=== PATIENT | female | born 1955 | race Caucasian/White ===

== ENCOUNTER 2016-11-01 12:10 | Day surgery (SDC) | payer OTHER ==
[~2016-11-01] VITALS: Ht 166.4 cm; Wt 63.9 kg
[~2016-11-01 12:10] MED LIST: ACET-171 PO; DXM4T PO; IBUP200C PO; LORA0.5T PO; Lactated Ringer's 1,000 ML IV SCH; MOME30SO TP; ONDA8TAB7 PO; OXYC10TA69 PO; OXYC1TAB24 PO; PROC-4 PO; Vancomycin Inj 1,000 MG in IV Premix 1 EACH IV ONE
[2016-11-01] MEDS ORDERED: fentaNYL-PF 50 mCg/mL 2 mL Inj ONE (12:11)
[2016-11-01] MEDS ORDERED: Propofol 10,000 mCg/mL 20 mL Inj ONE (12:11)
[2016-11-01] MEDS ORDERED: Dexamethasone 4 mg/mL Inj ONE (12:11)
[2016-11-01] MEDS ORDERED: Vancomycin 1,000mg/200 mL NS IV ONE (12:47)
[2016-11-01 13:00] VITALS: BP 118/70; PULSE 66; RESP 16; O2SAT 98
[2016-11-01] MEDS ORDERED: Lactated Ringer's 1,000 ML IV ONE (13:00)
[2016-11-01] MEDS ORDERED: Bupivacaine-MPF 0.25%/EPI 30 mL Inj INJ ONE (16:30)
[2016-11-01] MEDS ORDERED: Lidocaine PF 1% 30 mL Inj INFILTRATE ONE (16:30)
[2016-11-01] MEDS ORDERED: HepLOK Flush 100 unit/mL 5 mL Inj IVFLUSH ONE (16:30)
[2016-11-01] MEDS ORDERED: Lactated Ringer's 1,000 ML IV SCH (16:42)
[2016-11-01] MEDS ORDERED: Lactated Ringer's 500 ML IV PRN (16:42)
[2016-11-01] MEDS ORDERED: EPHEDrine Sulfate 50 mg/mL Inj IVPUSH PRN (16:45)
[2016-11-01] MEDS ORDERED: Labetalol 5 mg/mL 4 mL Inj IV PRN (16:45)
[2016-11-01] MEDS ORDERED: fentaNYL-PF 50 mCg/mL 2 mL Inj IVPUSH PRN (16:45)
[2016-11-01] MEDS ORDERED: HYDROmorphone 1 mg/mL Inj IVPUSH PRN (16:45)
[2016-11-01] MEDS ORDERED: Atropine 0.4 mg/mL Inj IVPUSH PRN (16:45)
[2016-11-01] MEDS ORDERED: MetoCLOpramide 5 mg/mL 2 mL Inj IVPUSH PRN (16:45)
[2016-11-01] MEDS ORDERED: Ondansetron 2 mg/mL 2 mL Inj IVPUSH PRN (16:45)
[2016-11-01] MEDS ORDERED: Phenylephrine 10,000 mCg/mL Inj IVPUSH PRN (16:45)
[2016-11-01 17:05] VITALS: BP 121/75; PULSE 71; RESP 14; O2SAT 98
--- NOTE | 2016-11-01 18:14 | PCM.ANEP1 ---
Post Anesthesia Phase 1 PACU Phase 1 Assessment Vital Signs Vital Signs Date Time Temp Pulse Resp B/P Pulse Ox O2 Delivery O2 Flow Rate FiO2 11/01/16 17:05 36.3 71 14 121/75 98 Room Air 11/01/16 13:00 36.6 66 16 118/70 98 Room Air Anesthetic Administered: MAC Level of Alertness: Awake, talking LUCIANO's with Equal Strength: Yes Pain: No Nausea or Vomiting: No Oxygen Delivery: Simple Mask Lungs: Clear to Auscultation, Normal Air Movement Dermatome Level: Full Sensation Isacc Oliveira MD Nov 01, 2016 18:14
--- NOTE | 2016-11-01 18:14 | PCM.HPANE ---
Patient Data Surgeon Admitting Provider: Attending Provider:Pato Mojica MD Primary Care Physician:Sarah Mahajan MD Other Provider:Cydney Schofieldingham Anesthesia Reason for Visit Large B-Cell Lymphoma Ht/WT & BMI Height (Feet): 5 Height (Inches): 5.5 Weight (Kilograms): 63.957 Body Mass Index 23.00 Allergies Coded Allergies: No Known Allergies (Verified , 11/01/16) Past Anesthesia History Anesthesia History: Denies:: Anesthesia Reactions (Pain/anxiety meds cause nausea), Malignant Hyperthermia Diabetes History Hx Diabetes?: No MRSA MRSA: No Medications Reported Medications Dexamethasone 4 Mg Tablet4 Mg PO BID Ref 0 10/30/16 Ondansetron ODT (Zofran ODT)8 Mg Tablet8 Mg PO q8hrs PRN For Nausea 10/30/16 Lorazepam 0.5 Mg Tablet0.5-1 Mg PO HS PRN For Insomnia Ref 0 10/30/16 oxyCODONE-Acetaminophen 5-325 mg 1 Each Tablet1-2 Tab PO Q6H PRN For Pain Ref 0 10/27/16 Discontinued Reported Medications Mometasone Furoate (Elocon)30 Ml Solution1 Applic TP DAILY 0.1% 10/31/16 Oxycodone ER (Oxycontin)10 Mg Tab.er.12h10 Mg PO BID 10/30/16 Prochlorperazine Maleate (Compazine)10 Mg Rkctar58 Mg PO q6hrs prn 10/27/16 Acetaminophen 500 Mg Saqmeu424 Mg PO Q4-6 HRS PRN PRN For Pain 10/13/16 Ibuprofen 200 Mg [id number] Mg PO Q4-6HRS PRN PRN For Pain Ref 0 10/13/16 Omeprazole Magnesium (Prilosec Otc)20 Mg Tablet.dr20 Mg PO DAILY Ref 0 10/27/16 Cyanocobalamin (Vitamin B-12) (Vitamin B-12)250 Mcg Uffhybm818 Mcg PO DAILY 10/13/16 Cholecalciferol (Vitamin D3) (Vitamin D)1,000 Unit Tablet1,000 Unit PO DAILY Ref 0 10/13/16 Calcium Carbonate (Calcium)600 Mg Jvftco379 Mg PO DAILY 10/13/16 History History of ENT Problems?: Yes HEENT History: Positive for:: Sinus Problem (NASAL CONGESTION/DRAINAGE) Hx of Heart Problems?: No Cardiovascular History: Denies:: Cardiac Surgery Chest Pain Congestive Heart Failure Edema Heart Murmur Hypertension Irregular Heartbeat Pacemaker Rheumatic Fever Thrombophlebitis Hx of Respiratory Problem?: Yes Respiratory History: Denies:: Asthma COPD Chest Surgery (NEW PULMONARY NODULES ON CHEST CT) Dyspnea Emphysema Hemoptysis Pneumonia Tuberculosis Use of C-PAP Machine Hx Neurologic Problems?: No Neurological History: Denies:: Alzheimer's Disease CVA Dementia Dizziness Headaches Parkinson's Disease Seizures Hx of GI Problems?: Yes Gastrointestinal History: Denies:: Cirrhosis Diverticulitis Gastroesphageal Reflux Gastrointestinal Bleeding Heartburn Hepatitis Hiatal Hernia Rectal Bleeding Other GI Pertinent History: C/OF CONSTIPATION HX OF C. DIFF AFTER A COURSE OF ABX Hx of Problems?: No Genitourinary History: Denies:: HX of Hemodialysis Kidney Stones Urinary Tract Infection Female Hx: Denies:: Currently Pelvic Inflammatory Problems with Breasts? Skin History: Denies:: History Skin Disorders? Pressure Ulcers Hx Musculoskeletal Problems?: Yes Musculoskeletal History: Positive for:: Joint Replacement (PLATE IN LEFT ANKLE ) Musculoskeletal Trauma (S/P ORIF LT ANKLE) Denies:: Back Injury Hx of Psycho/Social Problems?: No Psycho Social History: Denies:: Anxiety Bipolar Disorder Hx Depression Suicide Attempt Hx Surgeries?: Yes (ORIF LT ANKLE) Hx Any Other Health Problems?: Yes Other History: Positive for:: Cancer (LARGE B-CELL LYMPHOMA/IV ACCESS=CURRENT PROBLEM) Hospitalization Denies:: Endocrine Disease (C/OF NIGHT SWEATS) Thyroid Disease History Blood Transfusions: Denies:: Blood Transfusions Hx Diabetes: No Hx Alcohol Use: NoHx Substance Use: No Smoking Status: Unknown if Ever Smoker Have You Smoked inLast 12 mo: No Stop/Bang S-Snoring: Do You Snore Loudly: No T-Tired: feel tired, fatigued: No O-Obsered: Observed not breath: No P-Blood Pressure: treated: No B- Body Mass Index > 35 kg/m2: No A- Age over 50: Yes N- Neck Large Circumference: No G- Gender Male: No KIM Total Score: 1 Risk Assessment Category Category 1A: Patient has history of documented sleep apnea, and HAS NOT received any narcotic, sedative or anesthesia administration during this stay. Category 1B: Patient has history of documented sleep apnea, and HAS received any narcotic , sedative or anesthesia administration during this stay Category 2: Patient has SUSPECTED Obstructive Sleep Apnea, and HAS received any narcotic , sedative or anesthesia administration during this stay. Category 3: Patient has SUSPECTED Obstructive Sleep Apnea and HAS NOT received narcotic, sedative or anesthesia administration during this stay. Category 4: Outpatient in Procedural Areas with known sleep apnea or who screen positive for High Risk via the STOP/BANG questionnaire. Exam Exam General Appearance: Alert, Oriented X3, Cooperative, No Acute Distress HEENT/AIRWAY: MP 2, Neck Movement (FROM), Mouth Opening (3 FBMO) Lungs: Clear to Auscultation, Normal Air Movement Heart: Exam Unremarkable, Regular Rate/Rhythm, No Murmurs/Rubs/Gallops Plan Impression Patient chart reviewed, patient interviewed and anesthestic plan with risks, benefits, and alternatives discussed, and informed consent obtained. NPO Status: > 8 hrs ASA Physical Status: ASA3 Severe Disease (B-cell lymphoma) Anesthetic Plan: MAC Bene/Risks/Altern/Consents: Yes HP Complete Prior to Induction: Yes Isacc Oliveira MD Nov 01, 2016 12:13
--- NOTE | 2016-11-01 18:14 | PCM.ANEP2 ---
Post Anesthesia Evaluation ASA/CMS Post Anesthesia VS in Patient's Normal Range?: Yes Resp Stable; Airway Patent?: Yes CV Function & Hydration Stable: Yes Mental Status Recovered?: Yes Pain control Satisfactory?: Yes N/V Control Satisfactory?: Yes Isacc Oliveira MD Nov 01, 2016 18:14
--- NOTE | 2016-11-01 18:15 | DRSVH ---
PROCEDURE: X-RAY CHEST ONE VIEW, PORTABLE ([id number]) INDICATIONS: port TECHNIQUE: One view of the chest was acquired. COMPARISON: None. FINDINGS: Surgical changes and devices: There is a left Port-A-Cath, the tip of which is in the SVC. Lungs and pleura: No pleural effusions or pneumothorax. Lungs are clear. Mediastinum: Mediastinal contours appear normal. Heart size is normal. Bones and chest wall: No suspicious bony lesions. Overlying soft tissues appear unremarkable. IMPRESSION: Left Port-A-Cath. No acute cardiopulmonary findings. Dictated by: Laura Arellano M.D. on 11/01/2016 at 18:13 Approved by: Laura Arellano M.D. on 11/01/2016 at 18:14
[2016-11-01 18:30] VITALS: BP 127/76; PULSE 68; RESP 15; O2SAT 98
--- NOTE | 2016-11-01 19:48 | OP ---
[address] [address] OPERATIVE REPORT PATIENT: MAYCOL IRBY : 1955 MR#: [id number] ADMIT: 11/01/2016 JOB ID: [id number] DATE OF SURGERY: 11/01/2016 ANESTHESIA: MAC with local. PREOPERATIVE DIAGNOSIS(ES): Lymphoma. POSTOPERATIVE DIAGNOSIS(ES): Lymphoma. OPERATIVE PROCEDURE: Insertion of left subclavian vein Port-A-Cath using fluoroscopy with interpretation for guidance. SURGEON: Pato Mojica MD MANUFACTURING TEST TECHNICIAN: None. COMPLICATIONS: None. ESTIMATED BLOOD LOSS: Minimal. CONDITION: Satisfactory. SPECIMEN: None. FINDINGS: A standard port was placed through the left subclavian vein without complication. INDICATION/SIGNIFICANT HISTORY: The patient is a 61-year-old female with a recent diagnosis of lymphoma after developing abdominal pain. OPERATIVE TECHNIQUE: The patient was taken to the operating room and placed in supine position. Light sedation was administered and perioperative antibiotics were given. The chest and neck were prepped and draped in standard surgical fashion. A procedure pause was performed. The patient was placed in Trendelenburg position, and the left subclavian vein was accessed with the first attempt using a finder needle. A wire was inserted and position confirmed using fluoroscopy. The wire was seen to course through the heart into the inferior vena cava. Local anesthetic was injected, and a subcutaneous pocket was created in the left anterior chest. A standard Port-A-Cath was secured in place using three 2-0 Prolene sutures. The catheter was tunneled up to the wire exit point and inserted into the vein using the Seldinger technique under fluoroscopic visualization. Good final position was confirmed. The port aspirated and flushed nicely. This was locked with heparin. The skin was closed using 3-0 Vicryl deep dermals followed by a running 4-0 Monocryl. Dermabond was applied. The entire procedure was well tolerated without complication.
[2016-11-09] MEDS ORDERED: DXM4T PO (12:56)
[2016-11-27] MEDS ORDERED: LEVO500T79 PO (15:15)
[2016-12-05] MEDS ORDERED: PRE20 PO (12:47)
[2016-12-05] MEDS ORDERED: PRED50TA PO (12:47)
[2016-12-12] MEDS ORDERED: PROC-4 PO (10:37)
[2016-12-27] MEDS ORDERED: PRED5TAB PO (08:36)
[2016-12-27] MEDS ORDERED: prednison (08:36)
[2017-01-05] MEDS ORDERED: LEVO500T79 PO (08:42)
[2017-01-16] MEDS ORDERED: PRE20 PO (12:34)
== END 2016-11-01 23:59 | disposition home or self-care (01) ==
LOC: SAS 12:10
PROVIDERS: ATTEND General Practice
DX: C85.10 Unspecified B-cell lymphoma, unspecified site (principal); Z80.1 Family history of malignant neoplasm of trachea, bronchus and lung
CPT/HCPCS: 36561; 71010; 77001; C1788; J1100; J1642; J1885; J3010; J3370; J7120

== ENCOUNTER 2017-01-05 09:15 | Inpatient (IN) | payer OTHER ==
[~2017-01-05] VITALS: Ht 165.1 cm; Wt 57.5 kg
[2017-01-05] VITALS (10 sets, daily range): BP systolic 91–115; BP diastolic 57–72; PULSE 97–144; RESP 14–21; O2SAT 94–100
[~2017-01-05 09:15] MED LIST changes: -ACET-171 PO; -DXM4T PO; -IBUP200C PO; +LEVO500T79 PO; -Lactated Ringer's 1,000 ML IV SCH; -MOME30SO TP; -OXYC10TA69 PO; +PRED5TAB PO; -Vancomycin Inj 1,000 MG in IV Premix 1 EACH IV ONE; +prednison
[2017-01-05] MEDS ORDERED: 0.9% Sodium Chloride 1,000 ML IV ONE (09:42)
--- NOTE | 2017-01-05 09:47 | ED.REPORT ---
HPI-General Illness Date of Service Jan 05, 2017 ED Provider: Brock Cameron MD The patient is a 61 year old female currently undergoing treatment for large B- cell lymphoma who was sent to the ED by her oncology clinic for tachycardia and hypotension (85/62) noted this morning. Associated symptoms include recent fatigue, nausea, vomiting, and generalized weakness.The patient denies chest pain, SOB, abdominal pain, cough, fever, rash, or other symptoms. Nursing Notes Stated Complaint: HEART RATE ISSUE/SENT BY Chief Complaint: General Complaint Nursing Notes Reviewed: Yes Allergies: Coded Allergies: No Known Allergies (Verified , 01/05/17) Scheduled Levofloxacin (Levofloxacin) 500 Mg Tablet 500 MG PO daily x 7 dys Lorazepam (Ativan) 0.5 Mg Tablet 0.5-1 MG PO HS Prochlorperazine Maleate (Compazine) 10 Mg Tablet 10 MG PO q4hrs prn Scheduled PRN Acetaminophen (Acetaminophen) 325 Mg Tablet 650 MG PO Q4H PRN PRN Bone Pain Ibuprofen (Ibuprofen) 200 Mg Capsule 400 MG PO QID PRN PRN Bone pain Ondansetron ODT (Ondansetron ODT) 8 Mg Tab.rapdis 8 MG PO Q4H PRN PRN For Nausea oxyCODONE-Acetaminophen 5-325 mg (oxyCODONE-Acetaminophen 5-325 mg) 1 Each Tablet 1-2 TAB PO Q6H PRN PRN For Pain General Time Seen by MD: 09:23 Chief Complaint Other (Tachycardia and Hypotension) Hx Obtained From: Patient Arrived By: Walk-in Sudden in Onset?: No Onset Occurred: 1 - 4 hours ago (Hypotension and tachycardia noticed this morning in clinic) Symptom Duration: Since onset Severity: Current: No pain currently Severity: Maximum: No pain Pertinent Negative: Relieved by nothing Context Related History: Reports Cancer Recent Healthcare: Recent doctor visit Past Medical History Past Medical History 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 C. Diff infection Past Surgical History Left ankle ORIF and plate placement Smoking History Unknown if Ever Smoker Social History Other Social History: Good social support Ambulatory Status Independent Review of Systems + Tachycardia and hypotension (85/62 in clinic) Full Review of Systems Constitutional: Reports: Fatigue, Weakness - generalized, Denies: Fever Respiratory: Denies: Non-productive cough, Shortness of breath Cardiovascular: Denies: Chest pain GI: Reports: Nausea, Vomiting, Denies: Abdominal pain Skin: Denies Rash Complete sys rev & neg: except as marked. Physical Exam Vital Signs Vital Signs Date Time Temp Pulse Resp B/P Pulse Ox O2 Delivery O2 Flow Rate FiO2 01/05/17 12:46 106 104/64 100 Room Air 01/05/17 12:13 110 21 110/67 01/05/17 10:48 118 14 106/57 100 Room Air 01/05/17 10:11 36.9 117 15 92/60 98 Nasal Cannula 2 01/05/17 09:18 36.1 144 18 91/67 100 Room Air Initial VS: Reviewed Head / Eyes: Atraumatic, Normocephalic Neck: Supple, Full range of motion Skin: Warm, Dry Psychiatric: Mood/affect normal, Behavior normal, Normal thought content General/Constitutional: Awake, Alert, No acute distress Appearance / Presentation: Positive: Ill appearing/not toxic ENT: Airway patent, Pharynx NL Mouth: Positive: Mucous membranes dry Respiratory / Chest: Breath sounds NL, Breath sounds = bilat, No respiratory distress Cardiovascular: Regular rhythm, Heart sounds NL Heart Rate / Rhythm: Positive: Tachycardia Abdomen: Soft, No guarding, No rebound Tenderness/Guarding/Rebound: Positive: Tender diffuse (Upper) Lower Extremity / Pelvis / MS: Neurologic intact, Vascular intact Neurologic: Oriented X3, Speech NL, No motor deficits, No sensory deficits Interpretation & Diagnostics Lab Results Interpretation Result Diagram: 01/05/17 0935 01/05/17 0935 Test 01/05/17 09:35 01/05/17 10:35 White Blood Count 1.1th/mm3 (3.8-10.1) Red Blood Count 3.11mil/mm3 (3.90-5.20) Hemoglobin 9.5g/dL (12.0-15.6) Hematocrit 27.8% (35.0-46.0) Mean Corpuscular Volume 89.4fL (81-100) Mean Corpuscular Hemoglobin 30.5pg (27.0-35.0) Mean Corpuscular Hemoglobin Concent 34.2% (32.0-37.0) Red Cell Distribution Width 14.9% (12.3-15.4) Platelet Count 93bil/L (150-400) Neutrophils (%) (Auto) 55% (40-74) Lymphocytes (%) (Auto) 12% (14-46) Monocytes (%) (Auto) 24% (4-12) Eosinophils (%) (Auto) 1% (0-5) Basophils (%) (Auto) 1% (0-3) Band Neutrophils % 7% (1-5) Prothrombin Time 10.8sec (8.1-12.5) Prothromb Time International Ratio 1.01ratio Activated Partial Thromboplast Time 26.1sec (22.8-33.0) Sodium Level 132mEq/L (134-144) Potassium Level 3.7mEq/L (3.5-5.2) Chloride Level 92mEq/L (97-108) Carbon Dioxide Level 25mmol/L (18-29) Blood Urea Nitrogen 12mg/dL (8-27) Creatinine 0.70mg/dL (0.57-1.00) Estimat Glomerular Filtration Rate 122mL/min (>59) Glucose Level 138mg/dL (60-99) Lactic Acid Level 2.8mmol/L (0.4-2.0) Calcium Level 9.5mg/dL (8.5-10.1) Magnesium Level 2.0mg/dL (1.6-2.6) Total Bilirubin 0.5mg/dL (0.0-1.2) Aspartate Amino Transf (AST/SGOT) 12U/L (0-50) Alanine Aminotransferase (ALT/SGPT) 15U/L (0-32) Alkaline Phosphatase 63U/L (25-165) Troponin T 0.010ug/L (0.0-0.011) Total Protein 6.3g/dL (6.4-8.4) Albumin 3.5g/dL (3.4-5.0) Lipase 14U/L (13-60) Urine Color Yellow (YELLOW) Urine Appearance Hazy (CLEAR,HAZY) Urine pH 7.0 (5.0-8.0) Urine Specific Alexander 1.015 (1.003-1.035) Urine Protein 30mg/dL (NEG,TRACE) Urine Glucose (UA) Negativemg/dL (NEGATIVE) Urine Ketones Negativemg/dL (NEGATIVE) Urine Occult Blood Trace (NEGATIVE) Urine Nitrite Negative (NEGATIVE) Urine Bilirubin Negative (NEGATIVE) Urine Urobilinogen Normalmg/dL (NORMAL) Urine Leukocyte Esterase Negative (NEGATIVE) Urine RBC 0-2/hpf (0-2) Urine WBC 0-5/hpf (0-5) Urine Epithelial Cells Occasional/hpf (NONE-MOD) Urine Crystals Oxalic acid crystals (NONE Urine Bacteria None/hpf (NONE-FEW) Urine Hyaline Casts None/lpf (NONE) Urine Granular Casts None seen (NONE SEEN) Urine Waxy Casts None seen (NONE SEEN) Urine Red Blood Cell Casts None seen (NONE SEEN) Urine White Blood Cell Casts None seen (NONE SEEN) Urine Mucus Present (None Seen) Urine Trichomonas None seen (NONE SEEN) Urine Yeast None (NONE SEEN) Urinalysis Comment None Urine Culture Reflexed Not indicated ECG Interpretation ECG Interpretation: Sinus tachycardia rate 118 Atrial premature complexes Abnormal R-wave progression, early transition Time: 09:52 Interpreted by: ED physician X-Ray Chest Interpretation Chest Xray Interpretation: IMPRESSION: 1. No acute cardiopulmonary disease. Dictated by: Sebastian Velasco M.D. on 01/05/2017 at 10:43 View: Portable, 1 view Interpretation / Wet Read by: Interpret - Radiologist Re-Eval/Medical Decision Med Decision/Clinical Course In summary, 61-year-old female with complex past medical history including diffuse large B-cell lymphoma presented to the ED for evaluation of tachycardia and hypotension since earlier today. As per above, no obvious source for infection, however given her immunocompromise, decision made to treat for sepsis of unknown etiology. She is not having any chest pain, EKG with no evidence of atrial fibrillation or acute ischemic changes. Discussed the patient with both the hospitalist and Dr. Kc - will admit for further eval and mgmt as noted elsewhere. Time of Eval: 12:44 Patient Status: Condition improved Re-Evaluation/Progress Note: Patient is feeling better. Discussed with patient lab and x-ray results, oncology consult, diagnosis, and plan for admit. Patient agrees with plan for care and all questions were addressed. Consultation #1: Referral / Consult Name: Kojo Ferris MD Call Returned at: 12:16 [employer] Program Compliance Specialist: Agrees with eval, Agrees with plan Note: Oncology: Discussed patient's case. Consultation #2: Referral / Consult Name: Wilmer Dominguez MD Consulted With: Hospitalist Call Returned at: 12:48 [employer] Program Compliance Specialist: Agrees with eval, Agrees with plan, Accepts admit Counseled Regarding: Diagnosis, Lab results, Need for admission Discharge & Departure Primary Impression: Sepsis due to other etiology Disposition: ADMITTED TO HOSPITAL Discharge Condition All VS Reviewed: Yes Condition: Stable Referrals: Sarah Mahajan MD (PCP) Crit Care Except Billable Proc Time Spent: 30-74 minutes Services Performed: Patient management by me, Time spent at bedside, Reviewing test results, Reviewing imaging, Discussing patient care Critical Care Notes: Please see MDM Scribe Attestation Portions of this note were transcribed by Izzy Abdullahi. I, Dr. Cameron, personally performed the history, physical exam, and medical decision-making; I reviewed and confirmed the accuracy of the information in the transcribed note. Signed by: Yaron Xiong, 01/05/2017, 13:50 copies to: Sarah Mahajan MD, William B MD Jan 05, 2017 09:47 IZZY ABDULLAHI Jan 05, 2017 09:50
[2017-01-05 09:49] LABS: Mean Corpuscular Hemoglobin 30.5 pg (27.0-35.0); Mean Corpuscular Volume 89.4 fL (81-100); Platelet Count 93 bil/L (150-400)
[2017-01-05 10:05] LABS: INR 1.01 ratio
[2017-01-05] MEDS ORDERED: Vancomycin Dose per Pharmacist XX ONE (10:05)
[2017-01-05] MEDS ORDERED: Piperacillin-Tazo 3.375 Gm Inj 3.375 GM in Dextrose 5% Minibag Plus 50 ML IV ONE (10:05)
[2017-01-05] MEDS ORDERED: Vancomycin Inj 1,250 MG in 0.9% Sodium Chloride 250 ML IV ONE (10:10)
[2017-01-05 10:11] LABS: TROPONIN T 0.01 ug/L (0.0-0.011)
[2017-01-05 10:26] LABS: BASOPHILS % (AUTO) 1 % (0-3); EOSINOPHILS % (AUTO) 1 % (0-5); MONOCYTES % (AUTO) 24 % (4-12); NEUTROPHILS % (AUTO) 55 % (40-74)
--- NOTE | 2017-01-05 10:47 | DRSVH ---
PROCEDURE: X-RAY CHEST ONE VIEW, PORTABLE ([id number]) INDICATIONS: fatigue TECHNIQUE: One view of the chest was acquired. COMPARISON: [facility], CR, XR CHEST 1VW (PORTABLE), 11/01/2016, 17:49. FINDINGS: Surgical changes and devices: Left subclavian Port-A-Cath appears stable in position. Lungs and pleura: No pleural effusions or pneumothorax. Lungs are clear. Mediastinum: Mediastinal contours appear normal. Heart size is normal. Bones and chest wall: No suspicious bony lesions. Overlying soft tissues appear unremarkable. IMPRESSION: 1. No acute cardiopulmonary disease. Dictated by: Sebastian Velasco M.D. on 01/05/2017 at 10:43 Approved by: Sebastian Velasco M.D. on 01/05/2017 at 10:45
[2017-01-05] MEDS ORDERED: ACET325T51 PO (10:52)
[2017-01-05] MEDS ORDERED: IBUP200C PO (10:52)
[2017-01-05 11:18] LABS: APPEARANCE,URINE HAZY (CLEAR,HAZY); COLOR,URINE YELLOW (YELLOW); OCCULT BLOOD,URINE TRACE (NEGATIVE); UROBILINOGEN,URINE NORMAL (NORMAL)
[2017-01-05] MEDS ORDERED: LORA-302 PO (12:51)
[2017-01-05] MEDS ORDERED: ONDA8TAB10 PO (12:51)
[2017-01-05] MEDS ORDERED: Alum-Mag Hydrox-Simeth 30 mL Suspension PO PRN (14:00)
[2017-01-05] MEDS ORDERED: Polyethylene Glycol (PEG) 17 Gm Powder PO PRN (14:00)
[2017-01-05] MEDS ORDERED: Vancomycin Dose per Pharmacist XX SCH (14:10)
--- NOTE | 2017-01-05 14:15 | PCM.HPMED ---
Subjective Date of Service Jan 05, 2017 Primary Provider: Admitting Physician: Wilmer Dominguez MD Primary Care Physician: Kojo Ferris MD Attending Physician: Wilmer Dominguez MD Chief Complaint: Sent to ER by primary oncologist for neutropenic fever Generalized weakness History of Present Illness: This is a 61 years old female who moves a past medical history of lymphoma currently on chemotherapy last session being approximately 10 days ago. Patient has been feeling very weak lately and went to her primary oncologist Dr. Gary . She was noted to be febrile. Given patient being neutropenic and has pancytopenia secondary to chemotherapy, she is tender over the hospital for admission. Here in the ER patient was found to have a systolic blood pressure around 70. Pressure improve up to around 90 after 2 L of normal saline bolus. Initial workup so pancytopenia with a white cell count of 1. Patient is being admitted to the hospital for IV antibiotics and treatment for neutropenic fever Review of Systems: Review of system is pertinent for generalized weakness, fever as described above ,otherwise complaints of usual I 12 points is negative. Allergies Coded Allergies: No Known Allergies (Verified , 01/05/17) Home Medications Levofloxacin (Levofloxacin) 500 Mg Tablet 500 MG PO daily x 7 dys Lorazepam (Ativan) 0.5 Mg Tablet 0.5-1 MG PO HS Prochlorperazine Maleate (Compazine) 10 Mg Tablet 10 MG PO q4hrs prn Scheduled PRN Acetaminophen (Acetaminophen) 325 Mg Tablet 650 MG PO Q4H PRN PRN Bone Pain Ibuprofen (Ibuprofen) 200 Mg Capsule 400 MG PO QID PRN PRN Bone pain Ondansetron ODT (Ondansetron ODT) 8 Mg Tab.rapdis 8 MG PO Q4H PRN PRN For Nausea oxyCODONE-Acetaminophen 5-325 mg (oxyCODONE-Acetaminophen 5-325 mg) 1 Each Tablet 1-2 TAB PO Q6H PRN PRN For Pain PMH 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 C. Diff infection Surgical History Left ankle ORIF and plate placement Family History Reviewed and non contributory to the present illness Social History Hx Alcohol Use: No Hx Substance Use: No Hx Tobacco Use: No Smoking Status: Unknown if Ever Smoker Living Arrangement: with Family Other Exam Vital Signs Vital Sign - Last Date Time Temp Pulse Resp B/P Pulse Ox O2 Delivery O2 Flow Rate FiO2 01/05/17 13:59 37.2 106 16 100/66 100 Room Air 01/05/17 13:39 2 Exam Gen : Chronically ill appearing, in no acute distress HEENT : PERRL, sclerae anicteric. Neck: Supple, trachea midline, no JVD, no cervical lymphadenopathy Chest: Normal respiratory effort, Long l: Clear bilaterally, no wheezing Heart S1-S2 regular rate and rhythm no murmur no gallop Abdomen: Soft non tender, non distended, bowel sounds audible. Extremities: No edema, no calf tenderness, no cyanosis Skin: No rash, no ulcers. Neuro :Grossly non focal Lab and Diagnostics Result Diagram: 01/05/17 0935 01/05/17 0935 X-Rays, CTs and MRIs Chest X-ray reviewed : No acute cardiopulmonary disease Assessment & Plan 1. Neutropenic fever with hypotension Sent to Er by primary cardiology due to fever. Will start empiric antibiotic : Zosyn and vancomycin. Chest X-ray and urine analysis are negative . Blood culture in process. Infection disease to be consulted . Patient to be seen by oncology . Last chemotherapy around 10 days ago . 2. Hypotensive shock : Cause unknown . clinically doesn't look like sepsis clinically but this is an immunocompromised patient . Probably fluid depletion due to poor oral intake. Patient with very poor appetite and generalized weakness and debilitated Stat NS @ 100 ml/hr . No need for pressors at this time Monitor electrolytes and renal function 3. Pancytopenia secondary to chemotherapy . H/H not at transfusion threshold and platelet count is int he 90 Will monitor closely 4. Diffused B -cell Lymphoma :Currently on chemotherapy Oncology to see pt in consultation . 5. Hyponatremia Stable but this is a very sick patient , immunocompromised, on active chemotherapy for diffused large B-cell lymphoma Plan of care as above and to be adjusted as per clinical course Discussed with ER physician Dr Cameron VTE Prophylaxis: SCDs Time spent 75 minutes Wilmer Dominguez MD Jan 05, 2017 14:15
[2017-01-05] MEDS: Ondansetron 2 mg/mL 2 mL Inj IVPUSH PRN ×2 (14:45→21:47)
[2017-01-05] MEDS: Lactated Ringer's 1,000 ML IV SCH (14:45)
--- NOTE | 2017-01-05 17:04 | NUR ---
Social Work: Screen D: Per EMR review, pt is a 61 year old female admitted for sepsis of an unknown source. Pt is [facility]. Pt has no supplement. PCP is not listed- pt followed by Dr. Wallace from Oncology. NOK is pt's spouse Horace Orozco. Advanced directives not completed- information provided to patient. Readmit score not entered at this time. A: Pt lives in [place] with her spouse. She is I at baseline. Per MD, pt being admitted for IV ABX and neutropenic fever. P: Evolving; Anticipate pt to likely discharge home when medically stable; ACADEMIC COUNSELOR to continue to follow and assess for needs. ELVIS Staton
[2017-01-05] MEDS: Piperacillin-Tazo 3.375 Gm Inj 3.375 GM in Dextrose 5% Minibag Plus 50 ML IV SCH (17:25)
--- NOTE | 2017-01-05 18:12 | NUR ---
Admit/Tele/BP Denies chest pain/pressure/discomfort. Tele sinus/tachy 90s-110s, per tele up to 150s when ambulating to BR. BP low 100s/mid 60s since arrival to unit -- LR infusing at 75 per MD orders. No ectopy, distal pulses strong, no edema noted. No reports of SOB. SPO2 on RA 100%. Denies cough. Reports mild nausea, takes zofran PO at home Q8 hours. PRN IV Zofran given. Bowel tones hyperactive, reports decreased appetite. Reports mild lower abdominal pain with light palpation. Denies diarrhea/constipation. Voiding without complication. Alert and oriented x3, LUCIANO, reports full sensation.
[2017-01-05] MEDS ORDERED: oxyCODONE-Acetamin 5-325 mg Tablet PO PRN (18:50)
[2017-01-05] MEDS: Vancomycin Inj 750 MG in 0.9% Sodium Chloride 250 ML IV SCH (21:42)
[2017-01-05] MEDS: LORazepam 0.5 mg Tablet PO SCH (21:48)
[2017-01-06] VITALS (8 sets, daily range): BP systolic 89–112; BP diastolic 53–68; PULSE 95–109; RESP 16–20; O2SAT 96–99
--- NOTE | 2017-01-06 00:09 | CCS NOTE ---
[facility] [address], [address] [address] MEDICAL ONCOLOGY OFFICE NOTE PATIENT: MAYCOL IRBY : 1955 MR#: [id number] DATE: 01/05/2017 JOB ID: [id number] DATE: 01/05/2017 I saw the patient today in the office leading to the hospitalization. For details, please refer to my notes of the office visit earlier today. She was seen in the hospital as well this afternoon. Her workup was negative for atrial fibrillation and she was in sinus tachycardia associated with hypotension. I agree that infectious etiology should be covered although clinically it appears less likely. She was on prophylactic levofloxacin at home that she has been taking over the past six days. Antibiotic coverage has been started with vancomycin and Zosyn. The patient has not been febrile at any point. I started her back on the G-CSF to be continued at 480 mcg of Granix daily. She already is looking significantly better this afternoon compared to the mid morning with heart rate coming down to around 100 and blood pressure also improving with hydration. I am hopeful that she can be discharged after a couple of days if her blood pressure improves and white count improves as well ideally with absolute neutrophil count of greater than 1200.
[2017-01-06] MEDS: Piperacillin-Tazo 3.375 Gm Inj 3.375 GM in Dextrose 5% Minibag Plus 50 ML IV SCH ×3 (00:30→18:14)
[2017-01-06] MEDS: Lactated Ringer's 1,000 ML IV SCH (03:17)
[2017-01-06 04:06] LABS: EOSINOPHILS % (AUTO) 0 % (0-5); Mean Corpuscular Hemoglobin 30.6 pg (27.0-35.0); Mean Corpuscular Volume 91.5 fL (81-100); Platelet Count 68 bil/L (150-400)
[2017-01-06 04:36] LABS: BASOPHILS % (AUTO) 3 % (0-3); MONOCYTES % (AUTO) 10 % (4-12); NEUTROPHILS % (AUTO) 49 % (40-74)
--- NOTE | 2017-01-06 06:13 | NUR ---
Insomnia Patient put billing collections specialist light with complaint of difficulty sleeping. Scheduled PO ativan was not effective. Page to night hospitalist. New order obtained for ambien. On re-check after ambien administration, patient noted to be sleeping.
--- NOTE | 2017-01-06 07:45 | NUR ---
BP BP 89/53. HR 109. Notified MD. ordered 500 mL bolus NS. Ordered 1000 L NS to run at 100 mL/hr. DC'd LR. Recheck BP 113/74 HR 95. Care continues.
[2017-01-06 09:14] LABS: BASOPHILS % (AUTO) 4 % (0-3); EOSINOPHILS % (AUTO) 1 % (0-5); MONOCYTES % (AUTO) 6 % (4-12); NEUTROPHILS % (AUTO) 81 % (40-74)
[2017-01-06] MEDS ORDERED: 0.9% Sodium Chloride 500 ML IV ONE (09:25)
[2017-01-06] MEDS: Vancomycin Inj 750 MG in 0.9% Sodium Chloride 250 ML IV SCH ×2 (09:25→22:07)
--- NOTE | 2017-01-06 11:53 | PCM.PNMED ---
Subjective Date of Service Jan 06, 2017 Subjective Follow up for neutropenic fever. Hypotension Patient BP still in the low side this morning with systolic around 80. No chest pain , no shortness of breath, no fever, no chills Exam Vital Signs Vital Sign - Last Date Time Temp Pulse Resp B/P Pulse Ox O2 Delivery O2 Flow Rate FiO2 01/06/17 10:45 104 01/06/17 09:03 36.8 16 89/53 97 Room Air 01/05/17 13:39 2 Intake and Output 01/05/17 01/05/17 01/06/17 Cumulative From/Thru 15:00 23:00 07:00 01/05/17 09:18 - 01/06/17 06:37 Intake Total 1000 ml 803 ml 965 ml 2768 ml Output Total 1000 ml 1000 ml Balance 1000 ml 803 ml -35 ml 1768 ml Intake Oral 640 ml 350 ml 990 ml IV Total 1000 ml 163 ml 615 ml 1778 ml Output Urine Total 1000 ml 1000 ml # Voids 3 3 # Bowel Movements 1 1 Exam Gen : AAA . NAD HEENT : PERRL, sclerae anicteric. Neck: Supple, trachea midline, no JVD, no cervical lymphadenopathy Chest: No deformity, Normal respiratory effort, Long : Clear bilaterally, no wheezing Heart S1-S2 regular rate and rhythm no murmur no gallop Abdomen: Soft non tender, non distended, bowel sounds normal al quadrants Extremities: No edema, no calf tenderness, no cyanosis Skin: No rash, no ulcers. Neuro :AAO x 3. Non focal IVs and Medications Medications Reviewed: Medications were reviewed in detail Lab and Diagnostics Result Diagram: 01/06/17 0349 01/06/17348 X-Rays, CTs and MRIs Chest X-ray reviewed : No acute cardiopulmonary disease Assessment & Plan 1. Neutropenic fever with hypotension Continue empiric antibiotic : Zosyn and vancomycin. Chest X-ray and urine analysis are negative . Blood culture in process. . Patient seen by oncology , agreeable to continue antibiotics but no evidence of infection 2. Hypotensive shock Still hypotensive this morning with systolic around 80, which improved to 110 after bolus of 500ml NS Cause unknown . clinically doesn't look like sepsis clinically but this is an immunocompromised patient . Probably fluid depletion due to poor oral intake. Patient with very poor appetite and generalized weakness and debilitated On NS @ 100 ml/hr . No need for pressor at this time,. Monitor electrolytes and renal function 3. Pancytopenia secondary to chemotherapy . H/H not at transfusion threshold and platelet count is int he 90 Will monitor closely 4. Diffused B -cell Lymphoma :Currently on chemotherapy Oncology consult and recommendation noted . 5. Hyponatremia Clinically better today . BP still in the low side and improved after NS 500 ml bolus x 1 . Continue NS and current antibiotics Patient is afebrile and has no chills . CBC, CMP in am Discharge anticipated within 24- 48 hours VTE Prophylaxis: SCDs VTE Mechanical Devices: Intermittant Pneumatic CD Resuscitation Status: CPR: Attempt Resuscitation Time spent 35 minutes Wilmer Dominguez MD Jan 06, 2017 11:53
--- NOTE | 2017-01-06 13:36 | NUR ---
Ambulation Pt ready to ambulate. MD notified. Ambulation around unit okay per MD. Care continues.
[2017-01-06] MEDS ORDERED: Vancomycin Dose per Pharmacist XX SCH (14:31)
[2017-01-06] MEDS: 0.9% Sodium Chloride 1,000 ML IV SCH ×2 (18:13→19:30)
[2017-01-06] MEDS: LORazepam 0.5 mg Tablet PO SCH (22:05)
[2017-01-07] VITALS (10 sets, daily range): BP systolic 99–123; BP diastolic 58–74; PULSE 94–113; RESP 16–20; O2SAT 95–99
[2017-01-07] MEDS: Piperacillin-Tazo 3.375 Gm Inj 3.375 GM in Dextrose 5% Minibag Plus 50 ML IV SCH (01:04)
--- NOTE | 2017-01-07 04:18 | NUR ---
Sleep Patient expresses worry at start of shift that her medications did not give her adequate sleep last night. Discussed with patient options for trying the same medications again or trying something different. PRN ambien and ativan given at HS per orders. Patient noted to be sleeping on subsequent checks. Interruptions minimized to allow patient to sleep as much as possible.
[2017-01-07 04:40] LABS: Mean Corpuscular Hemoglobin 29.7 pg (27.0-35.0); Platelet Count 78 bil/L (150-400)
[2017-01-07 04:56] LABS: BASOPHILS % (AUTO) 0 % (0-3); EOSINOPHILS % (AUTO) 0 % (0-5); MONOCYTES % (AUTO) 8 % (4-12); NEUTROPHILS % (AUTO) 77 % (40-74)
[2017-01-07] MEDS: 0.9% Sodium Chloride 1,000 ML IV SCH ×3 (05:30→22:05)
[2017-01-07] MEDS ORDERED: Vancomycin Serum Trough XX ONE (08:00)
[2017-01-07] MEDS ORDERED: Vancomycin Inj 1,000 MG in IV Premix 1 EACH IV SCH (10:30)
--- NOTE | 2017-01-07 11:41 | PCM.PHAPRO ---
Progress Sent to ER by primary oncologist for neutropenic fever Generalized weakness VANCOMYCIN DOSING PER PHARMACY Indication: Suspected neutropenic fever WBC: 11 SCr: 0.62 (stable) Blood cultures: NGTD Vancomycin trough: 8.3 A/P -Subtherapeutic level with trough drawn after prior to 4th dose. -Will change to vancomycin 1,000mg q12h -Trough to be scheduled 01/08/17@2130 (1hr prior). Ryan Rodriguez, PharmD Ryan Rodriguez Jan 07, 2017 11:41
--- NOTE | 2017-01-07 13:15 | NUR ---
Feet Pt stated she is having difficulty pulling feet toward head this shift. States she has been having tingling for past 2-3 weeks. Stated this morning is the first time unable to pull feet toward face. MD notified and assessed. Care continues.
--- NOTE | 2017-01-07 13:43 | PCM.PNMED ---
Subjective Date of Service Jan 07, 2017 Exam Vital Signs Vital Sign - Last Date Time Temp Pulse Resp B/P Pulse Ox O2 Delivery O2 Flow Rate FiO2 01/07/17 12:00 36.8 111 16 103/66 98 Room Air 01/05/17 13:39 2 Intake and Output 01/06/17 01/06/17 01/07/17 Cumulative From/Thru 15:00 23:00 07:00 01/05/17 09:18 - 01/07/17 06:06 Intake Total 1400 ml 1005 ml 5173 ml Output Total 2250 ml 1000 ml 4250 ml Balance -850 ml 5 ml 923 ml Intake Oral 1400 ml 400 ml 2790 ml IV Total 605 ml 2383 ml Output Urine Total 2250 ml 1000 ml 4250 ml # Voids 3 # Bowel Movements 1 2 Exam Gen : Chronically ill appearing. AAA . NAD HEENT : PERRL, sclerae anicteric. Neck: Supple, no cervical lymphadenopathy Chest: No deformity, Normal respiratory effort, Long : Clear bilaterally, no wheezing Heart S1-S2 regular rate and rhythm no murmur no gallop Abdomen: Benign Extremities: No edema, no calf tenderness, no cyanosis Skin: No rash, no ulcers. Neuro :AAO x 3. LE : Sensation is lightly decreased in both LE . IVs and Medications Medications Reviewed: Medications were reviewed in detail Lab and Diagnostics Result Diagram: 01/07/1742001/07/17420 X-Rays, CTs and MRIs Chest X-ray reviewed : No acute cardiopulmonary disease Assessment & Plan 1. Neutropenic fever with hypotension: Continue empiric antibiotic : Zosyn and vancomycin. Chest X-ray and urine analysis are negative . Blood culture negative to date Infectious disease consulted 2. Hypotensive shock : Improved Systolic blood pressure 120 now. Continue normal saline 75 mL/h. Monitor electrolytes and renal function 3. Pancytopenia secondary to chemotherapy . H/H not at transfusion threshold and platelet count is int he 90 Will monitor closely 4. Diffused B -cell Lymphoma :Currently on chemotherapy Oncology consult and recommendation noted . 5. Hyponatremia : Resolved 6. Foot drop. Patient is complaining about pain sensation in his bilateral and foot drop. Tangling sensation is on and off for a week or so. She denies any back pain , urinary or bowl incontinence . Sensation is intact on exam but strength is weak when asked to raise her foot up . Downward strength is intact . Will obtain LS MRI. Patient continue to improved . Her foot drop is of concern . I doubt any spinal cord involvement/ infiltration by lymphoma but an MRI is warranted Other possibility is chemotherapy induced peripheral neuropathy . Neuritis or nerve palsy is less likely given the timing and unlikely to be B/L Discharge planning ID to see patient in consultation. Case discussed with Dr. Crane VTE Prophylaxis: SCDs VTE Mechanical Devices: Intermittant Pneumatic CD Resuscitation Status: CPR: Attempt Resuscitation Time spent 35 minutes Wilmer Dominguez MD Jan 07, 2017 13:43
--- NOTE | 2017-01-07 13:52 | CONS ---
[address] [address] CONSULTATION REPORT PATIENT: MAYCOL IRBY : 1955 MR#: [id number] ADMIT: 01/05/2017 JOB ID: [id number] DATE OF SERVICE: 01/07/[address] Dominguez for this timely consult. REASON FOR CONSULTATION: Possible febrile neutropenia. HISTORY OF THE PRESENT ILLNESS: The patient is a 61-year-old woman with recently diagnosed B-cell lymphoma. She recently finished her 2nd course of R-CHOP. Following that, she developed significant neutropenia for which she has received been receiving colony-stimulating factors to improve her white count. She was also receiving prophylactic levofloxacin. Despite these measures, the patient continued to be quite neutropenic, and on January 05, she was admitted from Dr. Kc's office because of hypotension and tachycardia. It was felt that she might be dehydrated, but there was also concern about infection. One note in the chart suggests that there was a documented temperature either in Dr. Kc's office or after admission here, but I can find no confirmation of that at any point. In fact we have many negative temperatures since January 05. For her part, the patient states she was just getting diffusely weak when she was seen in Dr. Kc's office and was aware of her low blood pressure as well as tachycardia but did not have any fevers, chills or sweats. She additionally denies any sinus complaints, sore throat, cough, shortness of breath, nausea, vomiting, diarrhea, or dysuria. No skin rash was noted either. Since her admission here she had received vigorous fluid hydration and her blood pressure has improved, even as her pulse has decreased. She has had no symptoms of infection and is at the point where there is consideration about stopping antibiotics and sending her home. She has received additional cell stimulating factors and her white count has normalized. Today's main problem, however, is that she has had weakness and dorsiflexing her ankles bilaterally. She was able to ambulate to the bathroom this morning, but she notes that this weakness with dorsiflexion is quite sudden and she clearly did not have it yesterday and clearly does have it today and is of concern to her. She has had no bowel or bladder problems and no back pain or headache. PAST MEDICAL HISTORY: 1. 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 2. Distant history of C. diff. She states that in 2004 she was diagnosed and treated as an outpatient for C. diff and has never had it again. 3. Left ankle open reduction and internal fixation. 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 She traveled in August to [place] and lasts summer to [place]. She does not drink or smoke. She lives with her and they have two dogs. Her is healthy. No unusual dietary habits and no foreign travel. FAMILY HISTORY: Negative for tuberculosis in any first- or second-degree relatives. REVIEW OF SYSTEMS: The patient has no headache or sinus complaint. No sore throat, odynophagia or dysphagia. No stiff neck. No back pain whatsoever. No bowel or bladder problems. No cough, shortness of breath, chest pain. No nausea, vomiting, diarrhea. No swelling of the joints and no skin rash. She does have the weakness with dorsiflexion which came on just this morning. The remainder of the review of systems is negative. PHYSICAL EXAMINATION: Reveals an afebrile woman. Temperature 36.6, pulse 109, respiratory rate 16, blood pressure 120/65. She is saturating well on room air. She is in no distress. 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 Eyes without conjunctivitis or scleral icterus. Nose is normal. Oral cavity: No thrush, pharyngitis or hairy leukoplakia. Neck is supple without adenopathy. The entire back was carefully palpated and is nontender. Lungs are clear. Cardiac tones: Regular rate and rhythm without murmur. There is a port in the left upper chest which is nontender. The abdomen is soft and nontender. No organomegaly is appreciated. No suprapubic fullness is appreciated. She does not have a Lama catheter. She has no skin rash. There is no evidence for synovitis about any of her joints. She has excellent peripheral pulses. Her motor strength is intact except that she is profoundly weak in terms of dorsiflexion of the ankles bilaterally. She is able to plantar flex, with 5/5 strength but maybe 2/5 dorsiflexion strength. She has absent knee and ankle jerks. LABORATORY STUDIES: Include white count of 11,000. It had been as low as 1100 on January 05, but she was never actually neutropenic from an absolute point of view. She has never had a neutrophil count less than about 600. Today, of course, she has over 7000 neutrophils. Creatinine is 0.62. LFTs are normal. Procalcitonin 0.13. Urinalysis negative. Hep C, hep B negative. Blood cultures x8 bottles all negative. Chest x-ray was done and it is clear. IMPRESSION: I see no evidence for infection in this patient. She is neither neutropenic nor febrile, and as far as I can tell, has not been over the past couple days since her admission. Dr. Kc has indicated in his notes that he has a plan to give levo with subsequent cycles of R-CHOP to avoid febrile neutropenia. I think that is reasonable though one must be a little concerned about this history of Clostridium difficile, though it is quite distant. A bigger issue here is the acute onset of weakness dorsiflexing the ankles bilaterally. Given that her lymphoma was in the vicinity of her spine, I think we have to be concerned about spinal cord involvement. Likewise, I would be concerned about Guillain-[place] or a chronic inflammatory distal polyneuropathy in this patient and wonder if perhaps chemo could have played a role in this as well. RECOMMENDATIONS: 1. No antibiotics are indicated at this time and I would discontinue her vanc and Zosyn. 2. The patient's weakness and areflexia in the lower extremities certainly demands an urgent workup. Though I am not an expert in this field, I would think about MRI scan of the spine with possibly lumbar puncture to follow. Nerve conduction velocities and EMG may also be indicated. Neuro consult would make sense here. 3. ID will go ahead and sign off as there are no active infection issues but please do not hesitate to call me as things change. Thank you very much. Note, that this case was discussed with Dr. Dominguez.
--- NOTE | 2017-01-07 15:20 | NUR ---
Heart Rate Pt HR continues to remain above 110 at rest, 150s with activity per Unit Leader. notified. EKG ordered. RT called. Care continues.
--- NOTE | 2017-01-07 17:20 | DRSVH ---
PROCEDURE: MRI LUMBAR SPINE WITH AND WITHOUT CONTRAST ([id number]) INDICATIONS: B-cell lymphoma. Lower extremity weakness and tingling, foot drop. TECHNIQUE: Noncontrast sagittal T1 spin echo and T2 fast spin echo, sagittal STIR, axial T1 and T2 fast spin ech o through the lumbar spine. In cases with scoliosis, additional coronal T2 fast spin echo may be per formed. After the administration of contrast, sagittal and axial T1 spin echo with fat saturation th rough the lumbar spine. COMPARISON: [facility], MR, MR THORACIC SPINE W&WO CON, 10/27/2016, 18:35. [facility], NM, PET NECK TO MID THIGH STD, 11/08/2016, 13:17. [facility], MR, MR LUMBAR SP INE W&WO CON, 10/23/2016, 12:33. FINDINGS: Image quality: Excellent. Alignment and curvature: There is normal bony alignment. Marrow: There is abnormal signal and enhancement involving L3 vertebral body with involvement of the right pedicle consistent with metastasis. No acute vertebral body compression fractures. No suspici ous marrow enhancement. Spinal cord: Conus medullaris terminates at the L1 level. Visualized spinal cord demonstrates joshua l signal, without suspicious enhancement. Paraspinous soft tissues: Paravertebral soft tissue thickening and enhancement adjacent to L3. L1-L2: Mild loss of disc height and disc desiccation with minimal posterior disc bulge. Mild bilatera l facet arthropathy and hypertrophy of ligament and flavum. No central canal or foraminal stenosis. L2-L3: Mild bilateral facet arthropathy and hypertrophy of ligamentum flavum. No central canal or f oraminal stenosis. L3-L4: Moderate loss of disc height and disc desiccation. There is broad posterior disc bulge. Mild b ilateral facet arthropathy and hypertrophy of ligament and flavum. Mild central canal stenosis. No fo raminal stenosis. L4-L5: Mild loss of disc height and moderate disc desiccation. There is broad posterior disc bulge an d a small posterior central annular tear. Mild bilateral facet arthropathy. Mild central canal stenos is. No foraminal stenosis. L5-S1: Preservation of disc height and mild disc desiccation. There is mild posterior disc bulge. Mil d bilateral facet arthropathy. No central canal or foraminal stenosis. IMPRESSION: 1. Abnormal signal and enhancement in L3 vertebral body with associated paravertebral soft tissue thi ckening consistent with neoplasm such as B-cell lymphoma. 2. Degenerative changes in lumbar spine as described. 3. Mild central canal at L3-L4 and L4-L5. 4. No foraminal stenosis. Dictated by: Cece Jung M.D. on 01/07/2017 at 15:57 Transcribed by: SHARITA on 01/07/2017 at 16:20 Approved by: Cece Jung M.D. on 01/07/2017 at 16:39
--- NOTE | 2017-01-07 18:46 | NUR ---
Metoprolol BP 111/69 HR 112 Per order and set parameters administered 12.5 mg Metoprolol. Care continues.
--- NOTE | 2017-01-07 20:04 | NUR ---
Ambulation Pt ambulating around unit with several times this shift. Tolerated well, steady gait. Care continues.
[2017-01-07] MEDS: LORazepam 0.5 mg Tablet PO SCH (22:02)
[2017-01-08 04:02] VITALS: BP 112/77; PULSE 118; RESP 18; O2SAT 96
[2017-01-08 04:58] LABS: EOSINOPHILS % (AUTO) 0 % (0-5); Platelet Count 95 bil/L (150-400)
--- NOTE | 2017-01-08 05:04 | NUR ---
Tachycardia/ VSS / Weakness with Dorsiflexing Pt denies chest pain, Tele SR 90's to 110's at rest, up to 130-145's with activity, then back to baseline at rest. VS stable and RA sats 96-98%. Pt using BSC tonight to decrease activity and to limit increase in HR. Pt denies pain and discomfort all night. Pt still having bilateral dorsiflexing weakness tonight.
[2017-01-08 05:20] LABS: BASOPHILS % (AUTO) 0 % (0-3); MONOCYTES % (AUTO) 7 % (4-12); NEUTROPHILS % (AUTO) 71 % (40-74)
[2017-01-08 08:06] VITALS: BP 98/62; PULSE 102; RESP 16; O2SAT 96
[2017-01-08] MEDS: 0.9% Sodium Chloride 1,000 ML IV SCH ×2 (08:55→19:27)
[2017-01-08 09:36] VITALS: PULSE 97
--- NOTE | 2017-01-08 16:08 | PCM.PNMED ---
Subjective Date of Service Jan 08, 2017 Subjective Patient seen and examined at bedside . No interval changes. She is still with B/L foot drop. no bowel, nor urinary incontinence Afebrile . Exam Vital Signs Vital Sign - Last Date Time Temp Pulse Resp B/P Pulse Ox O2 Delivery O2 Flow Rate FiO2 01/08/17 09:36 97 01/08/17 08:06 37.0 16 98/62 96 Room Air 01/05/17 13:39 2 Intake and Output 01/07/17 01/07/17 01/08/17 Cumulative From/Thru 15:00 23:00 07:00 01/05/17 09:18 - 01/08/17 05:27 Intake Total 2306 ml 1928 ml 85336 ml Output Total 900 ml 2200 ml 7350 ml Balance 1406 ml -272 ml 5017 ml Intake Oral 600 ml 750 ml 4140 ml IV Total 1706 ml 1178 ml 8227 ml Output Urine Total 900 ml 2200 ml 7350 ml # Voids 3 # Bowel Movements 1 0 3 Exam Gen : AAA . NAD , very pleasant HEENT : PERRL, sclerae anicteric. Neck: Supple, no cervical lymphadenopathy Chest: No deformity, Normal respiratory effort, Long : Clear bilaterally, no wheezing, no crackles Heart Sinus tachycardia with HR 105/110. No murmir Abdomen: Benign , BS all quadrant Extremities: No edema, no calf tenderness, no cyanosis Skin: No rash, no ulcers. Neuro :AAO x 3. LE with B/L foot drop IVs and Medications Medications Reviewed: Medications were reviewed in detail Lab and Diagnostics Result Diagram: 01/08/17 0444 01/08/17 0444 X-Rays, CTs and MRIs Chest X-ray reviewed : No acute cardiopulmonary disease MRI reviewed personally . Report noted . Assessment & Plan 1. Neutropenic fever with hypotension: Antibiotic discontinued . Patient is afebrile . ID consult and recommendation appreciated 2. Hypotensive shock : Improved Systolic blood pressure 110-130 now. Continue normal saline 75 mL/h. Monitor electrolytes and renal function 3. Pancytopenia secondary to chemotherapy . H/H not at transfusion threshold and platelet count is int he 90 Will monitor closely 4. Diffused B -cell Lymphoma :Currently on chemotherapy Oncology consult and recommendation noted . 5. Hyponatremia : Resolved 6. Foot drop. MRI shows trivial findings , including an L3 vertebral body soft tissue thickening, that were discussed with oncology Dr. Kc I think her foot droop is secondary to chemotherapy probably Vincristin . I also think her tachycardia is likely related to autonomous dysfunction from chemo. Neurology, Dr Rose who will see her in consultation At this time I think she will need and ankle brace to facilitate ambulation . Physical therapy consulted Plan of care and finding discussed with patient and at bedside Hopefully home tomorrow VTE Prophylaxis: SCDs VTE Mechanical Devices: Intermittant Pneumatic CD Resuscitation Status: CPR: Attempt Resuscitation Time spent 35 minutes Wilmer Dominguez MD Jan 08, 2017 16:08
--- NOTE | 2017-01-08 16:37 | PCM.CHPMED ---
Subjective Date of Service: Jan 08, 2017 Provider requesting consult: Wilmer Dominguez MD Primary Physician: Admitting Physician: Wilmer Dominguez MD Primary Care Physician: Kojo Ferris MD Attending Physician: Wilmer Dominguez MD Chief Complaint: Chief Complaint: Foot drop History of Present Illness: Neurology Consultation Patient is a 61 year old female with history of a recent diagnosis of diffuse large B-cell lymphoma involving the paraspinal soft tissue and spleen with epidural extension into the lower thoracic and upper lumbar spine, who was started on chemotherapy with R-CHOP beginning November 14, 2016. She has since received 3 rounds of chemotherapy, the most recent on December 27. Together with her chemotherapy, she has received high dose prednisone with treatments. She became significantly neutropenic and has also been receiving G-CSF and prophylactic levofloxacin with each treatment. She presented to Dr. Kc's office on January 05 complaining of generalized weakness, difficulty ambulating, and was significantly hypotensive (BP 85/62) and tachycardic (HR 145-150). She was sent to the hospital where she was admitted. She has been afebrile during this time, and denies fevers or chills. Prior to admission, she was functional and had no difficulty ambulating or moving around the house. However, yesterday on hospital day 3, she woke up and noticed sudden severe weakness on dorsiflexion of both her feet. She states she has not had this before, except once a week ago when she was at a grocery store and noticed left foot weakness. She denies focal weakness elsewhere. She reports bilateral foot numbness which began in her toes bilaterally, about 1 week after starting chemotherapy in November, and has slowly progressed to her ankles bilaterally. She also reports some mild left thumb numbness over the last few days. She states her generalized weakness , hypotension, and tachycardia have since improved, but she continues to have bilateral foot weakness. She denies bowel or bladder incontinence, vision changes, hearing changes, slurred speech, facial droop, nausea, vomiting, diarrhea, chest pain, palpitations, shortness of breath, or edema. Review of Systems: Comprehensive review of systems conducted and was negative except for the pertinent positives listed above. PMH Past Medical History 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 C. Diff infection in 2004 Surgical History Left ankle open reduction and internal fixation. Allergies: Coded Allergies: No Known Allergies (Verified , 01/05/17) Family History Family History Noncontributory Social History Hx Alcohol Use: NoHx Substance Use: NoHx Tobacco Use: No Smoking Status: Unknown if Ever Smoker Living Arrangement: with Family Other Exam Vital Signs Vital Sign - Last Date Time Temp Pulse Resp B/P Pulse Ox O2 Delivery O2 Flow Rate FiO2 01/08/17 09:36 97 01/08/17 08:06 37.0 16 98/62 96 Room Air 01/05/17 13:39 2 Intake and Output 01/07/17 01/07/17 01/08/17 Cumulative From/Thru 15:00 23:00 07:00 01/05/17 09:18 - 01/08/17 05:27 Intake Total 2306 ml 1928 ml 95748 ml Output Total 900 ml 2200 ml 7350 ml Balance 1406 ml -272 ml 5017 ml Intake Oral 600 ml 750 ml 4140 ml IV Total 1706 ml 1178 ml 8227 ml Output Urine Total 900 ml 2200 ml 7350 ml # Voids 3 # Bowel Movements 1 0 3 Additional Information: General: Alert, Oriented X3, Cooperative, No acute distress Head: Normocephalic, atraumatic. External ears normal. Chemotherapy induced alopecia. Eyes: PERRLA, EOMI. Anicteric sclerae. Mouth: Mouth normal, Mucous membranes moist/pink Neck: Neck supple with full range of motion. Chest& Lungs: Clear to auscultation bilaterally with no crackles, wheezes, or rhonchi. Cardiovascular: Regular rate/rhythm, Normal S1, Normal S2, No murmurs/rubs/ gallops Abdomen: Non-tender, Non-distended, No masses, Normoactive bowel tones, Soft Musculoskeletal: Normal range of motion Extremities: No cyanosis/clubbing/edema bilaterally Neurological: Normal speech. Strength 4/4 bilateral upper and lower extremities except for 1/4 strength on dorsiflexion of bilateral feet, Cranial Nerves 2-12 Intact, Sensation Intact, Finger-Nose normal, patellar and achilles reflexes absent. Romberg and pronator drift normal. Lab and Diagnostics Result Diagram: 01/08/17 0444 01/08/17 0444 X-Rays, CTs and MRIs Date of Service: 01/07/17 1541 PROCEDURE: MRI LUMBAR SPINE WITH AND WITHOUT CONTRAST INDICATIONS: B-cell lymphoma. Lower extremity weakness and tingling, foot drop. Marrow: There is abnormal signal and enhancement involving L3 vertebral body with involvement of the right pedicle consistent with metastasis. No acute vertebral body compression fractures. No suspicious marrow enhancement. Spinal cord: Conus medullaris terminates at the L1 level. Visualized spinal cord demonstrates normal signal, without suspicious enhancement. Paraspinous soft tissues: Paravertebral soft tissue thickening and enhancement adjacent to L3. IMPRESSION: 1. Abnormal signal and enhancement in L3 vertebral body with associated paravertebral soft tissue thickening consistent with neoplasm such as B-cell lymphoma. 2. Degenerative changes in lumbar spine as described. 3. Mild central canal stenosis at L3-L4 and L4-L5. 4. No foraminal stenosis. Assessment & Plan Assessment Patient is a 61 year old female with history of a recent diagnosis of diffuse large B-cell lymphoma involving the paraspinal soft tissue and spleen with epidural extension into the lower thoracic and upper lumbar spine on chemotherapy with R-CHOP who presents with sudden bilateral foot drop beginning yesterday. Bilateral foot drop, acute The patient's foot drop is acute, as she had not had any symptoms before yesterday other than transient left foot weakness a week prior. This was not associated with any other acute changes, but she has had gradual progressive bilateral foot numbness since starting chemotherapy. This is suspicious for vincristine induced peripheral neuropathy, which is associated with sensory and motor neuropathy. Foot numbness, loss of deep tendon reflexes, and foot drop are common adverse effects of Vincristine. However, given the acute nature of her symptoms, this also raises concern for a subacute form of acute inflammatory demyelinating polyneuropathy (AIDP), which has been associated with B-cell lymphoma as a paraneoplastic syndrome. Spinal cord compression does not appear to be a large concern as MRI on 01/07/17 showed that lymphoma does not appear to have increased in size. Her bilateral foot numbness and left finger numbness is concerning, and an intracranial pathology should also be ruled out. We recommend MRI stroke protocol of the head. As there is concern for AIDP, we recommend a lumbar puncture before discharge. She should also have close follow- up with Dr. Rose after discharge for a nerve conduction study. Attempted to page Dr. Kc to discuss case. - Recommend lumbar puncture with cytology, cell count, protein, glucose. - Recommend brain MRI stroke protocol if LP is negative. - Close outpatient follow up with Dr. Rose. Problems: VTE Prophylaxis: SCDs VTE Mechanical Devices: Intermittant Pneumatic CD Resuscitation Status: CPR: Attempt Resuscitation Asad Sellers 5, 2017 16:36
[2017-01-08 17:13] VITALS: BP 109/68; PULSE 96; RESP 16; O2SAT 97
--- NOTE | 2017-01-08 18:39 | NUR ---
Shift note Pt's heart rate continues to be in the low 100's at rest. Heart rate increases to the 130's with activity, such as getting up the bathroom. She denies any pain or discomfort. O2 sats stable on RA. Denies SOB. Denies dizziness. Up independently in her room. Reports a decreased appetite which is baseline for this patient. Denies issues voiding. Continues to be unable to dorsiflex her feet, is able to plantarflex bilaterally. Continue to monitor.
[2017-01-08 20:59] VITALS: BP 124/71; PULSE 108; RESP 16; O2SAT 98
[2017-01-08] MEDS: LORazepam 0.5 mg Tablet PO SCH (21:05)
--- NOTE | 2017-01-08 21:36 | CCS NOTE ---
[facility] [address], [address] [address] MEDICAL ONCOLOGY OFFICE NOTE PATIENT: MAYCOL IRBY : 1955 MR#: [id number] DATE: 01/05/2017 JOB ID: [id number] DATE: 01/08/2017 HISTORY OF PRESENT ILLNESS: The patient was admitted due to hypotension and severe tachycardia without fever while having moderate neutropenia from the effect of last cycle of chemotherapy. She continued G-CSF injection, her neutropenia rapidly resolved. She was empirically covered with antibiotics, although there has not been any proof of any infectious issue. Atrial fibrillation was ruled out. I have contacted the hospital team and we discontinued the Granix yesterday. Her white count has improved from 1.1 to now 13. Hemoglobin is low with 7.3, platelet count 95, improved from 68. There is a left shift from G-CSF effect. Chemistry shows still normal electrolytes and LFTs. Blood cultures have remained negative. Infectious Disease has seen the patient and antibiotics have been now discontinued. She has noticed a bilateral foot drop over the past few days. This started in and form of tingling and numbness first in her feet. This is causing her some difficulty when she walks. IMAGING PROCEDURE: MRI of the lumbar spine was performed yesterday which read abnormal enhancement in the L3 vertebral body with associated paravertebral soft tissue thickening. I reviewed this with Dr. Velasco and it is important to notice that this is the area she has had known previous disease and it has been radiated in October. PHYSICAL EXAMINATION: On exam, she feels overall better. Her hypotension has improved. She has remained afebrile. Tachycardia improved with low-dose metoprolol. O2 sat 97% on room air. Lungs clear to auscultation. Heart regular. Abdomen is soft. I asked her to stand up from the bed, and she was able to do so and walk alongside the bed although there is clearly a bilateral foot drop, right-sided more than left, which makes her walking slightly insecure. ASSESSMENT/PLAN: A 61-year-old, pleasant lady with diffuse large B-cell lymphoma in the retroperitoneal and thoracolumbar spine area, highly symptomatic with pain at presentation in October treated with radiation therapy between T10 and L3 and ongoing chemotherapy with R-CHOP status post cycle #3. Her severe tachycardia with sinus tachycardia and hypotension was partially due to volume depletion. I discussed with the hospitalist team the possibility of adrenal insufficiency and requested a serum morning cortisol level that was drawn this morning, results pending. She has developed a bilateral foot drop which is likely toxicity of vincristine as a result of peripheral neuropathy. Her lumbar spine MRI shows no new changes compared to a baseline which I reviewed with Radiology. We will have to, unfortunately, hold the vincristine with subsequent cycles 4-6 of upcoming chemotherapy. A beta-indio has been started by the hospitalist team to control the tachycardia which is tolerated without significant drop of blood. There has not been any evidence of infection. Her neutropenia has resolved. I recommend physical therapy consult with ankle braces to support the foot drop and assist ambulation. Issues discussed with the hospitalist team. TIME SPENT WITH PATIENT: Approximately 1 hour and 5 minutes were spent in counseling and coordination of care.
[2017-01-08 23:52] VITALS: BP 130/85; PULSE 101; RESP 16; O2SAT 96
[2017-01-09 00:20] VITALS: PULSE 95
[2017-01-09] MEDS: 0.9% Sodium Chloride 1,000 ML IV SCH (05:18)
[2017-01-09 05:28] VITALS: BP 122/70; PULSE 94; RESP 18; O2SAT 95
--- NOTE | 2017-01-09 05:57 | NUR ---
Ambulation Pt up to BSC with SBA, reports feeling weak/unsteady on exertion and prefers staff be present when OOB. Reports numbness/tingling to BLE as per neuropathy; dorsiflexion deficit ongoing. VSS, tele SR 60s-70s with AVBI. NS infusing at 100mls/hr.
--- NOTE | 2017-01-09 06:02 | NUR ---
Temperature Pt had temperatures of 37.4-37.5C throughout shift, MD aware, no order changes made.
[2017-01-09 09:00] VITALS: BP 106/70; PULSE 103; RESP 16; O2SAT 97
[2017-01-09 09:28] VITALS: PULSE 103
--- NOTE | 2017-01-09 10:51 | PCM.PNMED ---
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 She has since received 3 rounds of chemotherapy, the most recent on December 27. She presented to Dr. Kc's office on January 05 complaining of generalized weakness, difficulty ambulating, and was significantly hypotensive and tachycardic. She was sent to the hospital where she was admitted. On hospital day 3, she woke up and noticed sudden severe weakness on dorsiflexion of both her feet, which was not present before. She reports bilateral foot numbness which began in her toes bilaterally , about 2 weeks after starting chemotherapy in November, and has slowly progressed to her ankles bilaterally. She also reports some mild left thumb numbness over the last few days. Today, she reports that her bilateral foot weakness, bilateral foot numbness, and left finger numbness have not changed. She denies bowel or bladder incontinence, vision changes, hearing changes, slurred speech, facial droop, nausea, vomiting, diarrhea, chest pain, palpitations, shortness of breath, or edema. Exam Vital Signs Vital Sign - Last Date Time Temp Pulse Resp B/P Pulse Ox O2 Delivery O2 Flow Rate FiO2 01/09/17 09:28 103 01/09/17 05:28 37.1 18 122/70 95 Room Air 01/05/17 13:39 2 Intake and Output 01/08/17 01/08/17 01/09/17 Cumulative From/Thru 15:00 23:00 07:00 01/05/17 09:18 - 01/09/17 06:57 Intake Total 2879 ml 33804 ml Output Total 3150 ml 99665 ml Balance -271 ml 4746 ml Intake Oral 600 ml 4740 ml IV Total 2279 ml 74101 ml Output Urine Total 3150 ml 49832 ml # Voids 3 # Bowel Movements 3 Exam General: Alert, Oriented X3, Cooperative, No acute distress Head: Normocephalic, atraumatic. External ears normal. Chemotherapy induced alopecia. Eyes: PERRLA, EOMI. Anicteric sclerae. Mouth: Mouth normal, Mucous membranes moist/pink Neck: Neck supple with full range of motion. Chest& Lungs: Clear to auscultation bilaterally with no crackles, wheezes, or rhonchi. Cardiovascular: Regular rate/rhythm, Normal S1, Normal S2, No murmurs/rubs/ gallops Abdomen: Non-tender, Non-distended, No masses, Normoactive bowel tones, Soft Musculoskeletal: Normal range of motion Extremities: No cyanosis/clubbing/edema bilaterally Neurological: Normal speech. Strength 4/4 bilateral upper and lower extremities except for 1/4 strength on dorsiflexion of bilateral feet, Cranial Nerves 2-12 Intact, Sensation Intact, Finger-Nose normal, patellar and achilles reflexes absent. Lab and Diagnostics Result Diagram: 01/08/1744301/08/[id number] X-Rays, CTs and MRIs Chest X-ray reviewed : No acute cardiopulmonary disease MRI reviewed personally . Report noted . 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 Bilateral foot drop, acute The patient's foot drop is acute, as she had not had any symptoms before yesterday other than transient left foot weakness a week prior. This was not associated with any other acute changes, but she has had gradual progressive bilateral foot numbness since starting chemotherapy. This is suspicious for vincristine induced peripheral neuropathy, which is associated with sensory and motor neuropathy. Foot numbness, loss of deep tendon reflexes, and foot drop are common adverse effects of Vincristine. However, given the acute nature of her symptoms, this also raises concern for a subacute form of acute inflammatory demyelinating polyneuropathy (AIDP), which has been associated with B-cell lymphoma as a paraneoplastic syndrome. Spinal cord compression does not appear to be a large concern as MRI on 01/07/17 showed that lymphoma does not appear to have increased in size. Discussed the case today with Dr. Kc, who states that this is common for vincristine-related peripheral neuropathy. We agreed that there is still some concern for AIDP, but her symptoms do not appear to be rapidly progressing at this time. Therefore, it would be reasonable to discharge her today with the caveat that she should return to the emergency department immediately for a lumbar puncture if she were to experience any progression in her lower extremity weakness or numbness. She should also have close follow-up with Dr. Rose after discharge for a nerve conduction study. Discussed this with the patient, who agrees with this plan. - Recommend lumbar puncture with cytology, cell count, protein, glucose if she were to return to the ED with progressing lower extremity symptoms - Recommend alpha-lipoic acid 300-600 mg daily - Close outpatient follow up with Dr. Rose for nerve conduction study and brain MRI. VTE Prophylaxis: SCDs VTE Mechanical Devices: Intermittant Pneumatic CD Resuscitation Status: CPR: Attempt Resuscitation Asad Sellers Jan 09, 2017 09:37
--- NOTE | 2017-01-09 11:56 | PCM.DIMED ---
Discharge Instructions Date of Service Jan 09, 2017 Dates of Hospitalization Jan 05, 2017 at 12:47 Discharge Diagnosis Discharge Diagnosis 1. Neutropenic, resolved 2. Hypotensive shock , resolved 3. Pancytopenia secondary to chemotherapy, improved . 4. Diffused B -cell Lymphoma, stable 5. Hyponatremia : Resolved 6. Lateral Foot drop, secondary to vincristine. Patient Instructions Patient Instructions Please see Dr. Kc within a week Fritz Lopez MD Jan 09, 2017 11:56
[2017-01-09] MEDS ORDERED: METO25TA99 PO (14:09)
--- NOTE | 2017-01-09 15:17 | NUR ---
Discharge Pt discharged at 1450. She was given discharge instructions and instructions for follow up care. She confirmed understanding of these instructions. She was given one prescription to take with her. She had an appointment made to follow up with her oncologist. She was given back all of her possessions at time of discharge. was present at the bedside. She was taken by wheelchair to the exit by unit staff.
--- NOTE | 2017-01-09 17:00 | NUR ---
Social Work Note: Discharge Data& Assessment: Per pt is medically improved and ready to discharge home via POV with [facility] PT to follow. Cherie Orozco is a 62 year old female admitted on 01/05/2017 for sepsis. Per pt is medically improved. SW received MD order to arrange home health PT for pt. MARNIE met with pt and pt at bedside to present HH list for preference. Pt preference is for [facility]. MARNIE faxed clinicals and spoke with Yessi from [facility] who accepted pt. Pt transporting pt home. Pt and pt deny any other needs. No other discharge needs identified. All updated and agreeable to plan. Plan: Per pt is medically improved and ready to discharge home via POV with [facility] PT to follow. Pt and pt deny any other needs. No other discharge needs identified. All updated and agreeable to plan. ELVIS Randle
--- NOTE | 2017-01-09 18:19 | CCS NOTE ---
[facility] [address], [address] [address] MEDICAL ONCOLOGY OFFICE NOTE PATIENT: MAYCOL IRBY : 1955 MR#: [id number] DATE: 01/05/2017 JOB ID: [id number] DATE: 01/09/2017 SUBJECTIVE: The patient has been clinically doing much better. She does have this bilateral foot drop which has not been increasing. Dr. Rose from Neurology saw her yesterday afternoon. Her neutropenia has resolved. EXAMINATION: She is on exam afebrile and able to lift her right and left leg without problems from the surface. The majority of her issues truly are peripheral with bilateral foot drop. She has no respiratory issues. She would like to go home and today is [birth year] birthday. ASSESSMENT AND PLAN: A 61-year-old lady with diffuse large B-cell lymphoma post third cycle of R-CHOP chemotherapy about 12 days ago as stated with tachycardia, hypotension, and in the setting of neutropenia without fever. There has been no evidence of an infection, but she was empirically covered with antibiotics until her counts recovered. She has reported this bilateral foot drop which started coming on over the past few days. Prior to that, it had started with tingling and numbness. The timing of this occurring and deteriorating about 10 days after the third cycle of chemotherapy is highly suggestive for vincristine-induced peripheral neuropathy. Dr. Rose of Neurology saw her yesterday and entertained the possibility of needing a lumbar puncture to rule out Guillain-Burnside syndrome. However, after my phone conversation with Dr. Rose this morning and review of the situation, we reached an agreement to forego this procedure as there is really alternative explanation for the patient's finding. The patient is very much in favor of that, but we have instructed her that if she is noticing a migration of her symptoms upward into her legs, then she needs to come right back to the emergency department and then be worked up for Guillain-Burnside but this appeared unlikely. I gave her a prescription for ankle-foot orthosis to support her ankles bilaterally. She does have a cane at home. I asked her about a walker, but her does not think that she needs one, and she definitely does not think so. With her next cycle of chemotherapy, we will need to hold vincristine, but will continue the rest of the chemotherapy component. She has an appointment with me in a few days around January [address] scan scheduled on January 15.
--- NOTE | 2017-01-10 07:47 | PCM.DC.MED ---
Discharge Summary Date of Service Jan 09, 2017 Dates of Hospitalization Date of Hospital Admission Jan 05, 2017 at 12:47 Date of Discharge: Jan 09, 2017 Providers: Admitting Physician: Wilmer Dominguez MD Primary Care Physician: Kojo Ferris MD Attending Physician: Wilmer Dominguez MD Diagnosis at Time of Discharge Diagnosis at Time of Discharge 1. Neutropenic, resolved 2. Hypotensive shock , resolved 3. Pancytopenia secondary to chemotherapy, improved . 4. Diffused B -cell Lymphoma, stable 5. Hyponatremia : Resolved 6. Lateral Foot drop, secondary to vincristine. Consultations Dr Ricks oncology Dr Rose, neurology Procedures XRay, CTs & MRIs Chest X-ray reviewed : No acute cardiopulmonary disease MRI reviewed personally . Report noted . Invasive Procedures None Brief History Neurology Consultation Patient is a 61 year old female with history of a recent diagnosis of diffuse large B-cell lymphoma involving the paraspinal soft tissue and spleen with epidural extension into the lower thoracic and upper lumbar spine, who was started on chemotherapy with R-CHOP beginning November 14, 2016. She has since received 3 rounds of chemotherapy, the most recent on December 27. Together with her chemotherapy, she has received high dose prednisone with treatments. She became significantly neutropenic and has also been receiving G-CSF and prophylactic levofloxacin with each treatment. She presented to Dr. Kc's office on January 05 complaining of generalized weakness, difficulty ambulating, and was significantly hypotensive (BP 85/62) and tachycardic (HR 145-150). She was sent to the hospital where she was admitted. She has been afebrile during this time, and denies fevers or chills. Prior to admission, she was functional and had no difficulty ambulating or moving around the house. However, yesterday on hospital day 3, she woke up and noticed sudden severe weakness on dorsiflexion of both her feet. She states she has not had this before, except once a week ago when she was at a grocery store and noticed left foot weakness. She denies focal weakness elsewhere. She reports bilateral foot numbness which began in her toes bilaterally, about 1 week after starting chemotherapy in November, and has slowly progressed to her ankles bilaterally. She also reports some mild left thumb numbness over the last few days. She states her generalized weakness , hypotension, and tachycardia have since improved, but she continues to have bilateral foot weakness. She denies bowel or bladder incontinence, vision changes, hearing changes, slurred speech, facial droop, nausea, vomiting, diarrhea, chest pain, palpitations, shortness of breath, or edema. Hospital Course 1. Neutropenic, POA. She was initially covered with antibiotics for possible infection but these were discontinued. She had recovery of her cell counts. No antibiotics will be given at time of discharge, this was discussed with her oncologist. 2. Hypotension, . This resolved with fluid resuscitation. She had no other problems. 3. Pancytopenia secondary to chemotherapy . H/H not at transfusion threshold and platelet count is int he 90 Will monitor closely this remained stable to improve throughout her hospitalization. 4. Diffused B -cell Lymphoma :Currently on chemotherapy Oncology consult and recommendation noted . 5. Hyponatremia : Resolved and this improved with fluid resuscitation. 6. Bilateral Foot drop. POA. Patient was seen by neurology. Ultimately the consensus was that this was related to her vincristine chemotherapy. She will be discharged with ankle brace prescription. There is a secondary concern for possible Guillain-Altamirano. She knows to present to the ER for ascending paralysis symptoms. Exam Vital Signs (Last) Date Time Temp Pulse Resp B/P Pulse Ox O2 Delivery O2 Flow Rate FiO2 01/09/17 09:28 103 01/09/17 09:00 36.8 16 106/70 97 01/09/17 05:28 Room Air 01/05/17 13:39 2 Exam Patient was seen and examined on the day of discharge Test 01/05/17 09:35 01/05/17 10:35 01/05/17 14:33 01/06/17 08:25 Prothrombin Time 10.8sec (8.1-12.5) Prothromb Time International Ratio 1.01ratio Activated Partial Thromboplast Time 26.1sec (22.8-33.0) Magnesium Level 2.0mg/dL (1.6-2.6) Troponin T 0.010ug/L (0.0-0.011) Lipase 14U/L (13-60) Urine Color Yellow (YELLOW) Urine Appearance Hazy (CLEAR,HAZY) Urine pH 7.0 (5.0-8.0) Urine Specific [place] 1.015 (1.003-1.035) Urine Protein 30mg/dL (NEG,TRACE) Urine Glucose (UA) Negativemg/dL (NEGATIVE) Urine Ketones Negativemg/dL (NEGATIVE) Urine Occult Blood Trace (NEGATIVE) Urine Nitrite Negative (NEGATIVE) Urine Bilirubin Negative (NEGATIVE) Urine Urobilinogen Normalmg/dL (NORMAL) Urine Leukocyte Esterase Negative (NEGATIVE) Urine RBC 0-2/hpf (0-2) Urine WBC 0-5/hpf (0-5) Urine Epithelial Cells Occasional/hpf (NONE-MOD) Urine Crystals Oxalic acid crystals (NONE Urine Bacteria None/hpf (NONE-FEW) Urine Hyaline Casts None/lpf (NONE) Urine Granular Casts None seen (NONE SEEN) Urine Waxy Casts None seen (NONE SEEN) Urine Red Blood Cell Casts None seen (NONE SEEN) Urine White Blood Cell Casts None seen (NONE SEEN) Urine Mucus Present (None Seen) Urine Trichomonas None seen (NONE SEEN) Urine Yeast None (NONE SEEN) Urinalysis Comment None Urine Culture Reflexed Not indicated Hold Calixto Top Tube Received (Received) Nucleated Red Blood Cells 2/100 WBC (0-24) Hematology Comments Lactic Acid Level 3.2mmol/L (0.4-2.0) Test 01/07/17 04:21 01/07/17 08:20 01/08/17 04:44 Total Bilirubin 0.3mg/dL (0.0-1.2) Aspartate Amino Transf (AST/SGOT) 12U/L (0-50) Alanine Aminotransferase (ALT/SGPT) 10U/L (0-32) Alkaline Phosphatase 57U/L (25-165) Total Protein 4.9g/dL (6.4-8.4) Albumin 3.1g/dL (3.4-5.0) Vancomycin Level Trough 8.3mcg/mL White Blood Count 13.2th/mm3 (3.8-10.1) Red Blood Count 2.43mil/mm3 (3.90-5.20) Hemoglobin 7.3g/dL (12.0-15.6) Hematocrit 22.6% (35.0-46.0) Mean Corpuscular Volume 93.0fL (81-100) Mean Corpuscular Hemoglobin 30.0pg (27.0-35.0) Mean Corpuscular Hemoglobin Concent 32.3% (32.0-37.0) Red Cell Distribution Width 16.8% (12.3-15.4) Platelet Count 95bil/L (150-400) Neutrophils (%) (Auto) 71% (40-74) Lymphocytes (%) (Auto) 6% (14-46) Monocytes (%) (Auto) 7% (4-12) Eosinophils (%) (Auto) 0% (0-5) Basophils (%) (Auto) 0% (0-3) Band Neutrophils % 14% (1-5) Metamyelocytes % 2% (0-0) Sodium Level 139mEq/L (134-144) Potassium Level 3.7mEq/L (3.5-5.2) Chloride Level 103mEq/L (97-108) Carbon Dioxide Level 26mmol/L (18-29) Blood Urea Nitrogen 3mg/dL (8-27) Creatinine 0.50mg/dL (0.57-1.00) Estimat Glomerular Filtration Rate 180mL/min (>59) Glucose Level 103mg/dL (60-99) Calcium Level 8.2mg/dL (8.5-10.1) Procalcitonin 0.14ng/mL (0.00-0.08) Cortisol 7.6ug/dL (.) Discharge Medications Discharge Medications Lorazepam (Ativan) 0.5 Mg Tablet 0.5-1 MG PO HS (Reported) Metoprolol Succinate ER (Metoprolol Succinate ER) 25 Mg Tab.er.24h 25 MG PO DAILY Prescribed by: AGUSTÍN WADE MD Prochlorperazine Maleate (Compazine) 10 Mg Tablet 10 MG PO q4hrs prn (Reported) As needed Acetaminophen (Acetaminophen) 325 Mg Tablet 650 MG PO Q4H PRN PRN Bone Pain ( Reported) Ibuprofen (Ibuprofen) 200 Mg Capsule 400 MG PO QID PRN PRN Bone pain (Reported) Ondansetron ODT (Ondansetron ODT) 8 Mg Tab.rapdis 8 MG PO Q4H PRN PRN For Nausea (Reported) oxyCODONE-Acetaminophen 5-325 mg (oxyCODONE-Acetaminophen 5-325 mg) 1 Each Tablet 1-2 TAB PO Q6H PRN PRN For Pain (Reported) Followup Plan Disposition: Home Patient Instructions Please see Dr. Kc within a week Time spent 45 minutes Agustín Wade MD Jan 10, 2017 07:47
[2017-01-16] MEDS ORDERED: PRE20 PO (12:34)
== END 2017-01-09 14:55 | disposition home health service (06) | DRG 809 ==
LOC: SED 09:15 → PCC 12:47
PROVIDERS: ADMIT Internal Medicine; ATTEND Internal Medicine
DX: D70.1 Agranulocytosis secondary to cancer chemotherapy (principal); C83.37 Diffuse large B-cell lymphoma, spleen; C83.33 Diffuse large B-cell lymphoma, intra-abdominal lymph nodes; C83.32 Diffuse large B-cell lymphoma, intrathoracic lymph nodes; M21.372 Foot drop, left foot; M21.371 Foot drop, right foot; G62.9 Polyneuropathy, unspecified; R50.81 Fever presenting with conditions classified elsewhere; T45.1X5A Adverse effect of antineoplastic and immunosuppressive drugs, initial encounter; D64.81 Anemia due to antineoplastic chemotherapy; D69.59 Other secondary thrombocytopenia; Y92.89 Other specified places as the place of occurrence of the external cause

== ENCOUNTER 2017-02-02 07:36 | Inpatient (IN) | payer OTHER ==
[~2017-02-02] VITALS: Ht 166.4 cm; Wt 62.8 kg
[2017-02-02] VITALS (9 sets, daily range): BP systolic 97–113; BP diastolic 61–80; PULSE 78–122; RESP 18–20; O2SAT 95–100
[~2017-02-02 07:36] MED LIST changes: +ACET325T51 PO; +IBUP200C PO; -LEVO500T79 PO; +LORA-302 PO; -LORA0.5T PO; +METO-272 PO; +ONDA8TAB10 PO; -ONDA8TAB7 PO; +PRD5T PO; -PRED5TAB PO; -prednison
--- NOTE | 2017-02-02 10:00 | NUR ---
Admission Pt admitted from Dr. Wallace's office via personal vehicle for chemo administration. Pt A&Ox3, LUCIANO, in Stable condition, VSS, Call to IV therapy re: need for port access, Oriented to room, Changed to gown - belongings in closet, at bedside. Pleasant and cooperative wit care. Addendum: 02/02/17 at 1500 by MOLLY PRADO RN with* care. No c/o pain. Care continues.
[2017-02-02] MEDS ORDERED: oxyCODONE-Acetamin 5-325 mg Tablet PO PRN ×2 (10:20→10:32)
[2017-02-02] MEDS ORDERED: 0.9% Sodium Chloride 250 ML ONE (11:22)
[2017-02-02] MEDS ORDERED: SODIUM CHLORIDE IV ONE ×3 (11:30)
[2017-02-02] MEDS ORDERED: RITUXIMAB IV ONE ×3 (11:30)
[2017-02-02] MEDS: 0.9% Sodium Chloride 1,000 ML IV SCH (11:41)
[2017-02-02] MEDS: Ondansetron 2 mg/mL 2 mL Inj IVPUSH PRN (11:41)
--- NOTE | 2017-02-02 13:28 | PCM.HPMED ---
Subjective Date of Service Feb 02, 2017 Primary Provider: Admitting Physician: Tanner Da Silva MD Primary Care Physician: Kojo Ferris MD Attending Physician: Tanner Da Silva MD Chief Complaint: Direct admission from oncology clinic for chemotherapy History of Present Illness: 62-year-old female with aggressive diffuse large B cell non-Hodgkin's lymphoma diagnosed in October 2016, received R-CHOP but poorly responded and developed peripheral neuropathy suspected from vincristine, autonomic neuropathy with sinus tachycardiac currently on BB. pt was sent from clinic for different chemo regimen based on poor prognostic indicator, planning for three cycles to Rituxan plus EPOCH again without vincristine, which will be given inpatient with close observation. VS stable, BP100/63, 88, 63, afebrile, 100% on RA, Review of Systems: Pertinent positives as noted in history of present illness. All other systems were reviewed and are negative Allergies Coded Allergies: No Known Allergies (Verified , 01/05/17) PMH MEDICATION: 1. Metoprolol extended release 50 mg once a day. 2. Odansetron p.r.n. 3. Prednisone 5 mg daily. 4. Compazine and Zofran p.r.n. PAST MEDICAL HISTORY: 1. No significant comorbidities. 2. History of previous C. difficile colitis in 2004. 3. Ankle repair surgery in 2003. SOCIAL HISTORY: She is . 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 Social History Hx Alcohol Use: No Hx Substance Use: No Hx Tobacco Use: No Smoking Status: Unknown if Ever Smoker Exam Vital Signs Vital Sign - Last Date Time Temp Pulse Resp B/P Pulse Ox O2 Delivery O2 Flow Rate FiO2 02/02/17 13:08 36.4 88 20 100/63 100 Room Air Exam NAD, comfortably laying down on the bed no JVD, MMM, no LAD regular tachycardic, nl s1, s2 no mrg CTAB, no w,c S,ND,NT,normoactive BS+ warm, no edema, pulses 2/2, bilateral dorsiflexiion 1/5 Assessment & Plan Acute, active Aggressive DLBCL, poor progsnotic feautures, POA, admitted for chemo tx, -appreciate recommendatio, Rituxan plus EPOCH again without vincristine, anticipate chemo through 02/06, d/c 02/07 -daily cbc, cmp, mg, replete lytes, G-CSF for neutropenia -zofran prn for n/v -ordered ppi, prednisone 100mg bid by -telemetry, will get baseline EKG Chronic, stable Sinus tachycardia, likely due to autonomic neuropathy, continue home BB peripheral neuropathy, from vincristine, remained stable on exam, dispo:Patient will be admitted with inpatient status with expectation of inpatient therapy for more than 2 midnights diet:general dvt ppx:LMWH Full code, verbally confirmed with patient Time spent 65 minutes Danisha Cueva MD Feb 02, 2017 13:28
--- NOTE | 2017-02-02 16:30 | NUR ---
RITUXUMAB Addendum: 02/02/17 at 1635 by MOLLY PRADO RN Delay in administration d/t having issues with blood return when attempting to premedicate prior to Rituximab. Call to IV Therapy for troubleshooting. Medications then given and time allowed for effect prior to admin of Rituximab. Received different tubing from pharmacy d/t speaks of filter tubing. Tubing not working. Call to pharmacy. Stated to use regular piggyback tube instead. Started infusion at 25ml/hr per pharmacy order and increased [id number] 25-50ml/hr d/t low but normal BPs. Pt tolerating, no issues with dose thus far. Intermittent BP checks with increase in rate.
[2017-02-02] MEDS: DOXORUBICIN IV SCH (17:42)
[2017-02-02] MEDS: SODIUM CHLORIDE 0.9% IV SCH (17:42)
[2017-02-02] MEDS: ETOPOSIDE IV SCH (17:42)
--- NOTE | 2017-02-02 18:23 | NUR ---
VEPESID - day 1 Pt Rituximab infusion completed and pharmacy aware of the need for Vepesid dose. Arrived just prior to 1739, double checked orders with benefits analyst, Coco Degroot. Blood return checked - present (does continue to require ~2x NS 10cc flushes to get brisk return). CareNotes provided on combination medication - first time receiving Doxorubicin. Educated on s/sx to watch for. VSS -checked prior to admin and 15minutes after start time. Pt tolerating without issue thus far. Vepesid infusing at 21ml/hr continuous with NS at 75ml/hr. Educated pt/family on chemotherapy precautions and for bathroom to remain pt personal use only. Family present in room, watching movie together.
[2017-02-02] MEDS: predniSONE 20 mg Tablet PO SCH (20:33)
--- NOTE | 2017-02-02 20:50 | NUR ---
Chemo Infusing 21 ml/hr. VSS Denies nausea or pain. PAC patient with brisk blood return. Grandchildren at bedside visiting.
[2017-02-02] MEDS: LORazepam 1 mg Tablet PO PRN (23:46)
[2017-02-03] VITALS (8 sets, daily range): BP systolic 102–114; BP diastolic 66–73; PULSE 80–96; RESP 16–18; O2SAT 94–99
[2017-02-03 06:51] LABS: BASOPHILS % (AUTO) 0.3 % (0-3); EOSINOPHILS % (AUTO) 0 % (0-5); MONOCYTES % (AUTO) 2.3 % (4-12); Mean Corpuscular Hemoglobin 31.2 pg (27.0-35.0); Mean Corpuscular Volume 100.3 fL (81-100); Platelet Count 183 bil/L (150-400)
[2017-02-03 07:09] LABS: Magnesium 1.9 mg/dL (1.6-2.6); Phosphorus 3.4 mg/dL (2.5-4.9)
[2017-02-03] MEDS: predniSONE 20 mg Tablet PO SCH ×2 (09:00→20:08)
[2017-02-03] MEDS: Trimethoprim-Sulfa 160 mg-800 mg Tablet PO SCH (09:00)
[2017-02-03] MEDS: MeTOProlol XL 50 mg ER24 Tablet PO SCH (09:00)
[2017-02-03] MEDS ORDERED: HepLOK Flush 100 unit/mL 5 mL Inj IVFLUSH PRN (11:50)
[2017-02-03] MEDS: 0.9% Sodium Chloride 250 ML IV SCH (11:50)
[2017-02-03] MEDS ORDERED: Sodium Chloride LOK Flush 10 mL Syringe IVFLUSH PRN ×2 (11:50)
[2017-02-03] MEDS ORDERED: DXM4T PO (12:21)
--- NOTE | 2017-02-03 13:39 | PCM.PNMED ---
Subjective Date of Service Feb 03, 2017 Subjective She is seen today to follow-up her non-Hodgkin's lymphoma and oncologic infusion. This is day 2 of 4. The CMP is negative with a glucose of 162 and a hemoglobin of 9.3. Exam Vital Signs Vital Sign - Last Date Time Temp Pulse Resp B/P Pulse Ox O2 Delivery O2 Flow Rate FiO2 02/03/17 08:28 86 02/03/17 08:11 36.7 18 114/72 98 Room Air Intake and Output 02/02/17 02/02/17 02/03/17 Cumulative From/Thru 15:00 23:00 07:00 02/02/17 10:15 - 02/03/17 06:49 Intake Total 1379 ml 1000 ml 2379 ml Output Total 1400 ml 2100 ml 3500 ml Balance -21 ml -1100 ml -1121 ml Intake Oral 800 ml 200 ml 1000 ml IV Total 579 ml 800 ml 1379 ml Output Urine Total 1400 ml 2100 ml 3500 ml # Bowel Movements 1 0 1 Exam She greets me with a very weak smile. She is alert and oriented 3. She has no apparent distress. Heart is regular rate and rhythm without murmur. Lungs are clear to auscultation bilaterally Abdomen soft, nontender, no organomegaly. Extremities have no ankle edema. Lab and Diagnostics Result Diagram: 02/03/17 0544 02/03/17 0544 Assessment & Plan Acute, active Aggressive DLBCL, poor progsnotic feautures, POA, admitted for chemo tx, -appreciate recommendatio, Rituxan plus EPOCH again without vincristine, anticipate chemo through 02/06, d/c 02/07 -daily cbc, cmp, mg, replete lytes, G-CSF for neutropenia -zofran prn for n/v -ordered ppi, prednisone 100mg bid by -Continue telemetry. Chronic, stable Sinus tachycardia, likely due to autonomic neuropathy, continue home BB peripheral neuropathy, from vincristine, remains stable on exam, dispo:Patient has been admitted with inpatient status with expectation of inpatient therapy for more than 2 midnights diet:general dvt ppx:LMWH Full code, verbally confirmed with patient VTE Mechanical Devices: Intermittant Pneumatic CD Korin Eduardo MD Feb 03, 2017 10:03
--- NOTE | 2017-02-03 17:39 | NUR ---
BG Pt on 100mg PO Prednisone BID. Pt placed on BG check BIDAC. With breakfast, BG 141. At dinner, BG 224. MD notified. Care continues.
[2017-02-03] MEDS ORDERED: Glucose 40% Oral Gel 15 Gm Tube PO PRN (17:50)
--- NOTE | 2017-02-03 18:37 | NUR ---
Chemo Delay Pt with chemo that continues to run at 21ml/hr. Now infusing >24hrs with ~1hr remaining. Call to pharmacy re: possibility of increasing rate, stated to keep at rate until bag infused. meat cooler made aware of delay of Day 2 dose d/t possibility of pushing into the overnight caregiver for hanging. Continue to monitor. 2nd dose ready and waiting to be hung.
[2017-02-03] MEDS: Ondansetron 2 mg/mL 2 mL Inj IVPUSH PRN (19:33)
[2017-02-03] MEDS: ETOPOSIDE IV SCH (19:54)
[2017-02-03] MEDS: DOXORUBICIN IV SCH (19:54)
[2017-02-03] MEDS: SODIUM CHLORIDE 0.9% IV SCH (19:54)
[2017-02-03] MEDS: 0.9% Sodium Chloride 1,000 ML IV SCH (20:08)
[2017-02-03] MEDS ORDERED: diphenhydrAMINE 25 mg Capsule PO ONE (20:40)
[2017-02-03] MEDS ORDERED: Insulin GLARgine 100 Unit/mL Syringe SUBQ SCH (21:00)
--- NOTE | 2017-02-03 21:24 | NUR ---
Chemo VSS, denies pain or nausea. Tele; sinus Hr 85. c/o Right foot itching that is unrelieved by light scratching. One time order for Benedryl 25mg PO received and given. Reports itching resolved. PAC with brisk blood return an site WNL's; no erythemia or drainage. Premedicated with Zofran 16mg's as per order. Chemo double check performed and then started.
[2017-02-03] MEDS: Insulin LISPRO 300 Unit/3 mL Inj SUBQ SCH (22:00)
[2017-02-03] MEDS: LORazepam 1 mg Tablet PO PRN (22:15)
[2017-02-04] VITALS (10 sets, daily range): BP systolic 96–120; BP diastolic 59–77; PULSE 63–83; RESP 16–18; O2SAT 95–100
[2017-02-04] MEDS: 0.9% Sodium Chloride 1,000 ML IV SCH ×3 (02:20→21:59)
[2017-02-04] MEDS: Insulin LISPRO 300 Unit/3 mL Inj SUBQ SCH ×4 (08:00→22:00)
[2017-02-04 08:26] LABS: BASOPHILS % (AUTO) 0 % (0-3); EOSINOPHILS % (AUTO) 0.2 % (0-5); MONOCYTES % (AUTO) 1.5 % (4-12); Mean Corpuscular Hemoglobin 31.6 pg (27.0-35.0); Mean Corpuscular Volume 101.1 fL (81-100); NEUTROPHILS % (AUTO) 92.4 % (40-74); Platelet Count 183 bil/L (150-400)
[2017-02-04] MEDS: Trimethoprim-Sulfa 160 mg-800 mg Tablet PO SCH (09:25)
[2017-02-04] MEDS: MeTOProlol XL 50 mg ER24 Tablet PO SCH (09:25)
[2017-02-04] MEDS: predniSONE 20 mg Tablet PO SCH ×2 (09:25→20:15)
[2017-02-04] MEDS: 0.9% Sodium Chloride 250 ML IV SCH (09:31)
--- NOTE | 2017-02-04 13:00 | NUR ---
BG/Education Breakfast B, did not require insulin. Lunchtime B. Discussed with pt re: insulin administration d/t elevated BG. Care Notes offered as well, pt stated "not particularly" wanting to take/read handout. Pt educated on the 5 rights and MOA of medication. Pt stated wanting to wait and recheck BG at dinner time. Pt made aware of s/sx to call for d/t hyperglycemia and verbally repeated back s/sx to watch for. Call light in reach. Care continues.
--- NOTE | 2017-02-04 13:15 | NUR ---
Chemo: Rate Increase Per pharmacy orders, chemotherapy rate set to 21ml/hr. Portcath patent with brisk blood return. D/t overfill and increase in infusion time cause delay with 02/03/[address] Kc present this shift and verbally stated okay to increase rate to get patient back on track with timing. Stated he would also include this in his progress note. Call to pharmacy - made aware. Rate increased to 32ml/hr at 1220; expect bag to be completed by ~1730. Pt and family aware of the rate increase. Pt tolerating - no issues. Care continues.
--- NOTE | 2017-02-04 13:18 | PCM.PNMED ---
Subjective Date of Service Feb 04, 2017 Subjective She is seen today to follow-up her non-Hodgkin lymphoma chemotherapy treatment. Her hematological parameters and metabolic parameters are holding up. Yesterday her blood sugars were above 200 but her insulin was held in the evening because of blood sugar in the 130s. She continues to basically be in the mid to high 100s most of the time. This is directly attributal to her high- dose steroid therapy in the context of the chemotherapy. She has no new complaints. Exam Vital Signs Vital Sign - Last Date Time Temp Pulse Resp B/P Pulse Ox O2 Delivery O2 Flow Rate FiO2 02/04/17 09:32 36.6 79 18 96/61 98 Room Air Intake and Output 02/03/17 02/03/17 02/04/17 Cumulative From/Thru 15:00 23:00 07:00 02/02/17 10:15 - 02/04/17 05:24 Intake Total 2455 ml 1873 ml 6707 ml Output Total 1850 ml 1350 ml 6700 ml Balance 605 ml 523 ml 7 ml Intake Oral 1300 ml 1000 ml 3300 ml IV Total 1155 ml 873 ml 3407 ml Output Urine Total 1850 ml 1350 ml 6700 ml # Bowel Movements 0 1 Exam She is alert and oriented, in no apparent distress Heart is regular rate and rhythm without murmur Lungs are clear to auscultation bilaterally Extremities no ankle edema. IVs and Medications Medications Reviewed: Medications were reviewed in detail Lab and Diagnostics Result Diagram: 02/04/17 0110 02/04/17 0110 Assessment & Plan Aggressive DLBCL/non-Hodgkin's lymphoma, poor prognostic features, POA, admitted for chemo tx, -Orders per , Rituxan plus EPOCH again without vincristine, anticipate chemo through 02/06, d/c 02/07 -daily cbc, cmp, mg, replete lytes, G-CSF for neutropenia -zofran prn for n/v -ordered ppi, prednisone 100mg bid by -Continue telemetry. -Added SS Humalog and daily Lantus yesterday. Chronic, stable Sinus tachycardia, likely due to autonomic neuropathy, continue home BB peripheral neuropathy, from vincristine, remains stable on exam, dispo: Home on February 07. diet:general dvt ppx:LMWH Full code, verbally confirmed with patient Pain Evaluation: Adequate Pain Control VTE Mechanical Devices: Intermittant Pneumatic CD Resuscitation Status: CPR: Attempt Resuscitation Korin Eduardo MD Feb 04, 2017 10:10
--- NOTE | 2017-02-04 13:27 | CCS NOTE ---
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 For details, please refer to my note of February 02, 2017 leading to the admission. She has started Rituxan that day and then started the four day infusion of etoposide and doxorubicin in the afternoon of February 02. She has finished the 1st 24 hour bag and started yesterday the 2nd bag of day 2 with a few hours delay, approximately 3 hours. She is ambulatory in the hallway and has had so far no issues. I spoke also with her nurse yesterday and today. She has been on prednisone 100 mg twice daily which is the very high dose given with this protocol. She denies any significant agitation or insomnia issues with this steroid amount. Family is present. PHYSICAL EXAMINATION: On exam, her vitals are stable. Her blood pressure chronically is rather low. Heart rate has actually improved in the 80s instead of around 110 most of the time. She shows no ill effects and no edema. LABORATORY: White count is 6.6, hemoglobin 8.7, platelets 183. Chemistry shows normal electrolytes, creatinine 0.56, normal LFTs. ASSESSMENT AND PLAN: A 62-year-old lady with aggressive diffuse large B-cell lymphoma. Details summarized in my office note of February 02, 2017. She has had three cycles of RCHOP and is now switched to intensified treatment on one hand, and on the other hand compensate for the discontinuation of vincristine that we have to do because of excessive neuropathy toxicity. She is finishing day two of this regimen. She has tolerated it so far well, with infusional EPOCH without vincristine. I spoke with her nurse and stated that she may increase the infusion rate of the doxorubicin and etoposide combination infusion to catch up for the time that was lost yesterday and avoid delays. There will be no clinical implication by reducing the infusion interval from 24 hours to let us say 21 hours to maintain her on schedule. We want to avoid that the patient finishes the cyclophosphamide too late on Sunday for discharge. She would start then as an outpatient the G-CSF with Granix daily, giving herself 10 daily injections starting 24 hours after the end of chemotherapy, and the is very familiar with that.
--- NOTE | 2017-02-04 16:09 | NUR ---
Social Work: Screening D:EMR reviewed. Pt is a 61 y/o female admitted for diffusion of large B cell lymphoma/chemotherapy per H&P. Insurance is [facility]. PCP is Sarah Mahajan MD. Pt followed by Dr. Wallace from Oncology. NOK is pt's spouse Horace Orozco [phone]. DPOA/advanced directives not completed - information provided to patient. Readmit score is a 2. Pt will be receiving 4 days of chemo and likely to discharge 7/4 after last chemo treatment. Pt's spouse likely to provide transport home via POV when pt is medically stable. SW screened pt's EMR and worked with medical team in AM multi-disciplinary rounds to determine pt does not have any SW discharge needs at this time. SW does not anticipate any needs at time of discharge but will continue to follow if needs arise. A: Pt who is independent at baseline. P: Pt's spouse likely to provide transport home via POV when pt is medically stable. SW screened pt's EMR and worked with medical team in AM multi-disciplinary rounds to determine pt does not have any SW discharge needs at this time. SW does not anticipate any needs at time of discharge but will continue to follow if needs arise. ELVIS Kaufman
[2017-02-04] MEDS: Ondansetron 2 mg/mL 2 mL Inj IVPUSH PRN (17:53)
[2017-02-04] MEDS: ETOPOSIDE IV SCH (17:56)
[2017-02-04] MEDS: DOXORUBICIN IV SCH (17:56)
[2017-02-04] MEDS: SODIUM CHLORIDE 0.9% IV SCH (17:56)
--- NOTE | 2017-02-04 19:22 | NUR ---
Chemo - dose 3 of Etoposide/Doxorubicin - after increasing rate in attempt to get pt back on track time-junior, Dose 3 of 4 of this medication hung at 1800. Upon giving report to RN taking over care arts and humanities council director, Mariana Crow and reading Dr. Kc's note together. Together infusion increased from 21ml/hr per pharmacy instructions to 22.6ml/hr at change of shift in attempt to have pt complete Etoposide/Doxorubicin at ~1500 on 02/05/17 to make time for final medication on 02/06/17 which is to take an hour to infuse. (Pt previously increased to 32ml/hr earlier this shift in attempt to make up time; pt tolerated without issue.) Hopeful for pt to discharge earlier rather later on 02/06/17. Care continues.
[2017-02-04] MEDS ORDERED: Insulin GLARgine 100 Unit/mL Syringe SUBQ SCH (21:00)
[2017-02-04] MEDS: LORazepam 1 mg Tablet PO PRN (21:53)
[2017-02-05] VITALS (9 sets, daily range): BP systolic 103–124; BP diastolic 61–72; PULSE 52–77; RESP 16–18; O2SAT 94–99
--- NOTE | 2017-02-05 06:02 | NUR ---
Activity Pt requested Ativan at bedtime to help her sleep. Pt reported being able to sleep overnight, denied pain or nausea. Chemo infusing at 22.6ml/hr. BG at bedtime was 137 and pt declined to have scheduled Lantus. Pt up to BSC to void. On tele, SR 60-70s.
[2017-02-05 06:37] LABS: BASOPHILS % (AUTO) 0 % (0-3); EOSINOPHILS % (AUTO) 0 % (0-5); MONOCYTES % (AUTO) 2.1 % (4-12); Mean Corpuscular Hemoglobin 31.3 pg (27.0-35.0); Mean Corpuscular Volume 98.9 fL (81-100); NEUTROPHILS % (AUTO) 93.7 % (40-74); Platelet Count 176 bil/L (150-400)
[2017-02-05] MEDS: Trimethoprim-Sulfa 160 mg-800 mg Tablet PO SCH (09:15)
[2017-02-05] MEDS: MeTOProlol XL 50 mg ER24 Tablet PO SCH (09:15)
[2017-02-05] MEDS: predniSONE 20 mg Tablet PO SCH ×2 (09:16→20:10)
--- NOTE | 2017-02-05 10:32 | PCM.PNMED ---
Subjective Date of Service Feb 05, 2017 Subjective Etoposide/Doxorubicin is running until 3pm pt tolerating well, had one episode of "spiting out flegm" with gagging but resolved. denied n/v in the morning, no diarrhea, tolerating diet. no sob, chest pain, labs are stable. HD stable afebrile Exam Vital Signs Vital Sign - Last Date Time Temp Pulse Resp B/P Pulse Ox O2 Delivery O2 Flow Rate FiO2 02/05/17 10:26 60 02/05/17 09:14 111/64 02/05/17 06:27 36.6 16 94 Room Air Intake and Output 02/04/17 02/04/17 02/05/17 Cumulative From/Thru 15:00 23:00 07:00 02/02/17 10:15 - 02/05/17 06:27 Intake Total 2650 ml 1816 ml 43045 ml Output Total 1300 ml 1500 ml 9500 ml Balance 1350 ml 316 ml 1673 ml Intake Oral 1320 ml 700 ml 5320 ml IV Total 1330 ml 1116 ml 5853 ml Output Urine Total 1300 ml 1500 ml 9500 ml # Bowel Movements 0 1 Exam NAD, comfortably laying down on the bed no JVD, MMM, no LAD RRR, nl s1, s2 no mrg CTAB, no w,c S,ND,NT,normoactive BS+ warm, no edema, pulses 2/2, bilateral dorsiflexiion 1/5 IVs and Medications Medications Reviewed: Medications were reviewed in detail Lab and Diagnostics Result Diagram: 02/05/17 0532 02/05/17 0532 Assessment & Plan Aggressive DLBCL/non-Hodgkin's lymphoma, poor prognostic features, POA, admitted for chemo tx, -pt remained clinically stable, no neutropenia, afebrile. minimal sx. -continue Chemo per schedule per , Rituxan plus EPOCH again without vincristine, anticipate chemo through 02/06, d/c 02/07 -daily cbc, cmp, mg, replete lytes, G-CSF for neutropenia -zofran prn for n/v -ordered ppi, prednisone 100mg bid by -Continue telemetry. mild hyperglycemia, glc 160s, in target, no hx of DM -continue Lantus 5unit, stop lisproSS, not indicated, glc is in goal Chronic, stable Sinus tachycardia, likely due to autonomic neuropathy, continue home BB peripheral neuropathy, from vincristine, remains stable on exam, dispo: Home on February 07. diet:general dvt ppx:LMWH Full code, verbally confirmed with patient VTE Mechanical Devices: Intermittant Pneumatic CD Resuscitation Status: CPR: Attempt Resuscitation Time spent 35min Danisha Cueva MD Feb 05, 2017 10:32
[2017-02-05] MEDS: 0.9% Sodium Chloride 250 ML IV SCH (11:36)
[2017-02-05] MEDS: 0.9% Sodium Chloride 1,000 ML IV SCH (11:36)
[2017-02-05] MEDS: Ondansetron 2 mg/mL 2 mL Inj IVPUSH PRN ×2 (14:51→17:29)
--- NOTE | 2017-02-05 14:56 | NUR ---
Nausea Patient reported nausea. 8mg ondansetron given. Denies pain at this time. Patient independent in room. Repositions self for comfort. Call light and tray table within reach. Will continue to monitor patient hourly.
[2017-02-05] MEDS: SODIUM CHLORIDE 0.9% IV SCH (17:32)
[2017-02-05] MEDS: ETOPOSIDE IV SCH (17:32)
[2017-02-05] MEDS: DOXORUBICIN IV SCH (17:32)
--- NOTE | 2017-02-05 17:47 | NUR ---
Chemo - Dose 4 Etoposide/Doxorubcin started. VSS. Blood return. Rate at 22.6mL/hr for completion of chemo approximately 1500 on 02/06/2017 for last chemo, which runs approximately 1 hour, and discharge home after chemo is finished. Patient independent in room. Patient repositions self for comfort. Call light and tray table within reach. Will continue to monitor patient hourly. Addendum: 02/05/17 at 1835 by BATSHEVA GARCES RN Patient nauseated and vomiting. 10mg compazine given. Patient stated feeling better. Will continue care.
--- NOTE | 2017-02-05 20:20 | CCS NOTE ---
[facility] [address], [address] [address] MEDICAL ONCOLOGY OFFICE NOTE PATIENT: MAYCOL IRBY : 1955 MR#: [id number] DATE: 02/02/2017 JOB ID: [id number] DATE: 02/05/2017 The patient is stable with her at bedside. She has been ambulating in the hallway. In discussion with her nurse they were able to increase the infusion rate and she is now finishing the third day bag of infusional etoposide and Adriamycin. Her labs that show a slight worsening of anemia but not severe enough to require transfusion yet. Renal function and liver enzymes stable. PHYSICAL EXAMINATION: She has now much less tachycardia, blood pressure 100/50, heart rate regular with pulse in the 70s instead of usually around 120. Extremities: Show slight puffiness with trace edema. Abdomen soft. No thrush. ASSESSMENT AND PLAN: A 62-year-old lady with aggressive lymphoma undergoing first cycle of Rituxan plus EPOCH chemotherapy after finishing three cycles of R-CHOP. She is currently finishing day three of the infusion and is going to start the 4th infusional bag of etoposide and doxorubicin in an hour or so. She will finish that tomorrow evening. I anticipate that she will receive cyclophosphamide on the morning of February 07 and she could be then discharged that day. I will see her on February 07. So far she is doing quite well. We discussed the prednisone taper given the very high dose currently being received and dropped to very low dose of 5 mg might be associated with symptoms of asthenia. Therefore, she is to take for two days 20 mg daily before cutting down to 10 mg in the outpatient setting.
[2017-02-05] MEDS: LORazepam 1 mg Tablet PO PRN (22:10)
[2017-02-06] MEDS: 0.9% Sodium Chloride 1,000 ML IV SCH ×2 (01:44→07:40)
[2017-02-06 04:53] VITALS: BP 117/67; PULSE 67; RESP 16; O2SAT 96
--- NOTE | 2017-02-06 05:21 | NUR ---
Activity Pt chemo continues at 22.6 ml/hr, NS running at 75ml/hr through port. Port with brisk blood return when flushed. Pt on Tele SR 50-60s. Ativan given at bedtime to help with anxiety and nausea. Pt denies nausea this morning.
[2017-02-06 07:08] LABS: BASOPHILS % (AUTO) 0 % (0-3); EOSINOPHILS % (AUTO) 0 % (0-5); MONOCYTES % (AUTO) 2.1 % (4-12); Mean Corpuscular Hemoglobin 31.1 pg (27.0-35.0); Mean Corpuscular Volume 97.9 fL (81-100); NEUTROPHILS % (AUTO) 94.1 % (40-74); Platelet Count 162 bil/L (150-400)
[2017-02-06 08:47] VITALS: BP 113/66; PULSE 54; RESP 18; O2SAT 96
[2017-02-06] MEDS: Trimethoprim-Sulfa 160 mg-800 mg Tablet PO SCH (09:01)
[2017-02-06] MEDS: MeTOProlol XL 50 mg ER24 Tablet PO SCH (09:01)
[2017-02-06] MEDS: predniSONE 20 mg Tablet PO SCH (09:01)
[2017-02-06] MEDS: 0.9% Sodium Chloride 250 ML IV SCH (09:03)
[2017-02-06 10:22] VITALS: PULSE 89
[2017-02-06] MEDS ORDERED: Palonosetron 0.05 mg/mL 5 mL Inj IV PRN (11:00)
[2017-02-06] MEDS ORDERED: CYCLOPHOSPHAMIDE IV ONE (12:30)
[2017-02-06] MEDS ORDERED: SODIUM CHLORIDE 0.9% IV ONE (12:30)
[2017-02-06 13:36] VITALS: BP 117/69; PULSE 68; RESP 18; O2SAT 100
[2017-02-06] MEDS: Ondansetron 2 mg/mL 2 mL Inj IVPUSH PRN ×2 (16:25→19:52)
[2017-02-06 17:54] VITALS: BP 128/74; PULSE 63; RESP 15; O2SAT 97
--- NOTE | 2017-02-06 18:06 | PCM.DIMED ---
Discharge Instructions Date of Service Feb 06, 2017 Dates of Hospitalization Feb 02, 2017 at 09:50 Discharge Diagnosis Discharge Diagnosis chemotherapy for diffuse large B cell lymphoma Medication Instructions Additional med instructions Please note that prednisone taper is advised. take 20mg for 2days then 10mg for 2days then take 5mg afterwards Patient Instructions Patient Instructions You were hospitalized for chemotherapy for lymphoma. You tolerated well without complication. Follow-up plan Please follow up with as scheduled Follow-up Provider: Kojo Ferris MD Follow-up with PCP in: 1 week Danisha Cueva MD Feb 06, 2017 18:06
[2017-02-06 18:52] VITALS: BP 120/71; PULSE 74; RESP 17; O2SAT 96
--- NOTE | 2017-02-06 20:01 | NUR ---
CHEMO 5 IV de-accessed Chemo tolerated well. Some nausea at times but this has been the same daily. Denies any CP, SOB, or pain at this time. IV heparin locked and de-accessed by STRIP CUTTER. Care continues
--- NOTE | 2017-02-06 20:43 | NUR ---
Discharge Pt given discharge instructions, follow up appointment information and expressed understanding. Pt left at 2024 via wheelchair with and all belongings accounted for.
--- NOTE | 2017-02-07 13:21 | PCM.PNMED ---
Subjective Date of Service Feb 06, 2017 Subjective pt is doing well with chemo, denied any complaints Exam Vital Signs Vital Sign - Last Date Time Temp Pulse Resp B/P Pulse Ox O2 Delivery O2 Flow Rate FiO2 02/06/17 08:47 36.3 54 18 113/66 96 Room Air Intake and Output 02/05/17 02/05/17 02/06/17 Cumulative From/Thru 15:00 23:00 07:00 02/02/17 10:15 - 02/06/17 05:12 Intake Total 2643 ml 1631 ml 79189 ml Output Total 1900 ml 1100 ml 51897 ml Balance 743 ml 531 ml 2947 ml Intake Oral 1400 ml 800 ml 7520 ml IV Total 1243 ml 831 ml 7927 ml Output Urine Total 1900 ml 1100 ml 83093 ml # Bowel Movements 0 0 1 Exam NAD, comfortably laying down on the bed no JVD, MMM, no LAD RRR, nl s1, s2 no mrg CTAB, no w,c S,ND,NT,normoactive BS+ warm, no edema, pulses 2/2, bilateral dorsiflexiion 1/5 IVs and Medications Medications Reviewed: Medications were reviewed in detail Lab and Diagnostics Result Diagram: 02/06/1761302/06/17613 Assessment & Plan Aggressive DLBCL/non-Hodgkin's lymphoma, poor prognostic features, POA, admitted for chemo tx, -pt remained clinically stable, no neutropenia, afebrile. minimal sx. -continue Chemo per schedule per , Rituxan plus EPOCH again without vincristine, anticipate chemo through 02/06, d/c 02/07 -daily cbc, cmp, mg, replete lytes, G-CSF for neutropenia -zofran prn for n/v -ordered ppi, prednisone 100mg bid by -Continue telemetry. mild hyperglycemia, glc 160s, in target, no hx of DM -continue Lantus 5unit, stop lisproSS, not indicated, glc is in goal Chronic, stable Sinus tachycardia, likely due to autonomic neuropathy, continue home BB peripheral neuropathy, from vincristine, remains stable on exam, dispo: Home on February 07. diet:general dvt ppx:LMWH Full code, verbally confirmed with patient VTE Mechanical Devices: Intermittant Pneumatic CD Resuscitation Status: CPR: Attempt Resuscitation Time spent 35min Danisha Cueva MD Feb 06, 2017 09:36
--- NOTE | 2017-02-07 13:46 | PCM.DC.MED ---
Discharge Summary Date of Service Feb 06, 2017 Dates of Hospitalization Date of Hospital Admission Feb 02, 2017 at 09:50 Date of Discharge: Feb 06, 2017 Providers: Admitting Physician: Danisha Cueva MD Primary Care Physician: Sarah Mahajan MD Attending Physician: Danisha Cueva MD Diagnosis at Time of Discharge Diagnosis at Time of Discharge Chemotherapy for diffuse large B cell lymphoma Consultations oncology Brief History HPI obtained by on 02/02 62-year-old female with aggressive diffuse large B cell non-Hodgkin's lymphoma diagnosed in October 2016, received R-CHOP but poorly responded and developed peripheral neuropathy suspected from vincristine, autonomic neuropathy with sinus tachycardiac currently on BB. pt was sent from Dr.Jafari easton for different chemo regimen based on poor prognostic indicator, planning for three cycles to Rituxan plus EPOCH again without vincristine, which will be given inpatient with close observation. VS stable, BP100/63, 88, 63, afebrile, 100% on RA, Hospital Course acute dx Aggressive DLBCL/non-Hodgkin's lymphoma, poor prognostic features pt was admitted for chemo tx, Rituxan plus EPOCH again without vincristine, finished chemo on 02/06, remained stable, tolerated well, d/nan in stable condition. mild hyperglycemia, glc 160s, in target, no hx of DM, tried Lantus 5unit Chronic dx Sinus tachycardia, likely due to autonomic neuropathy, continue home BB peripheral neuropathy, from vincristine, remains stable on exam, Exam Vital Signs (Last) Date Time Temp Pulse Resp B/P Pulse Ox O2 Delivery O2 Flow Rate FiO2 02/06/17 18:52 36.8 74 17 120/71 96 Room Air Exam NAD, comfortably laying down on the bed no JVD, MMM, no LAD RRR, nl s1, s2 no mrg CTAB, no w,c S,ND,NT,normoactive BS+ warm, no edema, pulses 2/2, bilateral dorsiflexiion /5 Test 02/03/17 05:44 02/04/17 01:10 02/06/17 06:14 Hemoglobin A1c 5.5% (4.8-5.6) Phosphorus Level 3.4mg/dL (2.5-4.9) Total Creatine Kinase 24U/L (21-215) White Blood Count 5.3th/mm3 (3.8-10.1) Red Blood Count 2.80mil/mm3 (3.90-5.20) Hemoglobin 8.7g/dL (12.0-15.6) Hematocrit 27.4% (35.0-46.0) Mean Corpuscular Volume 97.9fL (81-100) Mean Corpuscular Hemoglobin 31.1pg (27.0-35.0) Mean Corpuscular Hemoglobin Concent 31.8% (32.0-37.0) Red Cell Distribution Width 15.4% (12.3-15.4) Platelet Count 162bil/L (150-400) Neutrophils (%) (Auto) 94.1% (40-74) Lymphocytes (%) (Auto) 3.6% (14-46) Monocytes (%) (Auto) 2.1% (4-12) Eosinophils (%) (Auto) 0% (0-5) Basophils (%) (Auto) 0% (0-3) Sodium Level 144mEq/L (134-144) Potassium Level 4.2mEq/L (3.5-5.2) Chloride Level 107mEq/L (97-108) Carbon Dioxide Level 24mmol/L (18-29) Blood Urea Nitrogen 16mg/dL (8-27) Creatinine 0.56mg/dL (0.57-1.00) Estimat Glomerular Filtration Rate 157mL/min (>59) Glucose Level 126mg/dL (60-99) Calcium Level 9.1mg/dL (8.5-10.1) Magnesium Level 2.0mg/dL (1.6-2.6) Total Bilirubin 0.3mg/dL (0.0-1.2) Aspartate Amino Transf (AST/SGOT) 20U/L (0-50) Alanine Aminotransferase (ALT/SGPT) 16U/L (0-32) Alkaline Phosphatase 47U/L (25-165) Total Protein 4.7g/dL (6.4-8.4) Albumin 2.9g/dL (3.4-5.0) Discharge Medications Discharge Medications Lorazepam (Ativan) 0.5 Mg Tablet 0.5-1 MG PO HS (Reported) Metoprolol Succinate ER (Metoprolol Succinate ER) 50 Mg Tab.er.24h 50 MG PO DAILY (Reported) Prednisone (PredniSONE) 5 Mg Tab 5 MG PO QAM (Reported) As needed Acetaminophen (Acetaminophen) 325 Mg Tablet 650 MG PO Q4H PRN PRN Bone Pain ( Reported) Dexamethasone (Dexamethasone) 4 Mg Tablet 1 TAB PO PRN For Nausea (Reported) Ibuprofen (Ibuprofen) 200 Mg Capsule 400 MG PO QID PRN PRN Bone pain (Reported) Ondansetron ODT (Ondansetron ODT) 8 Mg Tab.rapdis 8 MG PO Q4H PRN PRN For Nausea (Reported) Prochlorperazine Maleate (Compazine) 10 Mg Tablet 10 MG PO q4hrs prn PRN PRN For Nausea (Reported) oxyCODONE-Acetaminophen 5-325 mg (oxyCODONE-Acetaminophen 5-325 mg) 1 Each Tablet 1-2 TAB PO Q6H PRN PRN For Pain (Reported) Additional med instructions Please note that prednisone taper is advised. take 20mg for 2days then 10mg for 2days then take 5mg afterwards Followup Plan Disposition: home Follow-up plan Please follow up with as scheduled Patient Instructions You were hospitalized for chemotherapy for lymphoma. You tolerated well without complication. Follow-up Provider: Kojo Ferris MD Follow-up with PCP in: 1 week Time spent 65min Danisha Cueva MD Feb 07, 2017 13:20
== END 2017-02-06 20:26 | disposition home or self-care (01) | DRG 847 ==
LOC: OSC 09:50
PROVIDERS: ADMIT Internal Medicine; ATTEND Internal Medicine
DX: Z51.11 Encounter for antineoplastic chemotherapy (principal); C83.30 Diffuse large B-cell lymphoma, unspecified site; R00.0 Tachycardia, unspecified; R73.9 Hyperglycemia, unspecified

== ENCOUNTER 2017-02-23 09:17 | Inpatient (IN) | payer OTHER ==
[~2017-02-23] VITALS: Ht 165.1 cm; Wt 67.4 kg
[2017-02-23] VITALS (13 sets, daily range): BP systolic 89–112; BP diastolic 49–73; PULSE 72–102; RESP 16–20; O2SAT 97–100
[~2017-02-23 09:17] MED LIST changes: +LORA0.5T PO; -OXYC1TAB24 PO; +TBO-480S SQ
--- NOTE | 2017-02-23 10:02 | NUR ---
Admission Pt arrived post being seen by Dr. Kc; walked onto unit with and personal belongings. Oriented to new room in anticipation of ~5 day stay for chemotherapy - second cycle. Present to [facility] unit at 0915. Staying in room 1031. A&Ox3, LUCIANO, In stable condition - hypotension, No complaints of pain, IV therapy aware of pt presence and the need to have PORT accessed, Ambulating with two canes - wearing AFO braces bilaterally, Admission completed. Awaiting further orders. Pt and calm and cooperative with care. Oriented to room - call light in reach. Pt able to make needs known.
[2017-02-23] MEDS ORDERED: 0.9% Sodium Chloride 1,000 ML IV SCH (10:20)
[2017-02-23] MEDS ORDERED: 0.9% Sodium Chloride 250 ML IV ONE (10:20)
[2017-02-23] MEDS ORDERED: Ondansetron 2 mg/mL 2 mL Inj IVPUSH PRN ×2 (10:25→19:25)
[2017-02-23] MEDS ORDERED: Alum-Mag Hydrox-Simeth 30 mL Suspension PO PRN (10:25)
[2017-02-23] MEDS ORDERED: Polyethylene Glycol (PEG) 17 Gm Powder PO PRN (10:25)
[2017-02-23] MEDS: MeTOProlol XL 50 mg ER24 Tablet PO SCH (10:41)
[2017-02-23] MEDS ORDERED: oxyCODONE-Acetamin 5-325 mg Tablet PO PRN (10:45)
[2017-02-23] MEDS ORDERED: Ondansetron 2 mg/mL 2 mL Inj IVPUSH ONE (11:00)
[2017-02-23] MEDS: predniSONE 20 mg Tablet PO SCH (11:18)
[2017-02-23] MEDS: Trimethoprim-Sulfa 160 mg-800 mg Tablet PO SCH (11:18)
[2017-02-23] MEDS ORDERED: SODIUM CHLORIDE 0.9% IV SCH (11:30)
[2017-02-23] MEDS ORDERED: RITUXIMAB IV SCH (11:30)
--- NOTE | 2017-02-23 12:03 | PCM.HPMED ---
Subjective Date of Service Feb 23, 2017 Primary Provider: Admitting Physician: Kojo Ferris MD Primary Care Physician: Sarah Mahajan MD Attending Physician: Kojo Ferris MD Admit Status: Direct Admit, Admit to Red Team Chief Complaint: Direct admission from oncology for second round of chemotherapy History of Present Illness: 62-year-old female with aggressive diffuse large B cell non-Hodgkin's lymphoma diagnosed in October 2016, received R-CHOP but poorly responded and developed peripheral neuropathy suspected from vincristine, autonomic neuropathy with sinus tachycardiac currently on BB, pt was sent from clinic for 2nd of 3 cycles of Rituxan plus EPOCH again without vincristine. Patient tolerated the first cycle of EPOCH without any adverse effects. Per Dr. Kc- patient tolerated first cycle of EPOCH much better than the original regimen. Vincristine is not being added because patient had peripheral neuropathy and bilateral foot drop which is improving. Her blood pressure does tend to run on the low side. Patient has been evaluated by cardiology and was started on metoprolol. He thinks that this is likely due to autonomic dysfunction related to her chemotherapy. Dr. Sampson saw patient in office today and got a baseline set of labs. Patient takes Neupogen but will not be taking that during this admission. Chemotherapy should be completed Sunday evening. Review of Systems: 12 point review of symptoms negative except for that in history of present illness Allergies Coded Allergies: No Known Allergies (Verified , 01/05/17) Home Medications 1. Metoprolol extended release 50 mg once a day. 2. Odansetron p.r.n. 3. Prednisone 5 mg daily. 4. Compazine and Zofran p.r.n. PMH 1. No significant comorbidities. 2. History of previous C. difficile colitis in 2004. 3. Ankle repair surgery in 2003. Surgical History She is . 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 Social History Hx Alcohol Use: No Hx Substance Use: No Hx Tobacco Use: No Smoking Status: Never Smoker Exam Vital Signs Vital Sign - Last Date Time Temp Pulse Resp B/P Pulse Ox O2 Delivery O2 Flow Rate FiO2 02/23/17 09:48 36.6 102 18 89/49 99 Room Air Exam Gen: NAD, AOx3. Wearing bandana HEENT: NCAT, PERRLA, EOMI, MMM, sclera anicteric. Neck: Soft, supple, symmetrical, no thyromegaly/JVD/LAD. Resp: CTAB, no R/R/W. CV: Tachycardic, nl S1/S2, no M/R/G, Abd: Soft, (+) BS, no guarding/rebound/organomegaly. Ext: +PP, -edema Skin: warm/dry/intact Neuro/Psych: Bilateral dorsiflexion 1/5. No other motor deficits. CN II- XII grossly intact. AAOx3, cooperative, appropriate mood/affect. Assessment & Plan 62-year-old female with aggressive diffuse large B cell non-Hodgkin's lymphoma diagnosed in October 2016, received R-CHOP but poorly responded and developed peripheral neuropathy suspected from vincristine, autonomic neuropathy with sinus tachycardiac currently on BB, pt was sent from clinic for 2nd of 3 cycles of Rituxan plus EPOCH again without vincristine #Aggressive diffuse large B-cell non-Hodgkin's lymphoma- present on admission, active -currently undergoing cycle 2 of EPOCH. Will begin 02/23/2017 and will complete evening of 02/27/2017. Patient tolerated last cycle well without any adverse events. Spoke with Dr. Adrián Pete and chemotherapy orders have been placed. - Zofran when necessary, IV fluids as needed, - Check daily blood sugars as patient is being given prednisone however lower dose than the previous admission. - Telemetry. #Sinus tachycardia with hypotension, likely due to autonomic neuropathy- present on admission, active-Dr. Sampson he believes that this is secondary to chemotherapy. Will continue on cardiac monitoring. Patient says she is asymptomatic with episodes of tachycardia. Continue metoprolol home medication. - Patient usually has a low blood pressure, to give fluids boluses as needed. #peripheral neuropathy with bilateral foot drop - chronic stable. Complication from vincristine. Patient does not fall frequently. dispo:Patient will be admitted with inpatient status with expectation of inpatient therapy for more than 2 midnights Pain Evaluation: Adequate Pain Control VTE Prophylaxis: Sub-Q Enoxaparin VTE Mechanical Devices: Intermittant Pneumatic CD Resuscitation Status: CPR: Attempt Resuscitation Livan Melgoza MD Feb 23, 2017 12:03
--- NOTE | 2017-02-23 12:12 | NUR ---
CHEMOTHERAPY Initiate second cycle - start with Rituxamib. Consent signed. No questions, pt aware of plan of care. Pt premedicated with 16mg IVP Zofran, 650mg PO Tylenol, 100mg PO Prednisone, 25mg Benadryl. Telemetry in place, VSS, Port patent - blood return checked and present, Aware of s/sx to call staffing for. Started Rituxamib at 50cc/hr, set to beep in 30mins for recheck and increase in rate if pt tolerating. NS infusing concurrently at 75ml/hr. Pt now sleepy but conversing, present in room. Call light in reach.
[2017-02-23] MEDS: SODIUM CHLORIDE 0.9% IV SCH (15:10)
[2017-02-23] MEDS: DOXORUBICIN IV SCH (15:10)
[2017-02-23] MEDS: ETOPOSIDE IV SCH (15:10)
--- NOTE | 2017-02-23 18:57 | NUR ---
Etoposide/Doxorubicin VSS. Blood return present via PORT. Started infusion at 21ml/hr. VS rechecked within 20 minutes of start. Stable. Continued infusion. No issues. Pt tolerating. Aware of s/sx to let nursing know about - pt understanding. At 1830, call to Pharmacy after Dr. Kc writing order to be able to infuse chemo over 22hrs. Per pharmacy, okay to increase to 26ml/hr with the hope of being completed around 1200 on 02/24. Care continues. NOC RN made aware.
--- NOTE | 2017-02-23 19:09 | PROG NOTE ---
[address] [address] PROGRESS NOTE PATIENT: MAYCOL IRBY : 1955 MR#: [id number] ADMIT: 02/23/2017 JOB ID: [id number] DATE: The patient seen in the hospital. She was successfully admitted earlier this morning and started the chemotherapy with Rituxan and has started day one of infusional doxorubicin, etoposide. I have. I communicated with her nurse to, per patient request, increase rate of infusion so administered each day over 22 hours rather than 24 hours to facilitate the patient desires to be able to be discharged on Sunday evening on time. For details, please refer to my note of earlier today from the office visit leading to the admission.
--- NOTE | 2017-02-23 20:40 | NUR ---
ACTIVITY; up ambulating in hallway x2 since 1930- tolerating well.
--- NOTE | 2017-02-23 21:27 | NUR ---
ACTIVITY; up in hallway with .
[2017-02-23] MEDS: LORazepam 1 mg Tablet PO PRN (22:25)
[2017-02-24] VITALS (7 sets, daily range): BP systolic 98–116; BP diastolic 59–71; PULSE 76–104; RESP 17–20; O2SAT 95–100
--- NOTE | 2017-02-24 01:00 | NUR ---
CHEMO; cont to infuse at 26cc/hr. No c/o chest pain or discomfort. V.S.S. Ativan requested for sleep. Addendum: 02/24/17 at 0225 by JUAN F RILEY RN N.S. hydration cont at 75cc/hr.
[2017-02-24] MEDS: 0.9% Sodium Chloride 1,000 ML IV SCH ×2 (02:26→15:58)
--- NOTE | 2017-02-24 04:03 | NUR ---
P. CATH; checked - good blood return.
--- NOTE | 2017-02-24 04:51 | NUR ---
[employer] tech states "sinus rhythm 61".
[2017-02-24 05:30] LABS: BASOPHILS % (AUTO) 0.4 % (0-3); EOSINOPHILS % (AUTO) 0 % (0-5); MONOCYTES % (AUTO) 14.8 % (4-12); Mean Corpuscular Hemoglobin 31.8 pg (27.0-35.0); NEUTROPHILS % (AUTO) 74.9 % (40-74); Platelet Count 171 bil/L (150-400)
[2017-02-24] MEDS: MeTOProlol XL 50 mg ER24 Tablet PO SCH (09:01)
[2017-02-24] MEDS: Trimethoprim-Sulfa 160 mg-800 mg Tablet PO SCH (09:01)
[2017-02-24] MEDS: predniSONE 20 mg Tablet PO SCH (09:03)
[2017-02-24] MEDS: 0.9% Sodium Chloride 250 ML IV SCH (10:12)
[2017-02-24] MEDS ORDERED: HepLOK Flush 100 unit/mL 5 mL Inj IVFLUSH PRN (10:15)
[2017-02-24] MEDS ORDERED: Sodium Chloride LOK Flush 10 mL Syringe IVFLUSH PRN ×2 (10:15)
[2017-02-24] MEDS: ETOPOSIDE IV SCH (12:40)
[2017-02-24] MEDS: DOXORUBICIN IV SCH (12:40)
[2017-02-24] MEDS: SODIUM CHLORIDE 0.9% IV SCH (12:40)
[2017-02-24] MEDS: Ondansetron 2 mg/mL 2 mL Inj IVPUSH SCH (12:52)
--- NOTE | 2017-02-24 16:33 | NUR ---
Social Work- Multidisciplinary Rounds Pt discussed in rounds. No social work needs identified in rounds. SW unable to see pt today due to high census. SW will continue to follow. ELVIS Wood
--- NOTE | 2017-02-24 16:40 | NUR ---
Chemo/fatigue Patient receiving Etoposide 80 mg IV and Doxorubicin 16 mg IV in same solution bag over 22 hours. Bag 2 of 4 hung today. Chemo dose double checked with another chemo nurse. Pre medicated with ondanestron as ordered. Patient with Carloz cath brisk blood return when checked, site clean, dry and intact. Patient denies any adverse effects today but does have ongoing neuropathy in lower extremities . Patient denies pain up ambulated hallway several times this shift. Patient denies pain.
--- NOTE | 2017-02-24 17:28 | PCM.PNMED ---
Subjective Date of Service Feb 24, 2017 Subjective Tolerated well. Doesn't want lovenox injections. Is walking many times a day. . Exam Vital Signs Vital Sign - Last Date Time Temp Pulse Resp B/P Pulse Ox O2 Delivery O2 Flow Rate FiO2 02/24/17 16:00 36.1 85 18 101/63 99 Room Air Intake and Output 02/23/17 02/23/17 02/24/17 Cumulative From/Thru 15:00 23:00 07:00 02/23/17 09:49 - 02/24/17 06:30 Intake Total 2340 ml 1360 ml 3700 ml Output Total 1350 ml 2000 ml 3350 ml Balance 990 ml -640 ml 350 ml Intake Oral 1280 ml 350 ml 1630 ml IV Total 1060 ml 1010 ml 2070 ml Output Urine Total 1350 ml 2000 ml 3350 ml # Bowel Movements 1 1 Exam Gen: NAD, AOx3. Wearing bandana HEENT: NCAT, PERRLA, EOMI, MMM, sclera anicteric. Neck: Soft, supple, symmetrical, no thyromegaly/JVD/LAD. Resp: CTAB, no R/R/W. CV: Tachycardic, nl S1/S2, no M/R/G, Abd: Soft, (+) BS, no guarding/rebound/organomegaly. Ext: +PP, -edema Skin: warm/dry/intact Neuro/Psych: Bilateral dorsiflexion 1/5. No other motor deficits. CN II- XII grossly intact. AAOx3, cooperative, appropriate mood/affect. Lab and Diagnostics Result Diagram: 02/24/1751202/24/17512 Assessment & Plan 62-year-old female with aggressive diffuse large B cell non-Hodgkin's lymphoma diagnosed in October 2016, received R-CHOP but poorly responded and developed peripheral neuropathy suspected from vincristine, autonomic neuropathy with sinus tachycardiac currently on BB, pt was sent from clinic for 2nd of 3 cycles of Rituxan plus EPOCH again without vincristine #Aggressive diffuse large B-cell non-Hodgkin's lymphoma- present on admission, active -currently undergoing cycle 2 of EPOCH. Will begin 02/23/2017 and will complete evening of 02/27/2017. Patient tolerated last cycle well without any adverse events. Spoke with Dr. Adrián Pete and chemotherapy orders have been placed. - Zofran when necessary, IV fluids as needed, - Check daily blood sugars as patient is being given prednisone however lower dose than the previous admission. - Telemetry. #Sinus tachycardia with hypotension, likely due to autonomic neuropathy- present on admission, active-Dr. Sampson he believes that this is secondary to chemotherapy. Will continue on cardiac monitoring. Patient says she is asymptomatic with episodes of tachycardia. Continue metoprolol home medication. - Patient usually has a low blood pressure, to give fluids boluses as needed. #peripheral neuropathy with bilateral foot drop - chronic stable. Complication from vincristine. Patient does not fall frequently. dispo:Patient will be admitted with inpatient status with expectation of inpatient therapy for more than 2 midnights VTE Mechanical Devices: Intermittant Pneumatic CD Resuscitation Status: CPR: Attempt Resuscitation Livan Melgoza MD Feb 24, 2017 17:28
--- NOTE | 2017-02-24 18:10 | NUR ---
Nausea patient with nausea this afternoon medicated with compazine waiting effectiveness.
--- NOTE | 2017-02-24 21:30 | NUR ---
Chemotherapy - day 2 of 5 Pt with Doxorubicin and Etoposide chemotherapy infusion infusing at 22ml/hr through portacath concurrently with NS at 75ml/hr. Brisk blood return checked and observed with initial physical assessment. Pt tolerating. Pt denying pain and currently denying nausea. Pt did state wanting to take PO Ativan and PO Zofran at HS to help her sleep. Pt sleepy, call light in reach. Able to make needs known. Care continues. Addendum: 02/25/17 at 0633 by MOLLY PRADO RN Pt tolerated infusion overnight, no issues overnight. Sleeping intermittently and up to BSC PRN independently. Chemo continues.
[2017-02-24] MEDS: LORazepam 1 mg Tablet PO PRN (22:00)
[2017-02-25] VITALS (9 sets, daily range): BP systolic 101–122; BP diastolic 58–71; PULSE 62–86; RESP 16–18; O2SAT 97–100
[2017-02-25] MEDS: 0.9% Sodium Chloride 1,000 ML IV SCH ×2 (05:45→18:28)
[2017-02-25] MEDS: Trimethoprim-Sulfa 160 mg-800 mg Tablet PO SCH (08:23)
[2017-02-25] MEDS: MeTOProlol XL 50 mg ER24 Tablet PO SCH (08:23)
[2017-02-25] MEDS: 0.9% Sodium Chloride 250 ML IV SCH (08:23)
[2017-02-25] MEDS: predniSONE 20 mg Tablet PO SCH (08:23)
[2017-02-25 09:40] LABS: BASOPHILS % (AUTO) 0.4 % (0-3); EOSINOPHILS % (AUTO) 0 % (0-5); MONOCYTES % (AUTO) 7.4 % (4-12); Mean Corpuscular Hemoglobin 31.8 pg (27.0-35.0); Mean Corpuscular Volume 101.9 fL (81-100); NEUTROPHILS % (AUTO) 83.2 % (40-74); Platelet Count 194 bil/L (150-400)
--- NOTE | 2017-02-25 12:19 | CCS NOTE ---
[facility] [address] [place] [address], [address] [address] MEDICAL ONCOLOGY OFFICE NOTE PATIENT: MAYCOL IRBY : 1955 MR#: [id number] DATE: 02/23/2017 JOB ID: [id number] DATE: 02/25/2017 SUBJECTIVE: I reviewed the patient's course in [facility] and spoke with the patient's nurse and the patient herself over the phone. So far, the infusional chemotherapy with EPOCH has been going as planned, without any incidence. She had minimal nausea at one time and received medication which resolved it quickly. She has been ambulating in the hallways. As discussed, the infusion rate was increased to finish each daily bag of doxorubicin and etoposide over 22 hours instead of 24 hours to facilitate timely completion and discharge per patient's desire on Sunday evening. OBJECTIVE: Her vitals are stable. Blood pressure 101/58. LABORATORY: Hemoglobin has dropped but has stabilized from 10 to now 8.3. Slight hypokalemia and treat with a potassium of 3.3. PLAN: Day three infusional bag will start this afternoon.
[2017-02-25] MEDS: Ondansetron 2 mg/mL 2 mL Inj IVPUSH SCH (13:33)
[2017-02-25] MEDS: SODIUM CHLORIDE 0.9% IV SCH (13:48)
[2017-02-25] MEDS: ETOPOSIDE IV SCH (13:48)
[2017-02-25] MEDS: DOXORUBICIN IV SCH (13:48)
--- NOTE | 2017-02-25 15:52 | PCM.PNMED ---
Subjective Date of Service Feb 25, 2017 Subjective Has tolerated treatment with no adverse effects so far. Exam Vital Signs Vital Sign - Last Date Time Temp Pulse Resp B/P Pulse Ox O2 Delivery O2 Flow Rate FiO2 02/25/17 15:42 36.6 81 18 112/62 100 Room Air Intake and Output 02/24/17 02/24/17 02/25/17 Cumulative From/Thru 15:00 23:00 07:00 02/23/17 09:49 - 02/25/17 06:37 Intake Total 2521 ml 1430 ml 7651 ml Output Total 1350 ml 1550 ml 6250 ml Balance 1171 ml -120 ml 1401 ml Intake Oral 1200 ml 400 ml 3230 ml IV Total 1321 ml 1030 ml 4421 ml Output Urine Total 1350 ml 1550 ml 6250 ml # Bowel Movements 0 1 Exam Gen: NAD, AOx3. Wearing bandana HEENT: NCAT, PERRLA, EOMI, MMM, sclera anicteric. Neck: Soft, supple, symmetrical, no thyromegaly/JVD/LAD. Resp: CTAB, no R/R/W. CV: Tachycardic, nl S1/S2, no M/R/G, Abd: Soft, (+) BS, no guarding/rebound/organomegaly. Ext: +PP, -edema Skin: warm/dry/intact Neuro/Psych: Bilateral dorsiflexion 1/5. No other motor deficits. CN II- XII grossly intact. AAOx3, cooperative, appropriate mood/affect. IVs and Medications Medications Reviewed: Medications were reviewed in detail Lab and Diagnostics Result Diagram: 02/25/1791302/25/17913 Assessment & Plan 62-year-old female with aggressive diffuse large B cell non-Hodgkin's lymphoma diagnosed in October 2016, received R-CHOP but poorly responded and developed peripheral neuropathy suspected from vincristine, autonomic neuropathy with sinus tachycardiac currently on BB, pt was sent from clinic for 2nd of 3 cycles of Rituxan plus EPOCH again without vincristine #Aggressive diffuse large B-cell non-Hodgkin's lymphoma- present on admission, active -currently undergoing cycle 2 of EPOCH. Will begin 02/23/2017 and will complete evening of 02/27/2017. Patient tolerated last cycle well without any adverse events. Spoke with Dr. Jafar E and chemotherapy orders have been placed. - Zofran when necessary, IV fluids as needed, - Check daily blood sugars as patient is being given prednisone however lower dose than the previous admission. - Telemetry. #Sinus tachycardia with hypotension, likely due to autonomic neuropathy- present on admission, active-Dr. Sampson he believes that this is secondary to chemotherapy. Will continue on cardiac monitoring. Patient says she is asymptomatic with episodes of tachycardia. Continue metoprolol home medication. - Patient usually has a low blood pressure. #peripheral neuropathy with bilateral foot drop - chronic stable. Complication from vincristine. Patient does not fall frequently. dispo: Patient will be admitted with inpatient status with expectation of inpatient therapy for more than 2 midnights. VTE Mechanical Devices: Intermittant Pneumatic CD Resuscitation Status: CPR: Attempt Resuscitation Livan Melgoza MD Feb 25, 2017 15:52
--- NOTE | 2017-02-25 16:24 | NUR ---
Social Work- Multidisciplinary Rounds Pt discussed in rounds. Pt will complete chemotherapy, anticipate multiple more days. SW unable to see pt today due to high census. SW will continue to follow. ELVIS Wood
--- NOTE | 2017-02-25 17:18 | NUR ---
Chemo New bag Etoposide/Doxorubicin hung at 13:48 after pre-meds. Good blood return from port. No s/s adverse effects/reaction.
[2017-02-25] MEDS: LORazepam 1 mg Tablet PO PRN (23:16)
[2017-02-26 00:54] VITALS: BP 123/66; PULSE 63; RESP 16; O2SAT 98
--- NOTE | 2017-02-26 05:00 | NUR ---
Chemo monitoring Tolerating chemo infusion without adverse effects; brisk blood return from port. Mild nausea well controlled with prn medications. Hourly rounding ongoing.
[2017-02-26 05:56] LABS: BASOPHILS % (AUTO) 0.3 % (0-3); EOSINOPHILS % (AUTO) 0 % (0-5); MONOCYTES % (AUTO) 8.5 % (4-12); Mean Corpuscular Hemoglobin 31.6 pg (27.0-35.0); Mean Corpuscular Volume 100.4 fL (81-100); NEUTROPHILS % (AUTO) 82.2 % (40-74); Platelet Count 188 bil/L (150-400)
[2017-02-26] MEDS: 0.9% Sodium Chloride 1,000 ML IV SCH (08:04)
[2017-02-26] MEDS: predniSONE 20 mg Tablet PO SCH (08:07)
[2017-02-26] MEDS: MeTOProlol XL 50 mg ER24 Tablet PO SCH (08:07)
[2017-02-26] MEDS: Trimethoprim-Sulfa 160 mg-800 mg Tablet PO SCH (08:07)
[2017-02-26 08:09] VITALS: BP 117/66; PULSE 69; RESP 16; O2SAT 95
[2017-02-26] MEDS: 0.9% Sodium Chloride 250 ML IV SCH (10:12)
[2017-02-26] MEDS: Ondansetron 2 mg/mL 2 mL Inj IVPUSH SCH (11:52)
[2017-02-26] MEDS: ETOPOSIDE IV SCH (12:00)
[2017-02-26] MEDS: SODIUM CHLORIDE 0.9% IV SCH (12:00)
[2017-02-26] MEDS: DOXORUBICIN IV SCH (12:00)
[2017-02-26 13:05] VITALS: BP 101/58; PULSE 87; RESP 18; O2SAT 96
--- NOTE | 2017-02-26 14:48 | NUR ---
Chemo Etoposide/Doxorubicin new bag hung at 12:00. Positive blood return from port. No new/worsening side effects.
--- NOTE | 2017-02-26 15:51 | NUR ---
Social Work: Initial Assessment/Readiness for Discharge/Multi-Disciplinary Rounds D:EMR reviewed. Please see Initial Assessment linked to this note for more information. Pt is a 62 y/o female admitted for scheduled Chemo infusion for large B cell lymphoma per H&P. Pt does not have a re-admit risk score. Pt is a re-admit for Chemo infusion. Pt to arrive to hospital again in 3-weeks for another Chemo infusion (scheduled). SW met with pt and spouse at bedside to conduct initial assessment. Pt was alert and oriented x3. SW explained role and wrote phone number on white board. SW provided "Your Discharge Planning Checklist" and encouraged pt to contact SW for any discharge planning questions. Pt's insurance is [employer]. PCP is Sarah Mahajan MD and Dr. Kc (Oncology) - pt screened in for full assessment due to multiple providers and medical complexities. Pt gave verbal consent to contact for spouse, Horace Orozco [phone] for discharge planning. DPOA/advanced directive ppw discussed and provided. Pt encouraged to provide a completed copy to the hospital. Per rounds, pt to receive last Chemo infusion today and discharge tomorrow, as scheduled. No discharge needs identified. A: SW assessed pt's capacity for self-care. SW does not have any concerns for pt's capacity for self-care. Pt is independent at baseline. P: Pt likely to discharge with spouse tomorrow via POV. Pt does not have any discharge needs at this time. Pt to return to hospital in 3-weeks for scheduled Chemo infusion. SW will continue to follow for needs. ELVIS Kaufman Addendum: 02/26/17 at 1555 by REGINA ALANIS Amended: Links added. Addendum: 02/26/17 at 1600 by REGINA BONNER SS Pt is open with [facility] for PT 2x/week. Pt could not recall agency - received T/C from Hanna from [facility] requesting resumption orders for pt's PT 2x/week. SW received MD orders. MARNIE provided access. T/C to Hanna from [facility] with update regarding access and resumption orders. ELVIS Kaufman
--- NOTE | 2017-02-26 16:03 | PCM.PNMED ---
Subjective Date of Service Feb 26, 2017 Subjective Pt had some nausea overnight. No new issues. Exam Vital Signs Vital Sign - Last Date Time Temp Pulse Resp B/P Pulse Ox O2 Delivery O2 Flow Rate FiO2 02/26/17 13:05 36.7 87 18 101/58 96 Room Air Intake and Output 02/25/17 02/25/17 02/26/17 Cumulative From/Thru 15:00 23:00 07:00 02/23/17 09:49 - 02/26/17 06:40 Intake Total 4102 ml 2030 ml 79966 ml Output Total 650 ml 1300 ml 8200 ml Balance 3452 ml 730 ml 5583 ml Intake Oral 1868 ml 850 ml 5948 ml IV Total 2234 ml 1180 ml 7835 ml Output Urine Total 650 ml 1300 ml 8200 ml # Bowel Movements 0 1 Exam Gen: NAD, AOx3. Wearing bandana HEENT: NCAT, PERRLA, EOMI, MMM, sclera anicteric. Neck: Soft, supple, symmetrical, no thyromegaly/JVD/LAD. Resp: CTAB, no R/R/W. CV: RRR, nl S1/S2, no M/R/G, Abd: Soft, (+) BS, no guarding/rebound/organomegaly. Ext: +PP, -edema Skin: warm/dry/intact Neuro/Psych: Bilateral dorsiflexion 1/5. No other motor deficits. CN II- XII grossly intact. AAOx3, cooperative, appropriate mood/affect. IVs and Medications Medications Reviewed: Medications were reviewed in detail Lab and Diagnostics Result Diagram: 02/26/17 0537 02/26/17 0537 Assessment & Plan 62-year-old female with aggressive diffuse large B cell non-Hodgkin's lymphoma diagnosed in October 2016, received R-CHOP but poorly responded and developed peripheral neuropathy suspected from vincristine, autonomic neuropathy with sinus tachycardiac currently on BB, pt was sent from clinic for 2nd of 3 cycles of Rituxan plus EPOCH again without vincristine #Aggressive diffuse large B-cell non-Hodgkin's lymphoma- present on admission, active -currently undergoing cycle 2 of EPOCH. Will begin 02/23/2017 and will complete evening of 02/27/2017. Patient tolerated last cycle well without any adverse events. Spoke with Dr. Adrián Pete and chemotherapy orders have been placed. - Zofran when necessary, IV fluids as needed, - Check daily blood sugars as patient is being given prednisone however lower dose than the previous admission. - Telemetry. #Sinus tachycardia with hypotension, likely due to autonomic neuropathy- present on admission, active-Dr. Sampson he believes that this is secondary to chemotherapy. Will continue on cardiac monitoring. Patient says she is asymptomatic with episodes of tachycardia. Continue metoprolol home medication. - Patient usually has a low blood pressure. #peripheral neuropathy with bilateral foot drop - chronic, stable. Complication from vincristine. Patient does not fall frequently. Dvt ppx- ambulatory, refuses Lovenox ppx. dispo: Chemotherapy 02/23/2017 and will complete evening of 02/27/2017. - Upon Discharge pt to resume Home Health PT 2x/week VTE Mechanical Devices: Intermittant Pneumatic CD Resuscitation Status: CPR: Attempt Resuscitation Livan Melgoza MD Feb 26, 2017 16:03 Livan Melgoza MD Feb 26, 2017 16:03
[2017-02-26 20:00] VITALS: PULSE 82
[2017-02-26 20:31] VITALS: BP 121/71; PULSE 81; RESP 16; O2SAT 96
[2017-02-26] MEDS: LORazepam 1 mg Tablet PO PRN (22:03)
[2017-02-27 00:20] VITALS: BP 132/68; PULSE 63; RESP 18; O2SAT 98
[2017-02-27] MEDS: 0.9% Sodium Chloride 1,000 ML IV SCH ×2 (01:00→10:25)
--- NOTE | 2017-02-27 04:17 | NUR ---
Chemo monitoring Tolerating chemo infusion without adverse effects; brisk blood return from port. Mild nausea well controlled with prn medications. Hourly rounding ongoing.
[2017-02-27 05:25] VITALS: BP 113/66; PULSE 99; RESP 18; O2SAT 96
[2017-02-27 06:52] LABS: BASOPHILS % (AUTO) 0.3 % (0-3); EOSINOPHILS % (AUTO) 0 % (0-5); MONOCYTES % (AUTO) 5.25 % (4-12); Mean Corpuscular Hemoglobin 31.6 pg (27.0-35.0); Mean Corpuscular Volume 99.6 fL (81-100); NEUTROPHILS % (AUTO) 85.2 % (40-74); Platelet Count 212 bil/L (150-400)
[2017-02-27] MEDS: MeTOProlol XL 50 mg ER24 Tablet PO SCH (08:28)
[2017-02-27] MEDS: Trimethoprim-Sulfa 160 mg-800 mg Tablet PO SCH (08:28)
[2017-02-27] MEDS: predniSONE 20 mg Tablet PO SCH (08:41)
[2017-02-27] MEDS: 0.9% Sodium Chloride 250 ML IV SCH (10:12)
[2017-02-27 10:13] VITALS: PULSE 71
[2017-02-27] MEDS ORDERED: LEVO500T79 PO (12:46)
[2017-02-27] MEDS ORDERED: PRD5T PO (12:46)
--- NOTE | 2017-02-27 12:55 | PCM.DIMED ---
Discharge Instructions Date of Service Feb 27, 2017 Dates of Hospitalization Feb 23, 2017 at 09:17 Discharge Diagnosis Discharge Diagnosis # Very high-risk diffuse large B-cell lymphoma post cycle number two for Rituxan plus EPOCH therapy Medication Instructions Additional med instructions 1. Start Levofloxacin on Sunday03/03/17 2. Prednisone 5-20 mg daily: TAKE 4 TABS (20 MG) DAILY X 3 DAYS THEN, TAKE 2 TABS (10 MG) DAILY X 2 DAYS THEN, TAKE 1 TAB (5 MG) DAILY & check with Dr. Kc on when to stop 3. Resume Granix tomorrow evening (02/28/17) Diet Discharge Diet: No restrictions Activity Discharge Activity: No restrictions Call your provider Call your provider for: Fever or Chills, Shortness of breath, Bleeding, Vomitting, Excessive diarrhea Patient Instructions Patient Instructions Seek immediate medical attention if any new or worsening signs or symptoms occur. Follow-up plan 1. Followup with primary care provider as needed. 2. Followup with oncology (Dr. Kc) as already planned. Follow-up Provider: Sarah Mahajan MD Provider: Kojo Ferris MD, Masoud Feb 27, 2017 12:54
--- NOTE | 2017-02-27 13:02 | NUR ---
Social Work- Discharge/Multidisciplinary Rounds Data: EMR reviewed. Pt discussed in rounds. Pt is on day 4 of hospitalization. Pt to discharge today, discharge orders are active. MARNIE met with pt at bedside regarding discharge plan. Pt is agreeable to discharge today. T/C to Hanna at [facility] regarding pt's discharge. [facility] agreeable to discharge pending resumption of HH orders. notified that resumption orders are required. [facility] will fax discharge orders over to Hanna when updated. Pt to discharge home with her to transport via POV, resume [facility] services. No other discharge needs at this time. Assessment: Pt for whom resume HH services are required at discharge. Plan: notified that resumption orders are required. [facility] will fax discharge orders over to Hanna when updated. Pt to discharge home with her to transport via POV, resume [facility] services. No other discharge needs at this time. ELVIS Wood Addendum: 02/27/17 at 1356 by PERRI OLSON Resumption of care orders received from . [facility] notified of access granted and they will pull resumption orders from [facility]. No additional needs identified ELVIS Wood
--- NOTE | 2017-02-27 13:17 | NUR ---
Gave access to [facility] per PRESS TECHNICIAN and order
--- NOTE | 2017-02-27 14:22 | NUR ---
Discharge Patient discharged home with spouse. Discussed discharge instructions with patient and present . Patient denied any further questions at this time. Patient given verbal and written home care instructions and agreed to understanding them. Patient given script for meds. Patient will follow up with Dr Kc as planned. HOme meds discussed.
--- NOTE | 2017-02-27 14:27 | NUR ---
Chemo Patient finished her Etoposide and Doxorubicin this early afternoon and then was given her Cyclophosphamide 1200 mg IV over [address] Kc was here and spoke with patient prior to dc.
[2017-02-27] MEDS ORDERED: Palonosetron 0.05 mg/mL 5 mL Inj IV ONE (14:30)
[2017-02-27] MEDS ORDERED: SODIUM CHLORIDE 0.9% IV ONE (15:00)
[2017-02-27] MEDS ORDERED: CYCLOPHOSPHAMIDE IV ONE (15:00)
--- NOTE | 2017-02-27 18:44 | PCM.DC.MED ---
Discharge Summary Date of Service Feb 27, 2017 Dates of Hospitalization Date of Hospital Admission Feb 23, 2017 at 09:17 Date of Discharge: Feb 27, 2017 Providers: Admitting Physician: Kojo Ferris MD Primary Care Physician: Sarah Mahajan MD Attending Physician: Amrit Us Diagnosis at Time of Discharge Diagnosis at Time of Discharge # Very high-risk diffuse large B-cell lymphoma post cycle number two for Rituxan plus EPOCH therapy Consultations 1. Oncology (Dr. Kc) Brief History As noted in H&P by Dr. Melgoza: 62-year-old female with aggressive diffuse large B cell non-Hodgkin's lymphoma diagnosed in October 2016, received R-CHOP but poorly responded and developed peripheral neuropathy suspected from vincristine, autonomic neuropathy with sinus tachycardiac currently on BB, pt was sent from clinic for 2nd of 3 cycles of Rituxan plus EPOCH again without vincristine. Patient tolerated the first cycle of EPOCH without any adverse effects. Per Dr. Kc- patient tolerated first cycle of EPOCH much better than the original regimen. Vincristine is not being added because patient had peripheral neuropathy and bilateral foot drop which is improving. Her blood pressure does tend to run on the low side. Patient has been evaluated by cardiology and was started on metoprolol. He thinks that this is likely due to autonomic dysfunction related to her chemotherapy. Dr. Sampson saw patient in office today and got a baseline set of labs. Patient takes Neupogen but will not be taking that during this admission. Chemotherapy should be completed Sunday. Hospital Course # Aggressive diffuse large B-cell non-Hodgkin's lymphoma- present on admission, active - Infusional chemotherapy with EPOCH going as planned, without any incidence. - She had minimal nausea at one time and received medication which resolved it quickly. - Ambulating in the hallways. - Infusion rate was increased to finish each daily bag of doxorubicin and etoposide over 22 hours instead of 24 hours to facilitate timely completion and discharge per patient's desire on Sunday evening. # Peripheral neuropathy with bilateral foot drop - chronic, stable. Complication from vincristine. Patient does not fall frequently. Exam Vital Signs (Last) Date Time Temp Pulse Resp B/P Pulse Ox O2 Delivery O2 Flow Rate FiO2 02/27/17 10:13 71 02/27/17 05:25 36.7 18 113/66 96 Room Air Exam Lungs: CTA bilat CV: RRR Abd: Soft, NT, ND, +BS Test 02/23/17 14:00 02/27/17 05:50 Lactic Acid Level 1.6mmol/L (0.4-2.0) White Blood Count 3.5th/mm3 (3.8-10.1) Red Blood Count 2.56mil/mm3 (3.90-5.20) Hemoglobin 8.1g/dL (12.0-15.6) Hematocrit 25.5% (35.0-46.0) Mean Corpuscular Volume 99.6fL (81-100) Mean Corpuscular Hemoglobin 31.6pg (27.0-35.0) Mean Corpuscular Hemoglobin Concent 31.8% (32.0-37.0) Red Cell Distribution Width 14.6% (12.3-15.4) Platelet Count 212bil/L (150-400) Neutrophils (%) (Auto) 85.2% (40-74) Lymphocytes (%) (Auto) 8.7% (14-46) Monocytes (%) (Auto) 5.25% (4-12) Eosinophils (%) (Auto) 0% (0-5) Basophils (%) (Auto) 0.3% (0-3) Sodium Level 146mEq/L (134-144) Potassium Level 4.3mEq/L (3.5-5.2) Chloride Level 109mEq/L (97-108) Carbon Dioxide Level 29mmol/L (18-29) Blood Urea Nitrogen 12mg/dL (8-27) Creatinine 0.67mg/dL (0.57-1.00) Estimat Glomerular Filtration Rate 128mL/min (>59) Glucose Level 82mg/dL (60-99) Calcium Level 8.8mg/dL (8.5-10.1) Total Bilirubin 0.2mg/dL (0.0-1.2) Aspartate Amino Transf (AST/SGOT) 20U/L (0-50) Alanine Aminotransferase (ALT/SGPT) 24U/L (0-32) Alkaline Phosphatase 50U/L (25-165) Total Protein 4.8g/dL (6.4-8.4) Albumin 3.0g/dL (3.4-5.0) Discharge Medications Discharge Medications Levofloxacin (Levofloxacin) 500 Mg Tablet 500 MG PO DAILY Start on 03/03/17 Prescribed by: AMRIT US MD Metoprolol Succinate ER (Metoprolol Succinate ER) 50 Mg Tab.er.24h 50 MG PO DAILY (Reported) Prednisone (PredniSONE) 5 Mg Tab 5-20 MG PO DIRECTED TAKE 4 TABS (20 MG) DAILY X 3 DAYS THEN, TAKE 2 TABS (10 MG) DAILY X 2 DAYS THEN, TAKE 1 TAB (5 MG) DAILY Prescribed by: AMRIT US MD Tbo-Filgrastim (Granix) 480 Mcg/0.8 Ml Syringe 480 MCG SQ x10dys starting 02/07 ( Reported) As needed Acetaminophen (Acetaminophen) 325 Mg Tablet 650 MG PO Q4H PRN PRN Bone Pain ( Reported) Ibuprofen (Ibuprofen) 200 Mg Capsule 400 MG PO QID PRN PRN Bone pain (Reported) Lorazepam (Lorazepam) 0.5 Mg Tablet 0.5-1 MG PO HS PRN PRN For Insomnia ( Reported) Ondansetron ODT (Ondansetron ODT) 8 Mg Tab.rapdis 8 MG PO Q8H PRN PRN For Nausea (Reported) Prochlorperazine Maleate (Compazine) 10 Mg Tablet 10 MG PO q4hrs prn PRN PRN For Nausea (Reported) Additional med instructions 1. Start Levofloxacin on Sunday03/03/17 2. Prednisone 5-20 mg daily: TAKE 4 TABS (20 MG) DAILY X 3 DAYS THEN, TAKE 2 TABS (10 MG) DAILY X 2 DAYS THEN, TAKE 1 TAB (5 MG) DAILY & check with Dr. Kc on when to stop 3. Resume Granix tomorrow evening (02/28/17) Followup Plan Disposition: Home with home health Follow-up plan 1. Followup with primary care provider as needed. 2. Followup with oncology (Dr. Kc) as already planned. Discharge Diet: No restrictions Discharge Activity: No restrictions Patient Instructions Seek immediate medical attention if any new or worsening signs or symptoms occur. Follow-up Provider: Sarah Mahajan MD Provider: Kojo Ferris MD Time spent 32 min copies to: Sarah Mahajan MD; Kojo Ferris MD, Masoud Feb 27, 2017 18:44
--- NOTE | 2017-02-27 19:27 | CCS NOTE ---
[facility] [address] [address] MEDICAL ONCOLOGY OFFICE NOTE PATIENT: MAYCOL IRBY : 1955 MR#: [id number] DATE: 02/23/2017 JOB ID: [id number] DATE: 02/27/2017 HISTORY OF PRESENT ILLNESS: The patient is a 62-year-old lady with aggressive diffuse large B-cell lymphoma who is finishing the second cycle of chemotherapy with Rituxan and EPOCH without vincristine. She completed the four day infusional doxorubicin and etoposide early this morning and received cyclophosphamide thereafter. She has not had any fevers or any major issues during the treatment, as expected, and has been ambulatory. No fevers. PHYSICAL EXAMINATION: Oral cavity shows no lesions. The lungs are clear. No peripheral edema. LAB STUDIES: Show a hemoglobin of 8.0. White count and platelet count stable. No significant other derangements. ASSESSMENT AND PLAN: A 62-year-old lady with aggressive diffuse large B-cell lymphoma undergoing chemotherapy with Rituxan EPOCH without vincristine due to severe peripheral neuropathy causing bilateral foot drop from vincristine as part of trough before. We are noticing an improvement trend of her foot drop as she is now moving both feet somewhat. She concluded the second cycle of EPOCH today at around noon. She will be discharged later today as discussed with the hospitalist team. Her prednisone will be tapered down to 20 mg daily for three days, then 10 mg daily until her next visit. In my absence, she will come back with an interim visit next March 07, with our [employer] ENGINEER to assess lab issues and toxicity matters. The threshold for transfusion is fairly low with her and if her hemoglobin is below 8, she should receive 2 units of packed red cells. She is giving herself Granix injections at home for G-CSF support and is advised to start that tomorrow afternoon for 10 consecutive days.
== END 2017-02-27 14:20 | disposition home health service (06) | DRG 847 ==
LOC: OSC 09:17
PROVIDERS: ADMIT Internal Medicine Hematology & Oncology; ATTEND Internal Medicine
DX: Z51.11 Encounter for antineoplastic chemotherapy (principal); C83.30 Diffuse large B-cell lymphoma, unspecified site; G62.0 Drug-induced polyneuropathy; T45.1X5A Adverse effect of antineoplastic and immunosuppressive drugs, initial encounter; R00.0 Tachycardia, unspecified

== ENCOUNTER 2017-03-16 09:04 | Inpatient (IN) | payer OTHER ==
[2017-03-16] VITALS (9 sets, daily range): BP systolic 97–117; BP diastolic 62–71; PULSE 69–92; RESP 16–20; O2SAT 96–100
[~2017-03-16] VITALS: Ht 165.1 cm; Wt 65.1 kg
[2017-03-16] MEDS: predniSONE 20 mg Tablet PO SCH (08:00)
[~2017-03-16 09:04] MED LIST changes: -LORA-302 PO; -TBO-480S SQ
--- NOTE | 2017-03-16 09:30 | NUR ---
Admission Pt admitted to [facility] unit, 1001, at 0915. Arrived to unit after being seen by Dr. Kc this morning. A&Ox3, LUCIANO, VSS, Port accessed by IV therapy (left chest) - blood return present - NS at 75ml/hr, Pt ambulating independently - continues to wear AFO braces bilaterally but no longer using cane, Placed on telemetry - NSR 80s, Personal belongings with pt and pt oriented to room. Pt later changed from 1001 to 1003 as pt feeling claustrophobic in corner room (room change after ~1410). Family at bedside.
--- NOTE | 2017-03-16 10:53 | PCM.HPMED ---
Subjective Date of Service Mar 16, 2017 Primary Provider: Admitting Physician: Kojo Ferris MD Primary Care Physician: Sarah Mahajan MD Attending Physician: Kojo Ferris MD Chief Complaint: Admitted for chemotherapy History of Present Illness: 62-year-old female with aggressive diffuse large B cell non-Hodgkin's lymphoma diagnosed in October 2016, received R-CHOP but poorly responded and developed peripheral neuropathy suspected from vincristine, autonomic neuropathy with sinus tachycardiac currently on BB. pt was sent from clinic for elective chemo. She has received so far 2 out of 3 planned Rituxan EPOCH. As per , pt is admitted to hospital for final dose of chemotherapy with Rituxan and EPOCH, which is a four day infusional therapy with the Rituxan on day one, and then infusional etoposide and doxorubicin over four consecutive days, followed by a short infusion of cyclophosphamide. During the interview, pt denied any new complaints, ROS: Denied fever, chills, cough, sputum, abd pain/n/v/c/d. chest pain, Review of Systems: Pertinent positives as noted in history of present illness. All other systems were reviewed and are negative Allergies Coded Allergies: No Known Allergies (Verified , 01/05/17) Home Medications MEDICATION: 1. Metoprolol succinate extended release 50 mg daily. 2. Prednisone that has been tapered down to 5 mg now. 3. Compazine. 4. Zofran. 5. Lorazepam. 6. Ibuprofen. 7. Tylenol. PMH PAST MEDICAL HISTORY: History of previous C. difficile colitis in 2004. Ankle repair surgery in 2003. SOCIAL HISTORY: She is . 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 Social History Hx Alcohol Use: No Hx Substance Use: No Hx Tobacco Use: No Smoking Status: Never Smoker Exam Vital Signs Vital Sign - Last Date Time Temp Pulse Resp B/P Pulse Ox O2 Delivery O2 Flow Rate FiO2 03/16/17 09:54 36.7 87 16 104/71 99 Room Air Exam NAD, comfortably laying down on the bed no JVD, MMM, no LAD RRR, nl s1, s2 no mrg CTAB, no w,c S,ND,NT,normoactive BS+ warm, no edema, pulses 2/2 Assessment & Plan 62-year-old female with aggressive diffuse large B cell non-Hodgkin's lymphoma diagnosed in October 2016, received R-CHOP but poorly responded and developed peripheral neuropathy suspected from vincristine, autonomic neuropathy with sinus tachycardiac currently on BB, pt was sent from clinic for final3 /3 cycles of Rituxan plus EPOCH again without vincristine #Aggressive diffuse large B-cell non-Hodgkin's lymphoma- present on admission, active -currently undergoing cycle3 R plus EPOCH. -start chemotx today order written by . following recommendations: chemo schedule til 03/20: Four day infusional therapy with the Rituxan on day one , and then infusional etoposide and doxorubicin over four consecutive days, followed by a short infusion of cyclophosphamide. -03/21 start at home G-CSF administration with Granix starting March 21 for 10 consecutive days and she had already the prescription -prophylactic levofloxacin 500 mg for 7 days to start on Sunday, March 24, to cover her during the time of expected neutropenia. -Her prednisone will be at 100 mg daily during the chemotherapy and then cut down to 20 mg for three days, after that 10 mg for three days and then 5 mg daily for five days and then stop. -Zofran when necessary, IV fluids as needed, - Check daily blood sugars as patient is being given prednisone however lower dose than the previous admission. - Telemetry. #Sinus tachycardia with hypotension, likely due to autonomic neuropathy- present on admission, active-Dr. Sampson he believes that this is secondary to chemotherapy. -Continue metoprolol home medication. - Patient usually has a low blood pressure, to give fluids boluses as needed. Chronic, stable #peripheral neuropathy with bilateral foot drop - chronic stable. Complication from vincristine. stable dispo:Patient will be admitted with inpatient status with expectation of inpatient therapy for more than 2 midnights diet:general dvt ppx:SCD Full code Time spent 65 minutes Danisha Cueva MD Mar 16, 2017 10:53
[2017-03-16] MEDS ORDERED: Ondansetron 2 mg/mL 2 mL Inj IVPUSH PRN ×2 (10:55→11:10)
[2017-03-16] MEDS: MeTOProlol XL 50 mg ER24 Tablet PO SCH (11:08)
[2017-03-16] MEDS: 0.9% Sodium Chloride 1,000 ML IV SCH (11:31)
[2017-03-16] MEDS ORDERED: PREDNISONE PO SCH (12:03)
[2017-03-16] MEDS ORDERED: Ondansetron 2 mg/mL 2 mL Inj IVPUSH ONE (13:18)
[2017-03-16] MEDS ORDERED: Ondansetron 2 mg/mL 2 mL Inj IVPUSH SCH (13:30)
[2017-03-16] MEDS ORDERED: RITUXIMAB IV ONE ×2 (13:30)
[2017-03-16] MEDS ORDERED: SODIUM CHLORIDE 0.9% IV ONE ×2 (13:30)
--- NOTE | 2017-03-16 14:26 | NUR ---
Chemotherapy: Cycle 3 - Day 1 Pt received premedications and Rituxan dose started at 1426. VSS; Port accessed and blood returned rechecked and blood blood return present prior to start of infusion. Started infusion at 50ml/hr running concurrently with NS at 75ml/hr for hydration. Dose increased to 100ml/hr. Set to beep at 30minutes for recheck and dose increase. Call light in reach. Care continues. Addendum: 03/16/17 at 1910 by MOLLY PRADO RN at ~1639, Rituxan infusion completed. Await Doxorubicin/Etoposide infusion from pharmacy.
[2017-03-16] MEDS: PREDNISONE PO SCH (14:36)
[2017-03-16] MEDS: Trimethoprim-Sulfa 160 mg-800 mg Tablet PO SCH (14:36)
[2017-03-16] MEDS ORDERED: Sodium Chloride LOK Flush 10 mL Syringe IVFLUSH PRN ×2 (16:20)
[2017-03-16] MEDS: 0.9% Sodium Chloride 250 ML IV SCH (16:20)
[2017-03-16] MEDS ORDERED: HepLOK Flush 100 unit/mL 5 mL Inj IVFLUSH PRN (16:20)
[2017-03-16] MEDS ORDERED: oxyCODONE-Acetamin 5-325 mg Tablet PO PRN (16:25)
[2017-03-16] MEDS: Ondansetron 2 mg/mL 2 mL Inj IVPUSH SCH (17:00)
[2017-03-16] MEDS: SODIUM CHLORIDE 0.9% IV SCH (17:35)
[2017-03-16] MEDS: ETOPOSIDE IV SCH (17:35)
[2017-03-16] MEDS: DOXORUBICIN IV SCH (17:35)
--- NOTE | 2017-03-16 17:48 | NUR ---
DOXORUBICIN/ETOPOSIDE Pt with Portacath to left chest infusing 1st of 4x 24hr infusion bags - infusing at 22.7ml/hr to infuse over 22hrs per Dr. Kc written orders. Brisk blood return present. Pt aware of s/sx to watch for and let staffing know about. No questions/concerns with infusion. VS obtained and stable. Awaiting dinner. at present. Care continues. Addendum: 03/16/17 at 1911 by MOLLY PRADO RN Dr. Kc present at ~1800 and is aware of the current infusion rate to complete infusion over 22hrs despite pharmacy label stating over 24hrs.
--- NOTE | 2017-03-16 19:01 | CCS NOTE ---
[facility] [address] [address] MEDICAL ONCOLOGY OFFICE NOTE PATIENT: MAYCOL IRBY : 1955 MR#: [id number] DATE: 03/16/2017 JOB ID: [id number] DATE: 03/16/2017 The patient was admitted through the clinic today electively for cycle three of rituximab plus infusional EPOCH chemotherapy for her lymphoma. For details, please refer to my note of earlier today from the office visit summarizing the details. I saw her in the afternoon in the hospital and treatment has been started as planned, and I communicated with the nurse to confirm that the daily infusion of etoposide and doxorubicin can run over 22 hours rather than 24 hours so that she can finish on time on Sunday, as with previous cycle.
[2017-03-16] MEDS ORDERED: Famotidine Inj 20 MG in IV Premix 1 EACH IV SCH (20:30)
[2017-03-16] MEDS: LORazepam 1 mg Tablet PO PRN (22:35)
[2017-03-17] VITALS (9 sets, daily range): BP systolic 105–137; BP diastolic 64–79; PULSE 68–95; RESP 16–18; O2SAT 95–99
[2017-03-17] MEDS: 0.9% Sodium Chloride 1,000 ML IV SCH ×2 (01:38→14:47)
[2017-03-17 06:27] LABS: Phosphorus 3.9 mg/dL (2.5-4.9)
[2017-03-17 06:30] LABS: BASOPHILS % (AUTO) 0 % (0-3); EOSINOPHILS % (AUTO) 0 % (0-5); MONOCYTES % (AUTO) 5.9 % (4-12); Mean Corpuscular Hemoglobin 31.8 pg (27.0-35.0); Mean Corpuscular Volume 100.8 fL (81-100); NEUTROPHILS % (AUTO) 82.3 % (40-74); Platelet Count 238 bil/L (150-400)
--- NOTE | 2017-03-17 06:35 | NUR ---
Chemo Infusing at 22.7 ml's / hr denies C.P / SOB or nausea overnight. PAC patent with brisk blood return. Ambulating hallway at HS with - HR sinus tach 120's with activity then sinus 90's when back in bed. Ativan 1mg PO given at bedtime per patient request. Sleeping well.
[2017-03-17] MEDS: predniSONE 20 mg Tablet PO SCH (08:00)
[2017-03-17] MEDS: MeTOProlol XL 50 mg ER24 Tablet PO SCH (08:52)
[2017-03-17] MEDS: Trimethoprim-Sulfa 160 mg-800 mg Tablet PO SCH (08:52)
[2017-03-17] MEDS: PREDNISONE PO SCH (09:07)
--- NOTE | 2017-03-17 09:26 | NUR ---
Social Work: Initial Assessment/Readiness for Discharge/Multi-Disciplinary Rounds D:EMR reviewed. Please see Initial Assessment linked to this note for more information. Pt is a 62 y/o female admitted for scheduled Chemo infusion for large B cell lymphoma per H&P. Pt has a readmit risk score of 2. Pt is a re-admit for scheduled chemo infusion. MARNIE met with pt and spouse at bedside to conduct initial assessment. Pt was alert and oriented x3. SW explained role and wrote phone number on white board. SW provided "Your Discharge Planning Checklist" and encouraged pt to contact SW for any discharge planning questions. Pt's insurance is [employer] [facility]. PCP is Sarah Mahajan MD and Dr. Kc (Oncology) - pt screened in for full assessment due to multiple providers and medical complexities. Pt gave verbal consent to contact for spouse, Horace Orozco [phone] for discharge planning. DPOA/advanced directive ppw discussed and pt encouraged to provide a completed copy to the hospital. Per rounds, pt to receive last Chemo infusion on 03/20 and discharge 03/21, as scheduled. No discharge needs identified. A: SW assessed pt's capacity for self-care. SW does not have any concerns for pt's capacity for self-care. Pt is independent at baseline. P: Pt likely to discharge with spouse tomorrow via POV. Pt does not have any discharge needs at this time. SW will continue to follow for needs. ELVIS Kaufman Addendum: 03/17/17 at 0928 by REGINA ALANIS Amended: Links added.
--- NOTE | 2017-03-17 09:26 | NUR ---
Chemotherapy: Initial assessment for day Pt with left chest PORTACATH infusing Doxorubicin/Etoposide at 22.7ml/hr. Pt tolerating without issue. Infusing concurrently with NS at 75ml/hr. Chemo precautions in place - family aware of these precautions as well. Blood return checked and present with brisk blood return. IV therapy present and reinforced PORT dressing. Care continues. at bedside.
--- NOTE | 2017-03-17 09:40 | PCM.PNMED ---
Subjective Date of Service Mar 17, 2017 Subjective pt is doing okay, denied n/v/sob, cough remained HD stable, afebrile, Exam Vital Signs Vital Sign - Last Date Time Temp Pulse Resp B/P Pulse Ox O2 Delivery O2 Flow Rate FiO2 03/17/17 08:55 36.6 82 16 105/64 98 Room Air Intake and Output 03/16/17 03/16/17 03/17/17 Cumulative From/Thru 15:00 23:00 07:00 03/16/17 09:52 - 03/17/17 06:33 Intake Total 2654 ml 1113 ml 3767 ml Balance 2654 ml 1113 ml 3767 ml Intake Oral 1000 ml 1000 ml IV Total 854 ml 1113 ml 1967 ml TPN/PPN 800 ml 800 ml # Bowel Movements 0 0 Exam NAD, comfortably laying down on the bed no JVD, MMM, no LAD RRR, nl s1, s2 no mrg CTAB, no w,c S,ND,NT,normoactive BS+ warm, no edema, pulses 2/2 IVs and Medications Medications Reviewed: Medications were reviewed in detail Lab and Diagnostics Result Diagram: 03/17/1751303/17/17513 Assessment & Plan 62-year-old female with aggressive diffuse large B cell non-Hodgkin's lymphoma diagnosed in October 2016, received R-CHOP but poorly responded and developed peripheral neuropathy suspected from vincristine, autonomic neuropathy with sinus tachycardiac currently on BB, pt was sent from clinic for final3 /3 cycles of Rituxan plus EPOCH again without vincristine #Aggressive diffuse large B-cell non-Hodgkin's lymphoma- present on admission, active -currently undergoing cycle3 R plus EPOCH. -pt remained stable with active chemo tx -started chemotx 03/16, order written by . following recommendations: chemo schedule til 03/20: Four day infusional therapy with the Rituxan on day one , and then infusional etoposide and doxorubicin over four consecutive days, followed by a short infusion of cyclophosphamide. -03/21 start at home G-CSF administration with Granix starting March 21 for 10 consecutive days and she had already the prescription -prophylactic levofloxacin 500 mg for 7 days to start on Sunday, March 24, to cover her during the time of expected neutropenia. -Her prednisone will be at 100 mg daily during the chemotherapy and then cut down to 20 mg for three days, after that 10 mg for three days and then 5 mg daily for five days and then stop. -Zofran when necessary, IV fluids as needed, - Check daily blood sugars as patient is being given prednisone however lower dose than the previous admission. - Telemetry. #Sinus tachycardia with hypotension, likely due to autonomic neuropathy- present on admission, active-Dr. Sampson he believes that this is secondary to chemotherapy. -Continue metoprolol home medication. - Patient usually has a low blood pressure, to give fluids boluses as needed. Chronic, stable #peripheral neuropathy with bilateral foot drop - chronic stable. Complication from vincristine. stable dispo:likely 03/20 based on chemo schedule diet:general dvt ppx:SCD Full code VTE Mechanical Devices: Intermittant Pneumatic CD Time spent 35min Danisha Cueva MD Mar 17, 2017 09:40
[2017-03-17] MEDS: 0.9% Sodium Chloride 250 ML IV SCH (14:48)
[2017-03-17] MEDS ORDERED: SODIUM CHLORIDE 0.9% IVPUSH SCH (16:30)
[2017-03-17] MEDS ORDERED: ONDANSETRON IVPUSH SCH (16:30)
[2017-03-17] MEDS: SODIUM CHLORIDE 0.9% IV SCH (17:28)
[2017-03-17] MEDS: ETOPOSIDE IV SCH (17:28)
[2017-03-17] MEDS: Ondansetron 2 mg/mL 2 mL Inj IVPUSH SCH (17:28)
[2017-03-17] MEDS: DOXORUBICIN IV SCH (17:28)
--- NOTE | 2017-03-17 18:00 | NUR ---
Chemo: Day 2 D/t overfill, 1st dose not completed until 1730 (ended up running over 24hrs instead of anticipated 22hrs). VS stable; Port site CDI; Brisk blood return again checked and present prior to start of Doxorubicin and Etoposide. Chemotherapy infusing again at 22.7ml/hr to again infuse over 22hr period. Pt aware of s/sx to watch for. Family and friends visiting at bedside. Care continues
[2017-03-17] MEDS: LORazepam 1 mg Tablet PO PRN (22:14)
[2017-03-18] VITALS (8 sets, daily range): BP systolic 98–114; BP diastolic 53–71; PULSE 63–91; RESP 16–18; O2SAT 96–97
[2017-03-18] MEDS: 0.9% Sodium Chloride 1,000 ML IV SCH ×2 (03:55→17:07)
--- NOTE | 2017-03-18 06:05 | NUR ---
Activity Chemotherapy, Doxorubicin and Etoposide infusing at 22.7ml/hr. Brisk blood return from port. Pt had headache at beginning of shift that was treated with 400 mg Motrin. Pt also took ativan to help her sleep.
[2017-03-18 06:54] LABS: BASOPHILS % (AUTO) 0.2 % (0-3); EOSINOPHILS % (AUTO) 0 % (0-5); MONOCYTES % (AUTO) 11.2 % (4-12); Mean Corpuscular Volume 100.8 fL (81-100); NEUTROPHILS % (AUTO) 80.8 % (40-74); Platelet Count 221 bil/L (150-400)
[2017-03-18 07:47] LABS: Phosphorus 3.1 mg/dL (2.5-4.9)
[2017-03-18] MEDS: MeTOProlol XL 50 mg ER24 Tablet PO SCH (08:30)
--- NOTE | 2017-03-18 09:32 | PCM.PNMED ---
Subjective Date of Service Mar 18, 2017 Subjective pt is doing well, denied any compliants, dyspnea labs are stable, Doxorubicin, Etoposide running Exam Vital Signs Vital Sign - Last Date Time Temp Pulse Resp B/P Pulse Ox O2 Delivery O2 Flow Rate FiO2 03/18/17 06:17 67 03/18/17 05:50 36.7 16 110/65 96 Room Air Intake and Output 03/17/17 03/17/17 03/18/17 Cumulative From/Thru 15:00 23:00 07:00 03/16/17 09:52 - 03/18/17 06:44 Intake Total 100 ml 2930 ml 1609 ml 8406 ml Output Total 1350 ml 1050 ml 1500 ml 3900 ml Balance -1250 ml 1880 ml 109 ml 4506 ml Intake Oral 100 ml 1773 ml 500 ml 3373 ml IV Total 1157 ml 1109 ml 4233 ml TPN/PPN 800 ml Output Urine Total 1350 ml 1050 ml 1500 ml 3900 ml # Bowel Movements 1 0 1 Exam NAD, comfortably laying down on the bed no JVD, MMM, no LAD RRR, nl s1, s2 no mrg CTAB, no w,c S,ND,NT,normoactive BS+ warm, no edema, pulses 2/2 IVs and Medications Medications Reviewed: Medications were reviewed in detail Lab and Diagnostics Result Diagram: 03/18/1763203/18/17632 Assessment & Plan 62-year-old female with aggressive diffuse large B cell non-Hodgkin's lymphoma diagnosed in October 2016, received R-CHOP but poorly responded and developed peripheral neuropathy suspected from vincristine, autonomic neuropathy with sinus tachycardiac currently on BB, pt was sent from clinic for final3 /3 cycles of Rituxan plus EPOCH again without vincristine #Aggressive diffuse large B-cell non-Hodgkin's lymphoma- present on admission, active -currently undergoing cycle3 R plus EPOCH. -pt remained stable with active chemo tx -started chemotx 03/16, order written by . following recommendations: chemo schedule til 03/20: Four day infusional therapy with the Rituxan on day one , and then infusional etoposide and doxorubicin over four consecutive days, followed by a short infusion of cyclophosphamide. -03/21 start at home G-CSF administration with Granix starting March 21 for 10 consecutive days and she had already the prescription -prophylactic levofloxacin 500 mg for 7 days to start on Sunday, March 24, to cover her during the time of expected neutropenia. -Her prednisone will be at 100 mg daily during the chemotherapy and then cut down to 20 mg for three days, after that 10 mg for three days and then 5 mg daily for five days and then stop. -Zofran when necessary, IV fluids as needed, - Check daily blood sugars as patient is being given prednisone however lower dose than the previous admission. - Telemetry. #Sinus tachycardia with hypotension, likely due to autonomic neuropathy- present on admission, active-Dr. Sampson he believes that this is secondary to chemotherapy. -Continue metoprolol home medication. - Patient usually has a low blood pressure, to give fluids boluses as needed. Chronic, stable #peripheral neuropathy with bilateral foot drop - chronic stable. Complication from vincristine. stable dispo:likely 03/20 based on chemo schedule diet:general dvt ppx:SCD Full code VTE Mechanical Devices: Intermittant Pneumatic CD Time spent 35min Danisha Cueva MD Mar 18, 2017 09:32
[2017-03-18] MEDS: Trimethoprim-Sulfa 160 mg-800 mg Tablet PO SCH (09:33)
[2017-03-18] MEDS: PREDNISONE PO SCH (09:35)
--- NOTE | 2017-03-18 12:30 | CCS NOTE ---
[facility] [address], [address] [address] MEDICAL ONCOLOGY OFFICE NOTE PATIENT: MAYCOL IRBY : 1955 MR#: [id number] DATE: 03/16/2017 JOB ID: [id number] DATE: 03/18/2017 I spoke with the patient and the patient's nurse and reviewed the lab results in [place]. The patient is finishing the 2nd infusional doxorubicin/etoposide day and her and day 3 is anticipated to start around 2 p.m. today. She has tolerated it so far well, without any incident. Her blood pressure tends to be low chronically and her nurse held the metoprolol today, which is fine, however I advised her that if her tachycardia gets worse then she should go ahead and receive the metoprolol. At this point her heart rate is acceptable. She tends to have sinus tachycardia. Lab studies reviewed and her hemoglobin has drifted down currently 7.7. At this point no need for blood transfusion, however we might need to transfuse her at the end of this cycle to prevent worsening symptoms of anemia. We will make that decision based on her CBC on Sunday. The treatment will continue as planned and the patient is overall ambulatory and did not have any major issues.
[2017-03-18] MEDS: Ondansetron 2 mg/mL 2 mL Inj IVPUSH SCH (15:14)
[2017-03-18] MEDS: ETOPOSIDE IV SCH (15:14)
[2017-03-18] MEDS: DOXORUBICIN IV SCH (15:14)
[2017-03-18] MEDS: SODIUM CHLORIDE 0.9% IV SCH (15:14)
[2017-03-18] MEDS: 0.9% Sodium Chloride 250 ML IV SCH (16:20)
--- NOTE | 2017-03-18 16:30 | NUR ---
Chemotherapy: Day 3 Pt with 3rd bag of Etoposide/Doxorubicin infusion hung at 1530. A&Ox3, LUCIANO, VSS, Port site CDI, Brisk blood return present, IVP premed 16mg Zofran given, No questions/concerns. Infusing. VSS 15mins post chemo start. Care continues.
[2017-03-18] MEDS: LORazepam 1 mg Tablet PO PRN (22:27)
[2017-03-19] VITALS (8 sets, daily range): BP systolic 107–127; BP diastolic 66–75; PULSE 63–80; RESP 16; O2SAT 94–97
--- NOTE | 2017-03-19 04:27 | NUR ---
Activity Doxorubicin and Etoposide continue to infuse at 22.7ml/hr. Port with brisk blood return. Pt walking hallway with and reported doing 11 laps total for the day. Pt had headache 4/10 at bedtime and pt requested to have only 200 mg Motrin. Pt also requested Ativan at bedtime and has been able to sleep. Pt on tele, SR 60s.
[2017-03-19 05:36] LABS: BASOPHILS % (AUTO) 0 % (0-3); EOSINOPHILS % (AUTO) 0 % (0-5); MONOCYTES % (AUTO) 9.9 % (4-12); Mean Corpuscular Hemoglobin 32.6 pg (27.0-35.0); Mean Corpuscular Volume 100.5 fL (81-100); NEUTROPHILS % (AUTO) 82.4 % (40-74); Platelet Count 206 bil/L (150-400)
[2017-03-19] MEDS: 0.9% Sodium Chloride 1,000 ML IV SCH ×2 (06:23→14:02)
[2017-03-19] MEDS: Trimethoprim-Sulfa 160 mg-800 mg Tablet PO SCH (08:40)
[2017-03-19] MEDS: PREDNISONE PO SCH (08:40)
--- NOTE | 2017-03-19 09:37 | PCM.PNMED ---
Subjective Date of Service Mar 19, 2017 Subjective no overnight event tolerating chemo well, denied SOB, chest pain, cough, abd pain, n,v eating okay Exam Vital Signs Vital Sign - Last Date Time Temp Pulse Resp B/P Pulse Ox O2 Delivery O2 Flow Rate FiO2 03/19/17 08:58 63 03/19/17 08:18 36.6 16 122/75 94 Room Air Intake and Output 03/18/17 03/18/17 03/19/17 Cumulative From/Thru 15:00 23:00 07:00 03/16/17 09:52 - 03/19/17 06:47 Intake Total 2669 ml 1562 ml 74816 ml Output Total 1100 ml 1200 ml 6200 ml Balance 1569 ml 362 ml 6437 ml Intake Oral 1402 ml 591 ml 5366 ml IV Total 1267 ml 971 ml 6471 ml TPN/PPN 800 ml Output Urine Total 1100 ml 1200 ml 6200 ml # Bowel Movements 0 0 1 Exam NAD, comfortably laying down on the bed no JVD, MMM, no LAD RRR, nl s1, s2 no mrg CTAB, no w,c S,ND,NT,normoactive BS+ warm, no edema, pulses 2/2 IVs and Medications Medications Reviewed: Medications were reviewed in detail Lab and Diagnostics Result Diagram: 03/19/1743903/19/17439 Assessment & Plan 62-year-old female with aggressive diffuse large B cell non-Hodgkin's lymphoma diagnosed in October 2016, received R-CHOP but poorly responded and developed peripheral neuropathy suspected from vincristine, autonomic neuropathy with sinus tachycardiac currently on BB, pt was sent from clinic for final3 /3 cycles of Rituxan plus EPOCH again without vincristine #Aggressive diffuse large B-cell non-Hodgkin's lymphoma- present on admission, active -currently undergoing cycle3 R plus EPOCH. -pt remained stable with active chemo tx -started chemotx 03/16, order written by . following recommendations: chemo schedule til 03/20: Four day infusional therapy with the Rituxan on day one , and then infusional etoposide and doxorubicin over four consecutive days, followed by a short infusion of cyclophosphamide. -03/21 start at home G-CSF administration with Granix starting March 21 for 10 consecutive days and she had already the prescription -prophylactic levofloxacin 500 mg for 7 days to start on Sunday, March 24, to cover her during the time of expected neutropenia. -Her prednisone will be at 100 mg daily during the chemotherapy and then cut down to 20 mg for three days, after that 10 mg for three days and then 5 mg daily for five days and then stop. -Zofran when necessary, IV fluids as needed, - Check daily blood sugars as patient is being given prednisone however lower dose than the previous admission. - Telemetry. #Sinus tachycardia with hypotension, likely due to autonomic neuropathy- present on admission, active-Dr. Sampson he believes that this is secondary to chemotherapy. -Continue metoprolol home medication. - Patient usually has a low blood pressure, to give fluids boluses as needed. Chronic, stable #peripheral neuropathy with bilateral foot drop - chronic stable. Complication from vincristine. stable dispo:likely 03/21 based on chemo schedule diet:general dvt ppx:SCD Full code VTE Mechanical Devices: Intermittant Pneumatic CD Time spent 35min Danisha Cueva MD Mar 19, 2017 09:37
--- NOTE | 2017-03-19 09:57 | NUR ---
Tachy /BP Pt was SR 60s this AM therefore Metoprolol 50mg held. Although once up and moving pt was ST 100 up to 140s at times. After rest Pt remains Sinus Tach 100s. BP 107/67. MD aware and confirms go ahead and give PO Metoprolol 50mg as ordered. Care continues
[2017-03-19] MEDS: MeTOProlol XL 50 mg ER24 Tablet PO SCH (09:58)
[2017-03-19] MEDS: 0.9% Sodium Chloride 250 ML IV SCH (10:13)
[2017-03-19] MEDS: Ondansetron 2 mg/mL 2 mL Inj IVPUSH SCH (13:31)
[2017-03-19] MEDS: SODIUM CHLORIDE 0.9% IV SCH (13:56)
[2017-03-19] MEDS: ETOPOSIDE IV SCH (13:56)
[2017-03-19] MEDS: DOXORUBICIN IV SCH (13:56)
--- NOTE | 2017-03-19 18:19 | CCS NOTE ---
[facility] [address], [address] [address] MEDICAL ONCOLOGY OFFICE NOTE PATIENT: MAYCOL IRBY : 1955 MR#: [id number] DATE: 03/16/2017 JOB ID: [id number] DATE: 03/19/2017 The patient was seen at bedside today. She is somewhat more fatigued but no significant shortness of breath. She ambulated in the hallway, became a little more tachycardic. Her metoprolol that was held was then administered. She has finished day three of the infusional doxorubicin and etoposide and her day four and final bag is about to be administered that runs until tomorrow noon approximately. Vitals currently are stable with a heart rate in the 60s, blood pressure 107/67. No rash. No oral cavity lesion. Portal catheter shows no signs of inflammation. Minimal edema in the ankles. LABORATORIES: Show a white count of 4.0, hemoglobin dropped to 7.2, platelets 206. Chemistry shows stable electrolytes. Creatinine 0.5. Normal LFTs. ASSESSMENT AND PLAN: A 62-year-old lady with ongoing chemotherapy for diffuse large B-cell lymphoma. She is receiving her final cycle of Rituxan plus EPOCH without vincristine. Today afternoon, she will start day four of the infusion of etoposide and doxorubicin and should finish that tomorrow early around noon and then receive the cyclophosphamide. She has tolerated so far the treatment well, but her anemia is getting worse to the point that I think that she will require blood transfusion. We reviewed that, and I suggested that depending on her CBC level tomorrow, we can then make a decision whether she received the blood transfusion immediately after finishing chemo which will delay her discharge tomorrow into the evening or late evening hours or whether it would be safe to discharge her as planned tomorrow early afternoon, and have her come the next day to the clinic to receive the blood transfusion.
[2017-03-19] MEDS: LORazepam 1 mg Tablet PO PRN (22:18)
[2017-03-20 00:40] VITALS: BP 129/68; PULSE 62; RESP 18; O2SAT 97
--- NOTE | 2017-03-20 02:28 | NUR ---
Nausea Mild complaints of nausea at bedtime. No emesis. Received Compazine 10mg PO with effective results. Up independently in room. Gait steady. Denies pain. Received Ativan PO to help sleep. Has been resting with eyes closed upon each rounding. Chemo continues to infuse without issue.
[2017-03-20] MEDS: 0.9% Sodium Chloride 1,000 ML IV SCH (03:35)
[2017-03-20 04:50] VITALS: BP 123/69; PULSE 71; RESP 20; O2SAT 95
[2017-03-20 05:32] LABS: BASOPHILS % (AUTO) 0 % (0-3); EOSINOPHILS % (AUTO) 0 % (0-5); MONOCYTES % (AUTO) 5.4 % (4-12); Mean Corpuscular Hemoglobin 32.2 pg (27.0-35.0); Mean Corpuscular Volume 98.7 fL (81-100); NEUTROPHILS % (AUTO) 86.6 % (40-74); Platelet Count 216 bil/L (150-400)
[2017-03-20 06:06] LABS: Phosphorus 3.3 mg/dL (2.5-4.9)
[2017-03-20 07:51] VITALS: BP 124/73; PULSE 76; RESP 18; O2SAT 96
[2017-03-20] MEDS: PREDNISONE PO SCH (09:02)
[2017-03-20] MEDS: Trimethoprim-Sulfa 160 mg-800 mg Tablet PO SCH (09:03)
[2017-03-20] MEDS: MeTOProlol XL 50 mg ER24 Tablet PO SCH (09:03)
--- NOTE | 2017-03-20 09:19 | PCM.DIMED ---
Discharge Instructions Date of Service Mar 20, 2017 Dates of Hospitalization Mar 16, 2017 at 09:28 Discharge Diagnosis Discharge Diagnosis acute dx #Aggressive diffuse large B-cell non-Hodgkin's lymphoma, finished third cycle of chemotherapty R-EPOCH. Chronic dx #Sinus tachycardia with hypotension, likely due to autonomic neuropathy #peripheral neuropathy with bilateral foot drop Diet Discharge Diet: No restrictions Activity Discharge Activity: No restrictions Call your provider Call your provider for: Fever or Chills, Shortness of breath Patient Instructions Patient Instructions You were hospitalized for elective chemotherapy. You tolerated well without complication. Please follow 's recommendation and follow up as scheduled Start at home G-CSF administration with Granix starting March 21 for 10 consecutive days prophylactic levofloxacin 500 mg for 7 days to start on Sunday, March 24, to cover her during the time of expected neutropenia. prednisone take 20 mg for three days, after that 10 mg for three days and then 5 mg daily for five days and then stop. Please follow up with as scheduled on March 27 in the clinic Follow-up Provider: Kojo Ferris MD Follow-up with PCP in: 1 week Danisha Cueva MD Mar 20, 2017 09:14
[2017-03-20 10:13] VITALS: PULSE 73
[2017-03-20] MEDS ORDERED: CYCLOPHOSPHAMIDE IV ONE (12:00)
[2017-03-20] MEDS ORDERED: Palonosetron 0.05 mg/mL 5 mL Inj IV ONE (12:00)
[2017-03-20] MEDS ORDERED: SODIUM CHLORIDE 0.9% IV ONE (12:00)
[2017-03-20] MEDS: Ondansetron 2 mg/mL 2 mL Inj IVPUSH SCH (12:26)
[2017-03-20] MEDS: 0.9% Sodium Chloride 250 ML IV SCH (12:27)
[2017-03-20 12:40] VITALS: BP 109/66; PULSE 85; RESP 18; O2SAT 94
--- NOTE | 2017-03-20 14:49 | NUR ---
spiritual care: nurse referral conversational visit and prayer. pt sifted through experiences and emotions about her treatment regime, her experiences of support, spirituality, sustenance and hopefulness.
--- NOTE | 2017-03-20 15:21 | NUR ---
DC Pt leave with . All discharge instruction reviewed and understood by pt. No further questions. Pt to go to Clinic in AM to receive Blood Transfusion in AM. Care discontinues
--- NOTE | 2017-03-20 15:37 | PCM.DC.MED ---
Discharge Summary Date of Service Mar 20, 2017 Dates of Hospitalization Date of Hospital Admission Mar 16, 2017 at 09:28 Date of Discharge: Mar 20, 2017 Providers: Admitting Physician: Kojo Ferris MD Primary Care Physician: Sarah Mahajan MD Attending Physician: Kojo Ferris MD Diagnosis at Time of Discharge Diagnosis at Time of Discharge acute dx #Aggressive diffuse large B-cell non-Hodgkin's lymphoma, finished third cycle of chemotherapty R-EPOCH. Chronic dx #Sinus tachycardia with hypotension, likely due to autonomic neuropathy #peripheral neuropathy with bilateral foot drop Consultations Brief History HPI obtained on 03/16 62-year-old female with aggressive diffuse large B cell non-Hodgkin's lymphoma diagnosed in October 2016, received R-CHOP but poorly responded and developed peripheral neuropathy suspected from vincristine, autonomic neuropathy with sinus tachycardiac currently on BB. pt was sent from clinic for elective chemo. She has received so far 2 out of 3 planned Rituxan EPOCH. As per , pt is admitted to hospital for final dose of chemotherapy with Rituxan and EPOCH, which is a four day infusional therapy with the Rituxan on day one, and then infusional etoposide and doxorubicin over four consecutive days, followed by a short infusion of cyclophosphamide. During the interview, pt denied any new complaints, ROS: Denied fever, chills, cough, sputum, abd pain/n/v/c/d. chest pain, Hospital Course 62-year-old female with aggressive diffuse large B cell non-Hodgkin's lymphoma diagnosed in October 2016, received R-CHOP but poorly responded and developed peripheral neuropathy suspected from vincristine, autonomic neuropathy with sinus tachycardiac currently on BB, pt was sent from clinic for final3 /3 cycles of Rituxan plus EPOCH again without vincristine acute dx #Aggressive diffuse large B-cell non-Hodgkin's lymphoma pt was admitted for cycle3/3 R plus EPOCH. pt tolerated chemo well, showed mild drop in h/h but maintained w/o transfusion. pt received with the plan from -started chemotx 03/16, chemo schedule til 03/20: Four day infusional therapy with the Rituxan on day one , and then infusional etoposide and doxorubicin over four consecutive days, followed by a short infusion of cyclophosphamide. plan on d/c is to -03/21 start at home G-CSF administration with Granix starting March 21 for 10 consecutive days and she had already the prescription -prophylactic levofloxacin 500 mg for 7 days to start on Sunday, March 24, to cover her during the time of expected neutropenia. -Her prednisone will be at 100 mg daily during the chemotherapy and then cut down to 20 mg for three days, after that 10 mg for three days and then 5 mg daily for five days and then stop. chronic dx #peripheral neuropathy with bilateral foot drop - chronic stable. Complication from vincristine. stable #Sinus tachycardia with hypotension, likely due to autonomic neuropathy- present on admission, active-Dr. Sampson he believes that this is secondary to chemotherapy. -Continued metoprolol home medication. Exam Vital Signs (Last) Date Time Temp Pulse Resp B/P Pulse Ox O2 Delivery O2 Flow Rate FiO2 03/20/17 12:40 36.8 85 18 109/66 94 Room Air Exam pt was examined on the day of d/c Test 03/20/17 04:52 White Blood Count 3.5th/mm3 (3.8-10.1) Red Blood Count 2.27mil/mm3 (3.90-5.20) Hemoglobin 7.3g/dL (12.0-15.6) Hematocrit 22.4% (35.0-46.0) Mean Corpuscular Volume 98.7fL (81-100) Mean Corpuscular Hemoglobin 32.2pg (27.0-35.0) Mean Corpuscular Hemoglobin Concent 32.6% (32.0-37.0) Red Cell Distribution Width 15.9% (12.3-15.4) Platelet Count 216bil/L (150-400) Neutrophils (%) (Auto) 86.6% (40-74) Lymphocytes (%) (Auto) 7.7% (14-46) Monocytes (%) (Auto) 5.4% (4-12) Eosinophils (%) (Auto) 0% (0-5) Basophils (%) (Auto) 0% (0-3) Sodium Level 143mEq/L (134-144) Potassium Level 4.1mEq/L (3.5-5.2) Chloride Level 109mEq/L (97-108) Carbon Dioxide Level 23mmol/L (18-29) Blood Urea Nitrogen 13mg/dL (8-27) Creatinine 0.57mg/dL (0.57-1.00) Estimat Glomerular Filtration Rate 154mL/min (>59) Glucose Level 89mg/dL (60-99) Calcium Level 8.6mg/dL (8.5-10.1) Phosphorus Level 3.3mg/dL (2.5-4.9) Magnesium Level 2.0mg/dL (1.6-2.6) Total Bilirubin 0.2mg/dL (0.0-1.2) Aspartate Amino Transf (AST/SGOT) 22U/L (0-50) Alanine Aminotransferase (ALT/SGPT) 22U/L (0-32) Alkaline Phosphatase 52U/L (25-165) Total Protein 4.7g/dL (6.4-8.4) Albumin 3.0g/dL (3.4-5.0) Discharge Medications Discharge Medications Metoprolol Succinate ER (Metoprolol Succinate ER) 50 Mg Tab.er.24h 50 MG PO DAILY (Reported) As needed Ibuprofen (Ibuprofen) 200 Mg Capsule 400 MG PO QID PRN PRN Bone pain (Reported) Lorazepam (Lorazepam) 0.5 Mg Tablet 0.5 MG PO HS PRN PRN For Insomnia (Reported ) Ondansetron ODT (Ondansetron ODT) 8 Mg Tab.rapdis 8 MG PO Q8H PRN PRN For Nausea (Reported) Prochlorperazine Maleate (Compazine) 10 Mg Tablet 10 MG PO q4hrs prn PRN PRN For Nausea (Reported) Followup Plan Disposition: home Discharge Diet: No restrictions Discharge Activity: No restrictions Patient Instructions You were hospitalized for elective chemotherapy. You tolerated well without complication. Please follow 's recommendation and follow up as scheduled Start at home G-CSF administration with Granix starting March 21 for 10 consecutive days prophylactic levofloxacin 500 mg for 7 days to start on Sunday, March 24, to cover her during the time of expected neutropenia. prednisone take 20 mg for three days, after that 10 mg for three days and then 5 mg daily for five days and then stop. Please follow up with as scheduled on March 27 in the clinic Follow-up Provider: Kojo Ferris MD Follow-up with PCP in: 1 week Time spent 65min Danisha Cueva MD Mar 20, 2017 15:37
--- NOTE | 2017-03-20 19:07 | CCS NOTE ---
[facility] [address], [address] [address] MEDICAL ONCOLOGY OFFICE NOTE PATIENT: MAYCOL IRBY : 1955 MR#: [id number] DATE: 03/16/2017 JOB ID: [id number] DATE: 03/20/2017 SUBJECTIVE: The patient has finished her 4th infusional day of doxorubicin and etoposide in the late morning hours today and is finishing the short infusion of cyclophosphamide which will conclude her cycle of chemotherapy with this admission. She has not had any fevers or any new issues overnight. Her CBC shows that the anemia did not further deteriorate compared to yesterday and hemoglobin remains at 7.2. PHYSICAL EXAMINATION: Her vitals are stable. She remains afebrile and has no skin reaction or signs of any mouth sores. Her heart rate remains regular. ASSESSMENT AND PLAN: A 62-year-old lady with diffuse large B-cell lymphoma, today finishing her final cycle of Rituxan plus EPOCH without vincristine. Her hemoglobin remains low but it did not further deteriorate compared to yesterday. The patient prefers to rather go home after the 4-day hospitalization once her cyclophosphamide infusion is completed in a few minutes. I think that is reasonable given the fact that her hemoglobin did not drop further and will schedule her to come to the clinic tomorrow to received 2 units of packed red cells. I requested blood transfusion orders already today with draw and hold and banding to reduce the waiting time for her tomorrow. This is already set up for her in the Cancer Clinic. She will start prophylactic antibiotics this Sunday with levofloxacin and will cut down her prednisone to 20 mg for three days starting tomorrow, then going down to 10 mg. She already has an appointment with me next week.
== END 2017-03-20 15:27 | disposition home or self-care (01) | DRG 847 ==
LOC: OSC 09:28
PROVIDERS: ADMIT Internal Medicine Hematology & Oncology; ATTEND Internal Medicine
DX: Z51.11 Encounter for antineoplastic chemotherapy (principal); C83.30 Diffuse large B-cell lymphoma, unspecified site; G90.9 Disorder of the autonomic nervous system, unspecified; R00.0 Tachycardia, unspecified; T45.1X5A Adverse effect of antineoplastic and immunosuppressive drugs, initial encounter

== ENCOUNTER 2017-04-27 20:03 | Emergency (ER) | payer OTHER ==
[~2017-04-27] VITALS: Ht 165.1 cm; Wt 61.4 kg
[~2017-04-27 20:03] MED LIST changes: -ACET325T51 PO; -IBUP200C PO; -LORA0.5T PO; -METO-272 PO; +METO-369 PO; -ONDA8TAB10 PO; -PRD5T PO; -PROC-4 PO
[2017-04-27 20:27] VITALS: BP 123/85; PULSE 85; RESP 18; O2SAT 100
[2017-04-27] MEDS ORDERED: oxyCODONE-Acetamin 5-325 mg Tablet PO ONE (21:15)
--- NOTE | 2017-04-27 21:18 | ED.REPORT ---
HPI-Extremity Problem Lower Date of Service Apr 27, 2017 ED Provider: Kumar Teixeira MD The pt is a 62 y/o female w/ a hx of lymphoma, presenting to the ED c/o increased foot pain onset a month ago. The pain is localized to the bottom of her feet. The pt reports having peripheral neuropathy from the chemotherapy that has gotten worse over the last month as well as it getting worse since the laser and infrared treatment she received a month ago. The pt used Gabapentin today w/o relief. Nursing Notes Stated Complaint: BILATERAL FOOT PAIN-NEUROPATHY (CANCER PT) Chief Complaint: Bilateral foot pain Nursing Notes Reviewed: Yes Allergies: Coded Allergies: No Known Allergies (Verified , 04/27/17) Scheduled Metoprolol Succinate ER (Metoprolol Succinate ER) 50 Mg Tab.er.24h 50 MG PO DAILY General Time Seen by MD: 21:14 Chief Complaint Other (Bilateral foot pain ) Hx Obtained From: Patient, Spouse Arrived By: Walk-in Onset Occurred: More than a week ago... (1 month) Symptom Duration: Since onset Recent Healthcare: Recent doctor visit, Recent hospitalization Similar Sx Previous: Yes Past Medical History Past Medical History 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 C. Diff infection Neuropathy from chemotherapy treatment Past Surgical History Left ankle ORIF and plate placement Smoking History Never Smoker Social History Alcohol Use: Denies alcohol use Other Social History: Good social support Ambulatory Status Independent Review of Systems Bilateral foot pain; Complete sys rev & neg: except as marked. Physical Exam Initial Vital Signs Vital Signs (First) Date Time Temp Pulse Resp B/P Pulse Ox O2 Delivery O2 Flow Rate FiO2 04/27/17 20:27 36.7 85 18 123/85 100 Room Air Initial VS: Reviewed, Vital signs normal General/Constitutional: Well-developed, Well-nourished Head / Eyes: Atraumatic, Normocephalic, PERRL ENT: Mucous membranes moist, Conjunctiva normal, No scleral icterus Neck: Supple, Non-tender, Full range of motion Respiratory: Breath sounds normal, Clear to auscultation, No respiratory distress Skin: Warm, Dry, No cyanosis Neurologic: Alert, Oriented, Nonfocal Psychiatric: Mood/affect normal, Behavior normal, Normal thought content Lower Extremity / Pelvis / MS: Full range of motion, No deformity, Neurologic intact, Vascular intact Ankle / Foot: Inspection NL, Full range of motion, No deformity Cardiovascular: Heart rate NL, Regular rhythm, Heart sounds NL, Cap refill not delayed, Peripheral circulation NL No evidence of vascular compromise Re-Eval/Medical Decision Med Decision/Clinical Course Increasingly symptomatic neuropathy. She already has access to gabapentin, oxycodone, and lorazepam. We discussed the safe use of these medications and their combinations. I also recommended a TENS unit. A friend of hers has attends which she will try using and if helpful she can purchase her own. Source of Hx: Old records Counseled Regarding: Diagnosis, Need for follow-up, When/why to return to ED Discharge & Departure Impression: Primary Impression: Peripheral neuropathy Peripheral neuropathy type: polyneuropathy, unspecified Qualified Code: G62.9 - Polyneuropathy, unspecified Disposition: Home Discharge Condition All VS Reviewed: Yes Condition: Stable Patient Instructions: Peripheral Neuropathy (ED) Additional Instructions: You have several options available to help manage the discomfort: Try your friend's TENS unit. If it is helpful you can purchase one on [employer]. Continue your lorazepam (Ativan) at your usual dose. Gabapentin (Neurontin) 300 mg once or twice daily. This sometimes becomes more effective and better tolerated with a few days use. Oxycodone opiate pain medication. Judicious use of this medication for a few days may be helpful in getting you through this acute pain episode. Do not use it for more than 3-5 days, and don't take all 3 of these medications together because the sedation is additive. Call me at [phone] between the hours of 9 PM and 6 AM ton or Sunday night if you have any questions or concerns (I'm off Sunday night). Referrals: Sarah Mahajan MD (PCP) Scribe Attestation Portions of this note were transcribed by Shailesh Luna. I, Dr. Teixeira personally performed the history, physical exam and medical decision-making; I reviewed and confirmed the accuracy of the information in the transcribed note. copies to: Sarah Mahajan MD, Kumar Toribio MD Apr 27, 2017 21:18 Shailesh Luna Apr 27, 2017 21:31
[2017-04-27 22:21] VITALS: BP 114/72; PULSE 79; RESP 20; O2SAT 99
== END 2017-04-27 22:22 | disposition home or self-care (01) ==
LOC: SED 20:03
DX: G62.9 Polyneuropathy, unspecified (principal)